=== PATIENT | male | born 1940 | race Caucasian/White ===

== ENCOUNTER 2016-06-25 10:17 | Inpatient (IN) | payer MEDICARE ==
[~2016-06-25] VITALS: Ht 170.2 cm; Wt 79.9 kg
[2016-06-25 10:23] VITALS: BP 110/55; PULSE 73; RESP 18; O2SAT 97
[2016-06-25] MEDS ORDERED: 0.9% Sodium Chloride 1,000 ML IV ONE ×2 (10:59→13:45)
[2016-06-25] MEDS ORDERED: HYDROmorphone 0.5 mg/0.5 mL iSecure Syringe IVPUSH PRN (11:00)
[2016-06-25] MEDS ORDERED: Acetaminophen IV 1,000 MG in IV Premix 1 EACH IV PRN (11:00)
[2016-06-25] MEDS ORDERED: Ondansetron 2 mg/mL 2 mL Inj IVPUSH PRN ×3 (11:00→15:40)
[2016-06-25] MEDS ORDERED: diphenhydrAMINE 25 mg Capsule PO PRN (11:00)
[2016-06-25 11:47] LABS: BASOPHILS % (AUTO) 0.3 % (0-3); EOSINOPHILS % (AUTO) 1.4 % (0-5); MONOCYTES % (AUTO) 8.5 % (4-12); Mean Corpuscular Hemoglobin 30.2 pg (27.0-35.0); Mean Corpuscular Volume 89.2 fL (81-100); NEUTROPHILS % (AUTO) 67.8 % (40-74); Platelet Count 189 bil/L (150-400)
--- NOTE | 2016-06-25 11:50 | ED.REPORT ---
HPI-Abd Pain M 40 and Over Date of Service Jun 25, 2016 ED Provider: Kimberly Brooks MD History of Present Illness: Patient is a 75 y.o. M with past medical history significant for colostomy, multiple bowel obstructions requiring surgery, CKD stage III, Began five day history of diarrhea, bloating, abdominal pain, evolved over 24 hours with increased abdominal pain nausea, vomiting, Patient irrigated ostomy last night with large return light colored stool white in color initally and brown soft to solid. Today patient describes intermittant little sharp cramps, made better by nothing, made worse by nothing, stated pain was worse at home, no chills, no fever, no nausea, vomit x 1 this morning reddish color. Last meal was steak and green beans last night. Previous colonscopy two years ago. Treated previously at [facility] Dr. Anthony Shell, previous tretment involved surgery with multiple unsuccessful attempts to unblock osteomy Nursing Notes Stated Complaint: POSSIBLE BOWEL BLOCKAGE Chief Complaint: Male Abdominal Pain Nursing Notes Reviewed: Yes Allergies: Coded Allergies: codeine (Verified Adverse Reaction, Unknown, rash, 06/25/16) lansoprazole (Verified Adverse Reaction, Unknown, rash, 06/25/16) General Time Seen by MD: 10:40 Chief Complaint Abdominal pain, Nausea Sudden in Onset?: No Similar Sx Previous: Yes Past Medical History Past Medical History Notes: Calcium 500 500 mg calcium (1,250 mg) tablet take 1 tablet by oral route 2 times every day Centrum Silver Ultra Men's 300 mcg-600 mcg-300 mcg tablet take 1 daily by mouth Glucosamine 500 mg tablet take 2 in AM and 2 in PM daily by mouth Imodium A-D 2 mg tablet take 2 tablet by oral route after 1st loose stool and 1 tablet (2 mg) after each next bowel movement; do not exceed 16 mg in 24hrs Lipitor 20 mg tablet take 1 tablet by oral route every day magnesium 250 mg tablet take 1 by Oral route once [place]-3 (with docosapentaenoic acid) 1,050 mg-1,200 mg capsule take 1 twice daily by mouth omeprazole 20 mg capsule,delayed release take 1 capsule by oral route every day before a meal Vitamin D3 1,000 unit capsule take 1 Capsule by Oral route 2 times every day Past Medical History Colostomy Arthritis Asthma Atrial fibrillation Cancer, colon carotid stenosis carotid surgery High cholesterol Hypertension Osteoporosis Stage 3 Kidney Disease thoracolumbar spine traumatic compression fractures Past Surgical History Colostomy X2 Abdominal Surgerys in 2001 and 2006 fo bowel obstruction Reports: Appendectomy Review of Systems Basic Review of Systems Eyes: Vision NL, No discharge ENT: Hearing NL, No nasal congestion Hematologic: No bleeding, No bruising Endocrine: No cold intolerance, No heat intolerance, No weight loss Skin: No bruising, No rash, No itch Neurologic: NL mental status, No weakness, No numbness Psychiatric: Normal thought content Constitutional: Reports: Chills, Denies: Fever Respiratory: Denies: Dyspnea on exertion, Hemoptysis, Non-productive cough Cardiovascular: Denies: Chest pain, Edema, Syncope GI: Reports: Abdominal pain, Diarrhea, Nausea, Vomiting, Denies: Bloody/tarry stool, Constipation, Dysphagia, Hematemesis, Hematochezia, Melena, Mucousy stool Male: Denies Dysuria, Denies Incontinence, Denies Urinary frequency, Denies Urination decreased Musculoskeletal: Denies: Back pain Complete sys rev & neg: except as marked. Physical Exam Initial Vital Signs Vital Signs (First) Date Time Temp Pulse Resp B/P Pulse Ox O2 Delivery O2 Flow Rate FiO2 06/25/16 10:23 36.1 73 18 110/55 97 06/25/16 13:32 Room Air Initial VS: Reviewed Head / Eyes: Atraumatic, Normocephalic, PERRL ENT: Mucous membranes moist, Conjunctiva normal, No scleral icterus Neck: Supple, Non-tender, Full range of motion Lymphatic: No lymphadenopathy Extremities: Vascular intact, Neuro intact, No swelling, No tenderness Skin: Warm, Dry, No cyanosis Neurologic: Alert, Oriented, Nonfocal Psychiatric: Mood/affect normal, Behavior normal, Normal thought content General/Constitutional: Awake, Alert Respiratory / Chest: Breath sounds NL, Breath sounds = bilat, No respiratory distress, No rales, No rhonchi, No wheezing Cardiovascular: Heart rate NL, Regular rhythm, Heart sounds NL, Peripheral circulation NL Abdomen: Atraumatic, Soft, McBurney's non-tender, No rebound, BS normoactive, No distention, No hernia, No palpable mass, No pulsatile mass Tenderness/Guarding/Rebound: Positive: Guarding involuntary, Tender LLQ... ( Mild), Tender LUQ... (Mild), Tender RUQ... (Mild) Organomegaly / Mass / Hernia: Negative: Aortic bruit, Hepatomegaly, Pulsatile mass, Splenomegaly Trauma - Abdomen Specific: Negative: Dunbar's sign, Underwood Stoddard's sign, Seat belt sign Interpretation & Diagnostics Lab Results Interpretation Result Diagram: 06/25/16 1140 06/25/16 1140 Test 06/25/16 11:40 06/25/16 13:43 White Blood Count 7.3th/mm3 (3.8-10.1) Red Blood Count 4.24mil/mm3 (4.40-5.80) Hemoglobin 12.8g/dL (13.8-17.2) Hematocrit 37.8% (41.0-50.0) Mean Corpuscular Volume 89.2fL (81-100) Mean Corpuscular Hemoglobin 30.2pg (27.0-35.0) Mean Corpuscular Hemoglobin Concent 33.9% (32.0-37.0) Red Cell Distribution Width 14.3% (12.3-15.4) Platelet Count 189bil/L (150-400) Neutrophils (%) (Auto) 67.8% (40-74) Lymphocytes (%) (Auto) 21.9% (14-46) Monocytes (%) (Auto) 8.5% (4-12) Eosinophils (%) (Auto) 1.4% (0-5) Basophils (%) (Auto) 0.3% (0-3) Prothrombin Time 10.2sec (8.1-12.5) Prothromb Time International Ratio 0.95ratio Sodium Level 139mEq/L (134-144) Potassium Level 4.4mEq/L (3.5-5.2) Chloride Level 104mEq/L (97-108) Carbon Dioxide Level 22mmol/L (18-29) Blood Urea Nitrogen 25mg/dL (8-27) Creatinine 1.38mg/dL (0.76-1.27) Estimat Glomerular Filtration Rate 54mL/min (>59) Glucose Level 105mg/dL (60-99) Lactic Acid Level 1.3mmol/L (0.4-2.0) Calcium Level 9.4mg/dL (8.5-10.1) Magnesium Level 1.8mg/dL (1.6-2.6) Total Bilirubin 0.6mg/dL (0.0-1.2) Aspartate Amino Transf (AST/SGOT) 29U/L (0-50) Alanine Aminotransferase (ALT/SGPT) 21U/L (0-44) Alkaline Phosphatase 99U/L (25-160) Total Protein 7.6g/dL (6.4-8.4) Albumin 4.2g/dL (3.4-5.0) Lipase 47U/L (13-60) Urine Color Straw (YELLOW) Urine Appearance Hazy (CLEAR,HAZY) Urine pH 5.5 (5.0-8.0) Urine Specific [place] 1.015 (1.003-1.035) Urine Protein Negativemg/dL (NEG,TRACE) Urine Glucose (UA) Negativemg/dL (NEGATIVE) Urine Ketones Negativemg/dL (NEGATIVE) Urine Occult Blood Negative (NEGATIVE) Urine Nitrite Negative (NEGATIVE) Urine Bilirubin Negative (NEGATIVE) Urine Urobilinogen Normalmg/dL (NORMAL) Urine Leukocyte Esterase Negative (NEGATIVE) Urine RBC 0-2/hpf (0-2) Urine WBC 0-5/hpf (0-5) Urine Epithelial Cells Occasional/hpf (NONE-MOD) Urine Crystals None seen (NONE SEEN) Urine Bacteria None/hpf (NONE-FEW) Urine Hyaline Casts Occasional/lpf (NONE) Urine Granular Casts None seen (NONE SEEN) Urine Waxy Casts None seen (NONE SEEN) Urine Red Blood Cell Casts None seen (NONE SEEN) Urine White Blood Cell Casts None seen (NONE SEEN) Urine Mucus Present (None Seen) Urine Trichomonas None seen (NONE SEEN) Urine Yeast None (NONE SEEN) Urinalysis Comment None Urine Culture Reflexed Not indicated X-Ray Abdominal Interpretation IMPRESSION: 1. No acute cardiopulmonary abnormality. 2. Partial small bowel obstruction. 3. 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 Dictated by: Choco Cuevas M.D. on 06/25/2016 at 12:59 Approved by: Choco Cuevas M.D. on 06/25/2016 at 13:04 Interpretation / Wet Read by: Interpret - Radiologist Re-Eval/Medical Decision Med Decision/Clinical Course 75 y.o. M presented with acute abdominal pain worsening over past 5 days, culminating in constellation of symptoms including diarrhea, nausea, vomiting, chills, sharp cramping pain, that were similar to previous episodes of bowel obstruction. Records of previous obstrtuctions obtained from [facility]. Give past history of bowel obstruction patient was worked up for acute bowel obstruction. Patient symptoms, physical exam findings, diagnositc imaging and labs consistent with small bowel obstruction. Discussed diagnosis with patient and reccomend admission medical management of small bowel obstruction, surgical consult if condition worsens, if surgery is indicated patient and spouse may consider transfer to [facility] for surgery. DDX acute small bowel obstruction, colitis, gastroenteritis, colon cancer, cholelithiasis, pancreatitis, mesenteric ischemia, Discharge & Departure Primary Impression: Partial small bowel obstruction Disposition: ADMITTED TO HOSPITAL Vital Signs - All Vital Signs Date Time Temp Pulse Resp B/P Pulse Ox O2 Delivery O2 Flow Rate FiO2 06/25/16 13:32 73 16 157/64 100 Room Air 06/25/16 10:23 36.1 73 18 110/55 97 Referrals: Jose Duong MD (PCP) Attending Statement Patient seen and examined. Symptoms and films consistent with small bowel obstruction. Last visit down to [facility] was in 2012. At this point we will opt for conservative medical management to begin here if his obstruction worsens will get surgery involved and consider transfer if surgical intervention is in fact required. AYE FRIEDMAN DO Jun 25, 2016 11:11 Kimberly Brooks MD Jun 25, 2016 14:17
[2016-06-25 12:03] LABS: INR 0.95 ratio
[2016-06-25 12:12] LABS: Magnesium 1.8 mg/dL (1.6-2.6)
--- NOTE | 2016-06-25 13:06 | DRSVH ---
PROCEDURE: X-RAY ACUTE ABDOMINAL SERIES ([id number]) INDICATIONS: abdominal pain, multiple obstructions previously TECHNIQUE: One view chest and two views of the abdomen were acquired. COMPARISON: None. FINDINGS: Surgical changes and devices: None. Chest: Lungs are clear. Mild biapical pleural thickening. Pleural calcifications right lateral chest wall. Mild eventration right hemidiaphragm. Heart size is normal. No pleural effusions. No pneumo peritoneum. Abdomen: Bowel gas pattern shows multiple stairstep air fluid levels within mildly dilated small bow el consistent with partial obstruction. There is air and stool within the colon. No suspicious calcif ications. Visualized solid organ contours appear normal. Vascular calcifications. Bones: No suspicious bony lesions. Compression fractures are present in T12, L1 and L4. IMPRESSION: 1. No acute cardiopulmonary abnormality. 2. Partial small bowel obstruction. 3. 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 Dictated by: Choco Cuevas M.D. on 06/25/2016 at 12:59 Approved by: Choco Cuevas M.D. on 06/25/2016 at 13:04
[2016-06-25 13:32] VITALS: BP 157/64; PULSE 73; RESP 16; O2SAT 100
[2016-06-25 14:08] LABS: APPEARANCE,URINE HAZY (CLEAR,HAZY); COLOR,URINE STRAW (YELLOW); OCCULT BLOOD,URINE NEGATIVE (NEGATIVE); PH,URINE 5.5 (5.0-8.0); UROBILINOGEN,URINE NORMAL (NORMAL)
[2016-06-25] MEDS ORDERED: HYDROmorphone 1 mg/mL Inj IVPUSH PRN (15:20)
[2016-06-25] MEDS ORDERED: 0.9% Sodium Chloride 1,000 ML IV SCH (15:20)
[2016-06-25] MEDS: 0.9% Sodium Chloride 1,000 ML IV SCH (15:38)
[2016-06-25] MEDS ORDERED: Alum-Mag Hydrox-Simeth 30 mL Suspension PO PRN (15:40)
--- NOTE | 2016-06-25 16:05 | NUR ---
ADMIT Pt arrived to unit from ED on stretcher. Pt walked from stretcher to bathroom and used urinal independently. Gait steady. Pt denies any pain, SOB, chest pain, N/V at this time. Patient on room air. Patient stated no output from colostomy at all, not even flatus, since yesterday. Pt instructed to be NPO and understood, per orders. Oriented patient to call light and told him to call for assistance. Addendum: 06/25/16 at 1751 by ANTHONY THOMAS RN ADMIT Patient was received from the ED via a gurney. Transferred independently in bed. Patient denies pain/nausea/SOB at this time. Colostomy in place without any BM/Flatus noted per patient. Last BM was 06/24/16 per patient. Oriented to room, call light and bathroom. (Pls. refer to admit grid for assessments).
--- NOTE | 2016-06-25 16:06 | PCM.HPMED ---
Subjective Date of Service Jun 25, 2016 Primary Provider: Admitting Physician: Kamar Maurer MD Primary Care Physician: Jose Duong MD Attending Physician: Kamar Maurer MD Admit Status: From the Emergency Department, Full Admit Chief Complaint: Abdominal Pain, Nausea with Vomiting History of Present Illness: Patient is a 75 year old male with a past medical history of Colon Cancer status post partial colectomy, Hyperlipidemia, and GERD. He presents to the ER complaining of a 1 day hx of worsening abdominal pain and nausea with vomiting. Pt states he developed diarrhea approximately 3 days ago. He states he has been having significant output from his colostomy over the last 3 days. Last night, he irrigated his colostomy, and this morning he awoke with diffuse abdominal cramping. He later developed nausea with vomiting. He states he has not had any output from his colostomy today. He has not passed any gas into his colostomy today. Pt states he has no appetite at this time. He states he has a hx of multiple bowel obstructions in the past which have required surgery at [facility] [place]. Pt has no other complaints or concerns at this time. Review of Systems: All systems reviewed and are negative except for what has already been mentioned in the HPI. Allergies Coded Allergies: codeine (Verified Adverse Reaction, Unknown, rash, 06/25/16) lansoprazole (Verified Adverse Reaction, Unknown, rash, 06/25/16) Home Medications Pts home medication list is not known. PMH 1. Colon Cancer, status post partial colectomy 2. Hyperlipidemia 3. GERD Surgical History 1. Partial Colectomy with Colostomy Placement Family History Pt denies any family hx of colon cancer. Social History Hx Alcohol Use: No Hx Substance Use: Yes (marijuana occ ) Hx Tobacco Use: Yes Smoking Status: Former Smoker Exam Vital Signs Vital Sign - Last Date Time Temp Pulse Resp B/P Pulse Ox O2 Delivery O2 Flow Rate FiO2 06/25/16 13:32 73 16 157/64 100 Room Air 06/25/16 10:23 36.1 Exam GENERAL: NAD, Pt laying in bed comfortably HEENT: AT/NC, PERRLA, EOMI, Mucus Membranes are moist CARDIAC: RRR; No M/R/G PULM: CTAB; No wheezes or rhonchi bilaterally ABD: Soft, Mildly TTP, Nondistended, Colostomy in place, No Hepatosplenomegaly appreciated EXT: No C/C/E; No calf tenderness bilaterally SKIN: Warm, Dry, [place], and Intact NEURO: Alert and oriented x3; Following all commands PSYCH: Normal mood and affect Lab and Diagnostics Result Diagram: 06/25/16 1140 06/25/16 1140 X-Rays, CTs and MRIs X-RAY ACUTE ABDOMINAL SERIES INDICATIONS: abdominal pain, multiple obstructions previously TECHNIQUE: One view chest and two views of the abdomen were acquired. COMPARISON: None. FINDINGS: Surgical changes and devices: None. Chest: Lungs are clear. Mild biapical pleural thickening. Pleural calcifications right lateral chest wall. Mild eventration right hemidiaphragm. Heart size is normal. No pleural effusions. No pneumoperitoneum. Abdomen: Bowel gas pattern shows multiple stairstep air fluid levels within mildly dilated small bowel consistent with partial obstruction. There is air and stool within the colon. No suspicious calcifications. Visualized solid organ contours appear normal. Vascular calcifications. Bones: No suspicious bony lesions. Compression fractures are present in T12, L1 and L4. IMPRESSION: 1. No acute cardiopulmonary abnormality. 2. Partial small bowel obstruction. 3. 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 Assessment & Plan Patient is a 75 year old male with a past medical history of Colon Cancer status post partial colectomy with colostomy placement, Hyperlipidemia, and GERD who is admitted to hospital for Partial Small Bowel Obstruction. 1. Partial Small Bowel Obstruction - Confirmed with abdominal series - NPO - Start IV Normal Saline at 125 mL/hour - Repeat Abdominal Series in AM - Repeat BMP in AM - Morphine 1-2 mg IV q 6 hours PRN for pain - General Surgery consulted 2. Hyperlipdemia - Pt is normally on statin therapy, however I will hold this for now given pt is NPO 3. GERD - Will start pt on Pantoprazole 40 mg IV daily and switch to PO when he can take PO again 4. Hx of Colon Cancer - Will check CEA level now CODE STATUS: DNR/DNI, per discussion with patient at bedside. Kamar Maurer MD Jun 25, 2016 16:06
[2016-06-25 16:09] VITALS: BP 131/65; PULSE 66; RESP 16; O2SAT 98
[2016-06-25] MEDS ORDERED: LOPE-147 PO (16:52)
[2016-06-25] MEDS ORDERED: OMEP20CA11 PO (16:52)
[2016-06-25] MEDS ORDERED: MAGN250T29 PO (16:52)
[2016-06-25] MEDS ORDERED: MULT-1104 PO (16:52)
[2016-06-25] MEDS ORDERED: OMEG1050 PO (16:52)
[2016-06-25] MEDS ORDERED: ATOR20TA65 PO (16:52)
[2016-06-25] MEDS ORDERED: CHOL10008 PO (16:52)
[2016-06-25] MEDS ORDERED: GLUC500T12 PO (16:52)
[2016-06-25] MEDS ORDERED: CALC600T12 PO (16:52)
[2016-06-25 19:28] VITALS: BP 174/72; PULSE 75; RESP 20; O2SAT 96
--- NOTE | 2016-06-25 20:17 | NUR ---
Case Management: Attempted to provide IMM but room darkened, pt appears to be sleeping. Will have to try again tomorrow. Shawanda Joshi RN
[2016-06-25 23:58] VITALS: BP 146/70; PULSE 77; RESP 20; O2SAT 95
[2016-06-26] VITALS (9 sets, daily range): BP systolic 113–168; BP diastolic 58–79; PULSE 65–96; RESP 14–20; O2SAT 95–98
--- NOTE | 2016-06-26 00:56 | CONS ---
[address] [address] CONSULTATION REPORT PATIENT: AKASH KIMBALL : 1940 MR#: [id number] ADMIT: 06/25/2016 JOB ID: [id number] DATE OF SERVICE: 06/25/2016 CHIEF COMPLAINT AND IDENTIFICATION: I have been asked by the medicine service and the emergency department to consult on this 75-year-old man with a small bowel obstruction. HISTORY OF PRESENT ILLNESS: The patient presents with symptoms that he feels are consistent with previous bowel obstructions. He has had a colostomy since 2002 and will intermittently irrigate this out. He had a normal bowel movement two days ago, felt obstipated and irrigated out his colostomy, but over the past 12-24 hours he has had no colostomy output, as well as feeling bloated and anorexic. An acute abdominal series was consistent with a partial small bowel obstruction. He was admitted to the medicine service. Pertinent surgical history includes an abdominoperineal resection in 2002 for a rectal cancer. He received preoperative chemoradiation and postoperative chemotherapy, but has been considered cleared of his disease. He did have some problems with bowel obstructions except for several years after his surgery, including several explorations by colorectal surgeon, Dr. Zaid Shell. Most recently, approximately seven years ago, he had a chicken bone perforation of small bowel that required a complex surgery by Dr. Shell. He has not required surgery since then, though it sounds as if he has had some admissions for bowel obstruction, as well as staying home and treating himself with restricted diet, liquids, during that time. PAST MEDICAL HISTORY: As above. Hyperlipidemia, GE reflux disease. MEDICATIONS: Atorvastatin, loperamide p.r.n., omeprazole, vitamins, glucosamine. ALLERGIES: 1. CODEINE. 2. LANSOPRAZOLE. SOCIAL HISTORY: He is . He is seen with his . FAMILY HISTORY: Noncontributory. REVIEW OF SYSTEMS: Negative. He did have a colonoscopy through his stoma roughly 2-3 years ago. PHYSICAL EXAMINATION: BMI is 28.3. He is in no acute distress. Temperature is 36.3, pulse is 66, blood pressure is 131/65, room air saturation is 98. His lungs are clear. Heart sounds are regular. His abdomen has intermittent bowel tones, no high-pitched rushes or tinkles, no borborygmi. His abdomen is mildly distended, mildly tympanic. Colostomy has no output in it. Extremities without edema. LABORATORIES: Electrolytes normal, his creatinine is 1.38. CEA is pending. Hematocrit is 37.8. White count is 7.3. Acute abdominal series demonstrates findings consistent with a partial small bowel obstruction that includes small bowel in stairstep pattern, but without marked dilation of small bowel. I do see a small amount of gas and a fair amount of stool in the ascending colon near the splenic flexure. IMPRESSION AND PLAN: A 75-year-old male with a partial small bowel obstruction. He is not terribly distended, and he is not nauseous and vomiting, so I think keeping him n.p.o. will be sufficient rather than placing a nasogastric tube. I reviewed with him that the general approach would be conservative management for 24-48 hours, possibly a Gastrografin contrast study from above, but after that I would make a recommendation to operate on him if he is not better. He and his would like to stay at [facility], although they have not made a final decision as to whether or not he would want to be transferred to [facility] for surgery if that is felt to be necessary. I have encouraged them to make a final decision by tomorrow as if he is not making significant progress in the first 24 hours there is a higher likelihood that he will need to have surgery and I think waiting several days until he is felt to be ready for surgery is not in his best interest if he is then going to need to wait an additional day or two, or even more, to be transferred down to [facility] and accepted by Dr. Shell. I have explained this all to he and his , and they seem agreeable to re-evaluation in the morning with plain films and examination, and then a decision as to whether they will stay here at [facility] even if it looks like he may need surgery.
[2016-06-26] MEDS: 0.9% Sodium Chloride 1,000 ML IV SCH ×3 (03:40→21:38)
--- NOTE | 2016-06-26 04:51 | NUR ---
No Ostomy Output Ostomy is empty at start of shift- stoma not visible. IV site patent infusing NS at 100ml/h, wrapped with Zoltan and positionally dependent. Pt ambulates to BR ad chano. on Room air, no complaints of chest pain or SOB, GI pain is spasmodic. CS check Q6 due to NPO status. Care continues
[2016-06-26 07:12] LABS: BASOPHILS % (AUTO) 0.3 % (0-3); EOSINOPHILS % (AUTO) 2.1 % (0-5); MONOCYTES % (AUTO) 12.8 % (4-12); Mean Corpuscular Hemoglobin 31.1 pg (27.0-35.0); Mean Corpuscular Volume 90.7 fL (81-100); NEUTROPHILS % (AUTO) 46.5 % (40-74); Platelet Count 157 bil/L (150-400)
--- NOTE | 2016-06-26 08:19 | PCM.PNMED ---
Subjective Date of Service Jun 26, 2016 Subjective Patient resting comfortably this morning. He denies any nausea or vomiting. Currently do not denies any abdominal pain. He notes no stool output into his ostomy currently but the presence of casts. Exam Vital Signs Vital Sign - Last Date Time Temp Pulse Resp B/P Pulse Ox O2 Delivery O2 Flow Rate FiO2 06/26/16 05:42 36.4 65 20 113/62 96 Room Air Intake and Output 06/25/16 06/25/16 06/26/16 Cumulative From/Thru 14:59 22:59 06:59 06/25/16 10:23 - 06/26/16 06:28 Intake Total 1400 ml 0 ml 1128 ml 2528 ml Output Total 0 ml 550 ml 550 ml Balance 1400 ml 0 ml 578 ml 1978 ml Intake Oral 0 ml 0 ml 0 ml IV Total 1400 ml 1128 ml 2528 ml Output Urine Total 0 ml 550 ml 550 ml Stool Total 0 ml 0 ml 0 ml Exam Constitutional: Elderly man in no acute distress Head: Normocephalic atraumatic Chest: Clear to auscultation Cor: Regular rate and rhythm S1-S2 Abdomen: Soft but slightly distended, no tenderness palpation. Bowel sounds are hypoactive Extremities: No pedal edema Neuro: Alert and oriented 3, motor strength is intact bilaterally Lab and Diagnostics Laboratory Tests 72 Hours Test 06/25/16 11:40 06/25/16 13:43 06/26/16 06:10 06/26/16 07:00 White Blood Count 7.3th/mm3 (3.8-10.1) 3.8th/mm3 (3.8-10.1) Red Blood Count 4.24mil/mm3 (4.40-5.80) 3.76mil/mm3 (4.40-5.80) Hemoglobin 12.8g/dL (13.8-17.2) 11.7g/dL (13.8-17.2) Hematocrit 37.8% (41.0-50.0) 34.1% (41.0-50.0) Mean Corpuscular Volume 89.2fL (81-100) 90.7fL (81-100) Mean Corpuscular Hemoglobin 30.2pg (27.0-35.0) 31.1pg (27.0-35.0) Mean Corpuscular Hemoglobin Concent 33.9% (32.0-37.0) 34.3% (32.0-37.0) Red Cell Distribution Width 14.3% (12.3-15.4) 14.2% (12.3-15.4) Platelet Count 189bil/L (150-400) 157bil/L (150-400) Neutrophils (%) (Auto) 67.8% (40-74) 46.5% (40-74) Lymphocytes (%) (Auto) 21.9% (14-46) 37.8% (14-46) Monocytes (%) (Auto) 8.5% (4-12) 12.8% (4-12) Eosinophils (%) (Auto) 1.4% (0-5) 2.1% (0-5) Basophils (%) (Auto) 0.3% (0-3) 0.3% (0-3) Prothrombin Time 10.2sec (8.1-12.5) Prothromb Time International Ratio 0.95ratio Sodium Level 139mEq/L (134-144) 143mEq/L (134-144) Potassium Level 4.4mEq/L (3.5-5.2) 4.3mEq/L (3.5-5.2) Chloride Level 104mEq/L (97-108) 111mEq/L (97-108) Carbon Dioxide Level 22mmol/L (18-29) 20mmol/L (18-29) Blood Urea Nitrogen 25mg/dL (8-27) 21mg/dL (8-27) Creatinine 1.38mg/dL (0.76-1.27) 1.12mg/dL (0.76-1.27) Estimat Glomerular Filtration Rate 54mL/min (>59) 68mL/min (>59) Glucose Level 105mg/dL (60-99) 96mg/dL (60-99) Lactic Acid Level 1.3mmol/L (0.4-2.0) Calcium Level 9.4mg/dL (8.5-10.1) 8.0mg/dL (8.5-10.1) Magnesium Level 1.8mg/dL (1.6-2.6) Total Bilirubin 0.6mg/dL (0.0-1.2) 0.4mg/dL (0.0-1.2) Aspartate Amino Transf (AST/SGOT) 29U/L (0-50) 24U/L (0-50) Alanine Aminotransferase (ALT/SGPT) 21U/L (0-44) 15U/L (0-44) Alkaline Phosphatase 99U/L (25-160) 78U/L (25-160) Total Protein 7.6g/dL (6.4-8.4) 5.7g/dL (6.4-8.4) Albumin 4.2g/dL (3.4-5.0) 3.3g/dL (3.4-5.0) Lipase 47U/L (13-60) Carcinoembryonic Antigen 5.4ng/mL (0.0-4.7) Urine Color Straw (YELLOW) Urine Appearance Hazy (CLEAR,HAZY) Urine pH 5.5 (5.0-8.0) Urine Specific [place] 1.015 (1.003-1.035) Urine Protein Negativemg/dL (NEG,TRACE) Urine Glucose (UA) Negativemg/dL (NEGATIVE) Urine Ketones Negativemg/dL (NEGATIVE) Urine Occult Blood Negative (NEGATIVE) Urine Nitrite Negative (NEGATIVE) Urine Bilirubin Negative (NEGATIVE) Urine Urobilinogen Normalmg/dL (NORMAL) Urine Leukocyte Esterase Negative (NEGATIVE) Urine RBC 0-2/hpf (0-2) Urine WBC 0-5/hpf (0-5) Urine Epithelial Cells Occasional/hpf (NONE-MOD) Urine Crystals None seen (NONE SEEN) Urine Bacteria None/hpf (NONE-FEW) Urine Hyaline Casts Occasional/lpf (NONE) Urine Granular Casts None seen (NONE SEEN) Urine Waxy Casts None seen (NONE SEEN) Urine Red Blood Cell Casts None seen (NONE SEEN) Urine White Blood Cell Casts None seen (NONE SEEN) Urine Mucus Present (None Seen) Urine Trichomonas None seen (NONE SEEN) Urine Yeast None (NONE SEEN) Urinalysis Comment None Urine Culture Reflexed Not indicated Result Diagram: 06/26/16 0700 06/26/16 0610 X-Rays, CTs and MRIs X-RAY ACUTE ABDOMINAL SERIES INDICATIONS: abdominal pain, multiple obstructions previously TECHNIQUE: One view chest and two views of the abdomen were acquired. COMPARISON: None. FINDINGS: Surgical changes and devices: None. Chest: Lungs are clear. Mild biapical pleural thickening. Pleural calcifications right lateral chest wall. Mild eventration right hemidiaphragm. Heart size is normal. No pleural effusions. No pneumoperitoneum. Abdomen: Bowel gas pattern shows multiple stairstep air fluid levels within mildly dilated small bowel consistent with partial obstruction. There is air and stool within the colon. No suspicious calcifications. Visualized solid organ contours appear normal. Vascular calcifications. Bones: No suspicious bony lesions. Compression fractures are present in T12, L1 and L4. IMPRESSION: 1. No acute cardiopulmonary abnormality. 2. Partial small bowel obstruction. 3. 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 Assessment & Plan Patient is a 75 year old male with a past medical history of Colon Cancer status post partial colectomy with colostomy placement, Hyperlipidemia, and GERD who is admitted to hospital for Partial Small Bowel Obstruction. 1. Partial Small Bowel Obstruction,acute,present on admit - Confirmed with abdominal series and repeat abdominal series this morning - NPO - Start IV Normal Saline at 125 mL/hour - Repeat Abdominal Series in AM -- Morphine 1-2 mg IV q 6 hours PRN for pain - General Surgery consultation appreciated. And will follow also 2. Hyperlipdemia - Pt is normally on statin therapy, however I will hold this for now given pt is NPO 3. GERD - Will start pt on Pantoprazole 40 mg IV daily and switch to PO when he can take PO again 4. Hx of Colon Cancer - Will check CEA level now CODE STATUS: DNR/DNI, per discussion with patient at bedside. Pain Evaluation: Adequate Pain Control VTE Mechanical Devices: Intermittant Pneumatic CD Time spent 30 minutes Peggy Lion MD Jun 26, 2016 08:19
[2016-06-26] MEDS ORDERED: Famotidine Inj 20 MG in IV Premix 1 EACH IV SCH (08:30)
[2016-06-26] MEDS: Pantoprazole 4 mg/mL 10 mL Inj IVPUSH SCH (09:10)
[2016-06-26] MEDS ORDERED: Ampicillin-Sulbactam Inj 3,000 MG in 0.9% Sodium Chloride 100 ML IV ONE (09:35)
--- NOTE | 2016-06-26 09:39 | PROG NOTE ---
[address] [address] PROGRESS NOTE PATIENT: AKASH KIMBALL : 1940 MR#: [id number] ADMIT: 06/25/2016 JOB ID: [id number] DATE: 06/26/2016 SUBJECTIVE: Hospital day two. He tells me he subjectively feels better with less pain, but is not passing any stool, minimal gas out his colostomy. His vital signs are stable. Examination of his abdomen is a bit more distended than yesterday, he has moderate intermittent bowel tones, some rushes and tinkles, no significant tenderness. LABORATORIES: Show white count has dropped down to 3.8, his hematocrit is stable at 34 with hydration. His plain films demonstrate worsening air-fluid levels, slightly more dilated small intestine. IMPRESSION AND PLAN: Small bowel obstruction without improvement. He is roughly day seven of his symptoms. We have discussed further diagnostic and therapeutic interventions, and at this point, after weighing all the pros and cons, I have recommended that we go to the operating room for lysis of adhesions. With this, we discussed whether he would want to be transferred to [facility], and he and his say no and would like to proceed with me. We will start off laparoscopically, but I have given them roughly 66% likelihood of conversion to open procedure. We will proceed later on today.
--- NOTE | 2016-06-26 10:42 | DRSVH ---
PROCEDURE: X-RAY ACUTE ABDOMINAL SERIES ([id number]) INDICATIONS: PARTIAL SBO TECHNIQUE: One view chest and two views of the abdomen were acquired. COMPARISON: [facility], CR, XR ABD ACUTE SERIES 3VW, 06/25/2016, 12:26. FINDINGS: Surgical changes and devices: None. Chest: Lungs are clear. Mild biapical pleural thickening. Pleural calcifications right lateral chest wall. Mild eventration right hemidiaphragm. Heart size is normal. No pleural effusions. No pneumo peritoneum. Abdomen: Bowel gas pattern shows multiple stairstep air fluid levels within mildly dilated small bow el consistent with partial obstruction. There is air and stool within the colon. No suspicious calcif ications. Visualized solid organ contours appear normal. Vascular calcifications. Bones: No suspicious bony lesions. Compression fractures are present in T12, L1 and L4. IMPRESSION: 1. Partial small bowel obstructive pattern redemonstrated. Dictated by: Vahe DORSEY Interpreted: Melissa Swann MD on 06/26/2016 at 10:41 Transcribed by: GRISELDA on 06/26/2016 at 10:41 Approved by: Melissa Swann M.D. on 06/26/2016 at 17:22
--- NOTE | 2016-06-26 10:56 | NUR ---
Case Management: IMM given and explained to pt and at 10:10. Nicole JIANGRN
--- NOTE | 2016-06-26 11:33 | NUR ---
OR Pt left to OR at 1130, IV SL, Antibiotics already sent up, report given to Gianna JORGENSEN
[2016-06-26] MEDS ORDERED: Lactated Ringer's 1,000 ML IV ONE ×2 (12:10→16:50)
[2016-06-26] MEDS ORDERED: Rocuronium 10 mg/mL 5 mL Inj ONE (12:20)
[2016-06-26] MEDS ORDERED: EPHEDrine/NS 5 mg/mL 5 mL Syringe ONE (12:20)
[2016-06-26] MEDS ORDERED: HYDROmorphone 2 mg/mL Inj ONE (12:20)
[2016-06-26] MEDS ORDERED: Propofol 10,000 mCg/mL 20 mL Inj ONE (12:20)
[2016-06-26] MEDS ORDERED: Phenylephrine 10,000 mCg/mL Inj ONE (12:20)
[2016-06-26] MEDS ORDERED: Dexamethasone 4 mg/mL Inj ONE (12:20)
[2016-06-26] MEDS ORDERED: Ondansetron 2 mg/mL 2 mL Inj ONE (12:20)
[2016-06-26] MEDS ORDERED: Glycopyrrolate 0.2 mg/mL 5 mL Inj ONE (12:20)
[2016-06-26] MEDS ORDERED: Neostigmine 1 mg/mL 5 mL Inj ONE (12:20)
[2016-06-26] MEDS ORDERED: fentaNYL-PF 50 mCg/mL 2 mL Inj ONE (12:20)
[2016-06-26] MEDS ORDERED: Bupivacaine-MPF 0.5% W/EPI 30 mL Inj INFILTRATE ONE (12:45)
[2016-06-26] MEDS ORDERED: Lactated Ringer's 500 ML IV PRN (12:58)
[2016-06-26] MEDS ORDERED: Lactated Ringer's 1,000 ML IV SCH (12:58)
--- NOTE | 2016-06-26 12:58 | PCM.HPANE ---
Patient Data Date of Service: Jun 26, 2016 ([id number]) Surgeon Admitting Provider:Kamar Maurer MD Attending Provider:Kamar Maurer MD Primary Care Physician:Jose Duong MD Other Provider: Reason for Visit Partial Small Bowel Obstruction Ht/WT & BMI Height (Feet): 5 Height (Inches): 7.00 Weight (Kilograms): 81.820 Body Mass Index 28.31 Allergies Coded Allergies: codeine (Verified Adverse Reaction, Unknown, rash, 06/25/16) lansoprazole (Verified Adverse Reaction, Unknown, rash, 06/25/16) Past Anesthesia History Anesthesia History: Positive for:: Anesthesia Reactions (sundowners/confusion) Diabetes History Hx Diabetes?: No Current Bedside Blood Glucose: 96 MRSA MRSA: No Medications Home Meds Incl Beta Linda: No Reported Medications Cholecalciferol (Vitamin D3) (Vitamin D3)1,000 Unit Tab.chew1,000 Unit PO BID 06/25/16 Omeprazole 20 Mg Capsule.dr20 Mg PO DAILY Ref 0 06/25/16 [place]-3S/Dha/Epa/Fish Oil ([place] Power 1,050 mg Softgel)1,050 Mg Capsule1,050 Mg PO BID 06/25/16 Magnesium Oxide (Magnesium)250 Mg [id number] Mg PO BID 06/25/16 Atorvastatin Calcium 20 Mg Jdqobh71 Mg PO DAILY #90 06/25/16 Loperamide HCl (Imodium A-D)2 Mg Capsule2 Mg PO DAILY PRN For Diarrhea or Loose Stool 06/25/16 Glucosamine 500 Mg [id number] Mg PO BID 06/25/16 Multivit-Min/FA/Lycopen/Lutein (Centrum Silver Men Tablet)300 Mcg-600 Mcg-300 Mcg Tablet1 Each PO DAILY 06/25/16 Calcium Carbonate (Calcium)600 Mg [id number] Mg PO BID 06/25/16 History History of ENT Problems?: No Denture Type: Full- Upper Full- Lower Hx of Heart Problems?: Yes Cardiovascular History: Positive for:: Hypertension Irregular Heartbeat (afib) Denies:: Cardiac Surgery Congestive Heart Failure Edema Heart Murmur Pacemaker Thrombophlebitis Hx of Respiratory Problem?: Yes Respiratory History: Positive for:: Asthma Denies:: COPD Chest Surgery Dyspnea Emphysema Hemoptysis Pneumonia Tuberculosis Hx Neurologic Problems?: No Hx of GI Problems?: Yes Gastrointestinal History: Positive for:: Gastroesphageal Reflux Heartburn Denies:: Diverticulitis Gastrointestinal Bleeding Hepatitis Hiatal Hernia Rectal Bleeding Other GI Pertinent History: small bowel obstruction. Pt has colostomy Hx of Problems?: No Genitourinary History: Denies:: HX of Hemodialysis Kidney Stones Urinary Tract Infection HX of Peritoneal Dialysis: No Male Hx: Denies:: Prostate Problems Scrotal Mass Testicular Surgery Hx Musculoskeletal Problems?: Yes Musculoskeletal History: Positive for:: Back Injury (Thoracolumbar spine traumatic compression fractures) Denies:: Joint Replacement Musculoskeletal Trauma Hx of Psycho/Social Problems?: No Hx Surgeries?: Yes (multiple abd surgeries, colostomy, appendectomy, carotid surgery) Hx Any Other Health Problems?: Yes Other History: Positive for:: Cancer (colon) Hospitalization (small bowel obstruction) Denies:: Thyroid Disease History Blood Transfusions: Positive for:: Accept Blood Products? Blood Transfusions Denies:: Blood Transfuse Reaction Hx Diabetes: NoBedside Blood Glucose: 96 Other Pertinent History: carotid stenosis, osteoporosis, stage 3 CKD Hx Alcohol Use: NoHx Substance Use: Yes (occasional use of weed) Smoking Status: Former Smoker Have You Smoked inLast 12 mo: NoApprox How Many Cigarettes/day: 40 cigargettes per day Stop/Bang Treated for Sleep Apnea?: Yes Do You Have a CPAP Machine?: Yes (pt refuses to use CPAP) S-Snoring: Do You Snore Loudly: Yes T-Tired: feel tired, fatigued: Yes O-Obsered: Observed not breath: Yes P-Blood Pressure: treated: No B- Body Mass Index > 35 kg/m2: No A- Age over 50: Yes N- Neck Large Circumference: No G- Gender Male: Yes MACRINA Total Score: 4 Risk Assessment Category Category 1A: Patient has history of documented sleep apnea, and HAS NOT received any narcotic, sedative or anesthesia administration during this stay. Category 1B: Patient has history of documented sleep apnea, and HAS received any narcotic , sedative or anesthesia administration during this stay Category 2: Patient has SUSPECTED Obstructive Sleep Apnea, and HAS received any narcotic , sedative or anesthesia administration during this stay. Category 3: Patient has SUSPECTED Obstructive Sleep Apnea and HAS NOT received narcotic, sedative or anesthesia administration during this stay. Category 4: Outpatient in Procedural Areas with known sleep apnea or who screen positive for High Risk via the STOP/BANG questionnaire. Exam Exam Vital Signs Vital Signs Date Time Temp Pulse Resp B/P Pulse Ox O2 Delivery O2 Flow Rate FiO2 06/26/16 09:32 36.6 71 14 116/58 95 Room Air 06/26/16 05:42 36.4 65 20 113/62 96 Room Air General Appearance: Alert, Oriented X3, Cooperative, Mild Distress (abdominal bloating) HEENT/AIRWAY: MP 2, Neck Movement (Some difficulty turning head side to side), Mouth Opening (3 FBMO) Lungs: Clear to Auscultation, Normal Air Movement Heart: Exam Unremarkable, Regular Rate/Rhythm, No Murmurs/Rubs/Gallops Meds/Labs/Diagnostics Admission Meds Current Medications Sodium Chloride 1,000 ml @ 0 mls/hr Q0M ONCE IV Last administered on 14:10; Start 06/25/16 at 13:45; Stop 06/25/16 at 13:46; Status DC Sodium Chloride (Normal Saline) 1,000 ml @ 100 mls/hr Q10H IV Last administered on 06/26/16 03:40; Start 06/25/16 at 15:38 Pantoprazole 40 mg 40 mg DAILYAC IVPUSH Last administered on 06/26/16 09:10; Start 06/26/16 at 07:30 Lactated Ringer's (Lr) 1,000 ml @ ud STK-MED ONCE IV Last administered on 06/26 12:10; Start 06/26/16 at 12:10; Stop 06/26/16 at 12:38; Status DC Bedside Blood Glucose: 96 Labs Test 06/25/16 11:40 06/25/16 13:43 06/26/16 06:10 06/26/16 07:00 Prothrombin Time 10.2sec (8.1-12.5) Prothromb Time International Ratio 0.95ratio Lactic Acid Level 1.3mmol/L (0.4-2.0) Magnesium Level 1.8mg/dL (1.6-2.6) Lipase 47U/L (13-60) Carcinoembryonic Antigen 5.4ng/mL (0.0-4.7) Urine Color Straw (YELLOW) Urine Appearance Hazy (CLEAR,HAZY) Urine pH 5.5 (5.0-8.0) Urine Specific [place] 1.015 (1.003-1.035) Urine Protein Negativemg/dL (NEG,TRACE) Urine Glucose (UA) Negativemg/dL (NEGATIVE) Urine Ketones Negativemg/dL (NEGATIVE) Urine Occult Blood Negative (NEGATIVE) Urine Nitrite Negative (NEGATIVE) Urine Bilirubin Negative (NEGATIVE) Urine Urobilinogen Normalmg/dL (NORMAL) Urine Leukocyte Esterase Negative (NEGATIVE) Urine RBC 0-2/hpf (0-2) Urine WBC 0-5/hpf (0-5) Urine Epithelial Cells Occasional/hpf (NONE-MOD) Urine Crystals None seen (NONE SEEN) Urine Bacteria None/hpf (NONE-FEW) Urine Hyaline Casts Occasional/lpf (NONE) Urine Granular Casts None seen (NONE SEEN) Urine Waxy Casts None seen (NONE SEEN) Urine Red Blood Cell Casts None seen (NONE SEEN) Urine White Blood Cell Casts None seen (NONE SEEN) Urine Mucus Present (None Seen) Urine Trichomonas None seen (NONE SEEN) Urine Yeast None (NONE SEEN) Urinalysis Comment None Urine Culture Reflexed Not indicated Sodium Level 143mEq/L (134-144) Potassium Level 4.3mEq/L (3.5-5.2) Chloride Level 111mEq/L (97-108) Carbon Dioxide Level 20mmol/L (18-29) Blood Urea Nitrogen 21mg/dL (8-27) Creatinine 1.12mg/dL (0.76-1.27) Estimat Glomerular Filtration Rate 68mL/min (>59) Glucose Level 96mg/dL (60-99) Calcium Level 8.0mg/dL (8.5-10.1) Total Bilirubin 0.4mg/dL (0.0-1.2) Aspartate Amino Transf (AST/SGOT) 24U/L (0-50) Alanine Aminotransferase (ALT/SGPT) 15U/L (0-44) Alkaline Phosphatase 78U/L (25-160) Total Protein 5.7g/dL (6.4-8.4) Albumin 3.3g/dL (3.4-5.0) White Blood Count 3.8th/mm3 (3.8-10.1) Red Blood Count 3.76mil/mm3 (4.40-5.80) Hemoglobin 11.7g/dL (13.8-17.2) Hematocrit 34.1% (41.0-50.0) Mean Corpuscular Volume 90.7fL (81-100) Mean Corpuscular Hemoglobin 31.1pg (27.0-35.0) Mean Corpuscular Hemoglobin Concent 34.3% (32.0-37.0) Red Cell Distribution Width 14.2% (12.3-15.4) Platelet Count 157bil/L (150-400) Neutrophils (%) (Auto) 46.5% (40-74) Lymphocytes (%) (Auto) 37.8% (14-46) Monocytes (%) (Auto) 12.8% (4-12) Eosinophils (%) (Auto) 2.1% (0-5) Basophils (%) (Auto) 0.3% (0-3) Plan Impression Patient chart reviewed, patient interviewed and anesthestic plan with risks, benefits, and alternatives discussed, and informed consent obtained. NPO Status: > 8hrs ASA Physical Status: ASA3 Severe Disease (s/p colon cancer with colostomy) Anesthetic Support Modalities: Arterial Line (possible arterial line with risks of bleeding, infection, decreased blood flow to the hand discussed), Central Line (Possible central line placement, risks of arterial puncture, pneumothorax, hematoma, air embolism discussed) Anesthetic Plan: GA Bene/Risks/Altern/Consents: Yes HP Complete Prior to Induction: Yes Other DNR/DNI reversed for the perioperative period. Also discussed risks of possibly needing postoperative intubation with mechanical support and the patient was OK with this. Enrike Vance MD Jun 26, 2016 12:58
[2016-06-26] MEDS ORDERED: Atropine 0.4 mg/mL Inj IVPUSH PRN (13:00)
[2016-06-26] MEDS ORDERED: hydrALAZINE 20 mg/mL Inj IVPUSH PRN (13:00)
[2016-06-26] MEDS ORDERED: Labetalol 5 mg/mL 4 mL Inj IV PRN (13:00)
[2016-06-26] MEDS ORDERED: Phenylephrine 10,000 mCg/mL Inj IVPUSH PRN (13:00)
[2016-06-26] MEDS ORDERED: Ondansetron 2 mg/mL 2 mL Inj IVPUSH PRN ×2 (13:00→16:15)
[2016-06-26] MEDS ORDERED: MetoCLOpramide 5 mg/mL 2 mL Inj IVPUSH PRN ×2 (13:00→16:15)
[2016-06-26] MEDS ORDERED: EPHEDrine Sulfate 50 mg/mL Inj IVPUSH PRN (13:00)
[2016-06-26] MEDS ORDERED: HYDROmorphone 1 mg/mL Inj IVPUSH PRN (13:00)
[2016-06-26] MEDS ORDERED: fentaNYL-PF 50 mCg/mL 2 mL Inj IVPUSH PRN (13:00)
--- NOTE | 2016-06-26 14:44 | NUR ---
Social Work-attempted initial assessment: Data:EMR Reviewed. Pt is a 75 y/o male who was admitted on 06/25/16 for partial small bowel obstruction per H&P. Pt's insurance is [facility] and [employer] and PCP is Jose Duong MD. EMR reviewed. Pt's readmission score is 1. SW attempted to met with pt to discuss discharge planning, but pt currently out of his room at the OR. Pt has ostomy at baseline and lives at home with . SW to follow up with pt tomorrow and complete assessment when appropriate. SW will continue to follow. Assessment:pt who is independent at baseline. Plan: SW to follow up with assessment tomorrow, pt currently at the OR. SW will continue to follow. PURVI Motta
[2016-06-26] MEDS ORDERED: Bupivacaine Liposome 1.3% 20 mL Inj ONE (14:50)
[2016-06-26] MEDS ORDERED: Bupivacaine Liposome 1.3% 20 mL Inj INFILTRATE ONE (15:40)
[2016-06-26] MEDS ORDERED: HYDROmorphone PCA 0.2 mg/mL 30 mL Inj IV PRN (16:15)
--- NOTE | 2016-06-26 16:29 | PCM.ANEP2 ---
Post Anesthesia Evaluation ASA/CMS Post Anesthesia VS in Patient's Normal Range?: Yes Resp Stable; Airway Patent?: Yes CV Function & Hydration Stable: Yes Mental Status Recovered?: Yes Pain control Satisfactory?: Yes N/V Control Satisfactory?: Yes Enrike Vance MD Jun 26, 2016 16:29
--- NOTE | 2016-06-26 16:29 | PCM.ANEP1 ---
Post Anesthesia Phase 1 PACU Phase 1 Assessment Date of Service: Jun 26, 2016 ([id number]) Vital Signs Vital Signs Date Time Temp Pulse Resp B/P Pulse Ox O2 Delivery O2 Flow Rate FiO2 06/26/16 16:15 82 17 150/63 97 Simple Mask 10 06/26/16 16:10 81 15 129/58 97 Simple Mask 10 06/26/16 16:05 36.8 82 17 143/59 96 Simple Mask 10 06/26/16 09:32 36.6 71 14 116/58 95 Room Air Anesthetic Administered: GA Level of Alertness: Awake, talking MUNOZ's with Equal Strength: Yes Pain: No Pain Scale Score: 2 Nausea or Vomiting: No Oxygen Delivery: Simple Mask Lungs: Clear to Auscultation, Normal Air Movement Dermatome Level: Full Sensation Enrike Vance MD Jun 26, 2016 16:29
[2016-06-26] MEDS ORDERED: Haloperidol 5 mg/mL Inj IVPUSH PRN (16:55)
--- NOTE | 2016-06-26 19:16 | NUR ---
Post op Pt arrived on floor at 1710, Morphine administered for pain, titus draining clear cordelia urine, YOSELYN draining Sero-sanguinous fluid. dressing C/D/I, Pulse-ox set up, Sating at 96% on 5L via mask. NG tube to low intermittent suction. see post op assessment, care continued.
[2016-06-26] MEDS: Ampicillin-Sulbactam Inj 3,000 MG in 0.9% Sodium Chloride 100 ML IV SCH (21:13)
--- NOTE | 2016-06-26 23:56 | OP ---
[address] [address] OPERATIVE REPORT PATIENT: AKASH KIMBALL : 1940 MR#: [id number] ADMIT: 06/25/2016 JOB ID: [id number] DATE OF SURGERY: 06/26/2016 PREOPERATIVE DIAGNOSIS(ES): Small bowel obstruction. POSTOPERATIVE DIAGNOSIS(ES): Small bowel obstruction. PROCEDURE: Laparoscopic lysis of adhesions, converted to open lysis of adhesions, repair of small bowel enterotomy x2, with extended degree of difficulty. SURGEON: Je Sahni MD. KITCHENWHERE MAKER: 1. Marquita Aquino PA-C. 2. Jessica An MS3. INDICATIONS: A 75-year-old man with a history of an APR and multiple previous abdominal surgeries with a small bowel obstruction. He is brought to the operating room after informed consent. FINDINGS: 1. captain assistant was medically necessary for camera operation, retraction and assistance with this very complex surgery. 2. Extended degree of difficulty due to the extensive nature of the adhesions, as noted by operative time of roughly four hours. 3. The patient had extensive intra-abdominal adhesions that were taken down laparoscopically, but ultimately we got down to the pelvis and had to open him as described below. 4. The patient had two recognized enterotomies, one that occurred early at the time of laparoscopy as described below that was immediately recognized and controlled without spillage, and a second one after opening him and freeing up the final loop of small bowel that was stuck in the pelvis to the sacral region that did not result in any significant spillage. PROCEDURE: The patient was brought to the operating room. General anesthetic was administered. Kulkarni catheter was placed. His abdomen was prepped and draped in sterile fashion. We removed his ostomy bag and covered it with a sponge and Tegaderm. We then also included an Ioban drape and our draping. Surgical time-out was performed. The patient received perioperative Unasyn. We began by placing an optical trocar in the left upper quadrant/mid epigastrium using a 5 mm 0 degree scope, the abdomen was entered safely. We insufflated the abdomen. We then changed our 30 degree scope. I could see that the small bowel was dilated. There were a fair number of adhesions to the anterior abdominal wall. We placed initially one right abdominal port and then a second one and we began taking down adhesions of the small bowel through the midline incision. We did this with care. However, at one point, we did have a recognized small enterotomy without any spillage. I did close this laparoscopically using interrupted 3-0 Vicryl with intracorporeal knot tying. We now continued with careful scissors dissection not using any electrical cautery to prevent possible bowel injury. We now spent roughly two hours laparoscopically taking down adhesions, making good steady progress throughout. First, we cleared off the anterior abdominal wall. We then took down adhesions of the small bowel to small bowel and small bowel to the right-sided abdominal wall. We placed two ports over the right mid abdomen (I believe I may have misspoke and said right mid abdomen for the first port, whereas the first ports were placed in the left abdomen to the left of midline) and we used these to take down adhesions to the left of the midline. We kept encountering multiple adhesions and thinking that we may have solved the problem as we did definitely see some distal decompressed small bowel down at the ileocecal valve. Eventually, we placed another midline port just above the umbilicus to allow us to look down to the pelvis with the camera. We continued with our lysis of adhesions and at roughly the two hour point identified that we had taken down many of the adhesions, but that there appeared to be an adhesive band deep down in the pelvis on the sacrum, consistent with the patient's previous history of APR. It was quite difficult getting good visualization and at one point we were worried that we had sustained a small bowel enterotomy; and therefore, decided that we were going to need to convert to open surgery to make progress. We then removed our laparoscopic ports and let our CO2 out. We now proceeded to open the abdomen down the midline and place the Bookwalter retractor. This was quite expeditious given the fact that we had taken down all the anterior abdominal wall adhesions. We now turned our attention down to the pelvis and indeed these were very tight difficult adhesions that required some finger fracturing, as well as scissors dissection to get up the loop of small bowel. It turned out that we had not made an enterotomy at the time that we converted to open surgery, but in finishing up this dissection I did make one small recognized enterotomy that was immediately closed without any spillage of enteric contents. At this point, we inspected all the small bowel. It became clear that actually the proximal small bowel was not dilated and it appeared that he had a bit of a closed loop obstruction. We ended up taking down multiple interloop adhesions at this point and eventually freed up the entire small bowel, and it became clear that he did have an obstructive lesion in the mid jejunum that precluded any backflow, as well as an obstructive lesion in the distal ileum just below the level of the pelvic brim. Having taken down all the adhesions, we ran the entire small bowel three times, identifying the enterotomy repair that we had done laparoscopically. This was intact, but I did take it down and redo it open in two layers with running and then interrupted 3-0 Vicryl. There were several areas where the serosa or the seromuscular layer of the small bowel had been torn, but without full-thickness injury, and we did repair these and reinforce them with interrupted Vicryl. Having run the small bowel multiple times we were satisfied that we had no other enterotomies other than the two that we had recognized and closed, and that we repaired all significant seromuscular injuries. We now irrigated out the abdomen and suctioned out all of our irrigation. We placed a piece of Seprafilm down in the pelvis and returned our small bowel in an anatomic position into the abdomen. I would note that it appeared that the patient had an appendectomy at the time of his initial APR and that there was a segment of the terminal ileum that was definitely adherent to the staple line. We now placed additional Seprafilm on top of small bowel and brought down greater omentum as best we could, checked our position, placed a single Karan-Lee drain down into the pelvis, and then proceeded to close the midline fascia with running looped PDS followed by subcutaneous irrigation and skin closure with sara. We now protected the incision, removed our drapes, and placed a stoma bag on the patient. The patient was transferred to the recovery room after extubation. Intraoperative findings were discussed with his .
[2016-06-27] VITALS (11 sets, daily range): BP systolic 126–176; BP diastolic 69–79; PULSE 85–96; RESP 15–18; O2SAT 91–98
[2016-06-27] MEDS: Ampicillin-Sulbactam Inj 3,000 MG in 0.9% Sodium Chloride 100 ML IV SCH (02:38)
--- NOTE | 2016-06-27 04:08 | NUR ---
Pain/activity Pt reporting pain up 6/10 to abdomen. Dilaudid SECURITY SYSTEM TECHNICIAN was set up at 0.1mg/10 min/06mg total. Pt reporting this to be effective for pain management. Pt remains NPO, NG tube to continuous suction, only clear drainage in tube (none in canister). Pt has titus draining cordelia urine. IVF are NS at 100ml/hr. Pt is on 3L O2 via Oxymask with CPOx 95%, will continue to wean O2. Colostomy without stool, abdominal lap sites (4) are CDI, midline ABD dressing is CDI and YOSELYN patent, with serosanguineous drainage. in room overnight. Pt has been drowsy, easy to awaken and oriented x3. SCDs are on. Pt is being turned q4 hrs. Encouraging cough/deep breathing.
[2016-06-27 06:50] LABS: BASOPHILS % (AUTO) 0 % (0-3); EOSINOPHILS % (AUTO) 0 % (0-5); MONOCYTES % (AUTO) 16.1 % (4-12); Mean Corpuscular Hemoglobin 30.2 pg (27.0-35.0); Mean Corpuscular Volume 90.7 fL (81-100); NEUTROPHILS % (AUTO) 61.7 % (40-74); Platelet Count 170 bil/L (150-400)
[2016-06-27] MEDS: 0.9% Sodium Chloride 1,000 ML IV SCH ×2 (07:40→18:18)
[2016-06-27] MEDS ORDERED: Sodium Chloride LOK Flush 10 mL Syringe IVFLUSH PRN ×2 (07:50)
--- NOTE | 2016-06-27 08:11 | PCM.PNSURG ---
Subjective Date of Service: Jun 27, 2016 Visit Information: Reason for Visit Partial Small Bowel Obstruction Surgery/Surgery Date Post-Op Day # 1 Date of Admission: Jun 25, 2016 at 13:59 Hospital Day # Subjective: Complains of pain not controlled with current CHEMICAL ANALYTICAL SAMPLER, currently receiving the low- dose pathway. Denies nausea or vomiting. Has not been out of bed. States has not passed gas via ostomy. Postop General: Other (as above) Gastrointestinal: No N/V Pain Management: CHEMICAL ANALYTICAL SAMPLER without Basal Postop Activity: Other (bedrest) Objective Vital Sign- Last 8 Hours Date Time Temp Pulse Resp B/P Pulse Ox O2 Delivery O2 Flow Rate FiO2 06/27/16 06:51 37.4 85 16 158/79 98 OxyMask 3.00 06/27/16 05:43 16 96 06/27/16 01:00 37.6 96 18 154/73 96 OxyMask 3.00 06/27/16 00:58 16 95 Intake and Output- Last 8 Hour 06/27/16 Cumulative From/Thru 06:59 06/25/16 10:23 - 06/27/16 06:52 Intake Total 1302 ml 6616 ml Output Total 1160 ml 2780 ml Balance 142 ml 3836 ml Intake Oral 0 ml 0 ml IV Total 1302 ml 6616 ml Output Urine Total 1100 ml 2600 ml Stool Total 0 ml Gastric Drainage Total 0 ml 0 ml Drainage Total 60 ml 180 ml General: Alert, Cooperative, Moderate Distress Lungs: Clear to Auscultation (poor effort) Heart: Regular Rate/Rhythm, Murmur (grade 2/6 systolic murmur) Abdomen: Soft, Appropriately tender, Non-distended, Ostomy (viable with minimal serous fluid in the bag) SURGICAL WOUND : Wound General Appearence: Lavelle, No Erythema, Other (minimal serous discharge at inferior aspect) Extremities: Thigh&Calf Soft/Nontender Neuro: Normal Speech Catheters: Urethral 2 Way Kulkarni Result Diagram: 06/27/1662406/27/16624 Assessment & Plan Impression Primary diagnosis: Small bowel obstruction. POD #1 following enterolysis and repair of small bowel enterotomy 2. No return of bowel function as expected. Poor pain control. Other diagnoses: 1. Colon Cancer, status post partial colectomy 2. Hyperlipidemia 3. GERD 4. Former cigarette smoker Problems: Plan 1. Initiate TPN at Dr. Sahni's direction 2. Incentive spirometry 3. Change to standard dose CHEMICAL ANALYTICAL SAMPLER 4. Out of bed today 5. Initiate subcutaneous heparin DVT prophylaxis 6. Repeat labs in the morning. 7. Operative findings were discussed. Pain Management: CHEMICAL ANALYTICAL SAMPLER VTE Prophylaxis: Sub-Q Heparin (Unfractionated), SCDs Resuscitation Status: DNR/DNI:Do Not Resuscitate/Intubate Tanvir Wilcox PA-C Jun 27, 2016 08:11
[2016-06-27] MEDS ORDERED: Ondansetron 2 mg/mL 2 mL Inj IVPUSH PRN (08:15)
[2016-06-27] MEDS ORDERED: MetoCLOpramide 5 mg/mL 2 mL Inj IVPUSH PRN (08:15)
[2016-06-27] MEDS ORDERED: HYDROmorphone 0.5 mg/0.5 mL iSecure Syringe IVPUSH PRN (08:15)
[2016-06-27] MEDS: TPN Per Pharmacist XX SCH (08:30)
[2016-06-27] MEDS: Pantoprazole 4 mg/mL 10 mL Inj IVPUSH SCH (08:34)
[2016-06-27] MEDS: Heparin 5,000 Unit/mL Inj SUBQ SCH ×2 (08:37→17:13)
--- NOTE | 2016-06-27 11:45 | PCM.CONPHA ---
Subjective Date of Service: Jun 27, 2016 Abdominal Pain, Nausea with Vomiting Reason for Pharmacy Consult: TPN Management Objective Vital Signs Date Time Temp Pulse Resp B/P Pulse Ox O2 Delivery O2 Flow Rate FiO2 06/27/16 09:43 Supplement Oxygen 06/27/16 08:47 37.1 86 15 138/69 95 OxyMask 1.00 06/27/16 06:51 37.4 85 16 158/79 98 OxyMask 3.00 06/27/16 05:43 16 96 06/27/16 01:00 37.6 96 18 154/73 96 OxyMask 3.00 06/27/16 00:58 16 95 06/26/16 23:00 16 98 06/26/16 21:04 Supplement Oxygen 06/26/16 20:52 16 98 06/26/16 20:17 36.9 96 18 168/79 98 Simple Mask 6.00 06/26/16 17:05 36.0 83 18 167/74 96 Room Air 06/26/16 16:29 Simple Mask 06/26/16 16:15 82 17 150/63 97 Simple Mask 10 06/26/16 16:10 81 15 129/58 97 Simple Mask 10 06/26/16 16:05 36.8 82 17 143/59 96 Simple Mask 10 Intake and Output 06/25/16 06/26/16 06/27/16 00:00 00:00 00:00 Intake Total 1400 ml 3914 ml Output Total 0 ml 1620 ml Balance 1400 ml 2294 ml Weight (Kilograms): 85.800 Height (Feet): 5 Height (Inches): 7.00 Test 06/25/16 11:40 06/25/16 13:43 06/27/16 06:25 Prothrombin Time 10.2sec (8.1-12.5) Prothromb Time International Ratio 0.95ratio Lactic Acid Level 1.3mmol/L (0.4-2.0) Magnesium Level 1.8mg/dL (1.6-2.6) Lipase 47U/L (13-60) Carcinoembryonic Antigen 5.4ng/mL (0.0-4.7) Urine Color Straw (YELLOW) Urine Appearance Hazy (CLEAR,HAZY) Urine pH 5.5 (5.0-8.0) Urine Specific [place] 1.015 (1.003-1.035) Urine Protein Negativemg/dL (NEG,TRACE) Urine Glucose (UA) Negativemg/dL (NEGATIVE) Urine Ketones Negativemg/dL (NEGATIVE) Urine Occult Blood Negative (NEGATIVE) Urine Nitrite Negative (NEGATIVE) Urine Bilirubin Negative (NEGATIVE) Urine Urobilinogen Normalmg/dL (NORMAL) Urine Leukocyte Esterase Negative (NEGATIVE) Urine RBC 0-2/hpf (0-2) Urine WBC 0-5/hpf (0-5) Urine Epithelial Cells Occasional/hpf (NONE-MOD) Urine Crystals None seen (NONE SEEN) Urine Bacteria None/hpf (NONE-FEW) Urine Hyaline Casts Occasional/lpf (NONE) Urine Granular Casts None seen (NONE SEEN) Urine Waxy Casts None seen (NONE SEEN) Urine Red Blood Cell Casts None seen (NONE SEEN) Urine White Blood Cell Casts None seen (NONE SEEN) Urine Mucus Present (None Seen) Urine Trichomonas None seen (NONE SEEN) Urine Yeast None (NONE SEEN) Urinalysis Comment None Urine Culture Reflexed Not indicated White Blood Count 3.2th/mm3 (3.8-10.1) Red Blood Count 3.77mil/mm3 (4.40-5.80) Hemoglobin 11.4g/dL (13.8-17.2) Hematocrit 34.2% (41.0-50.0) Mean Corpuscular Volume 90.7fL (81-100) Mean Corpuscular Hemoglobin 30.2pg (27.0-35.0) Mean Corpuscular Hemoglobin Concent 33.3% (32.0-37.0) Red Cell Distribution Width 14.3% (12.3-15.4) Platelet Count 170bil/L (150-400) Neutrophils (%) (Auto) 61.7% (40-74) Lymphocytes (%) (Auto) 22.2% (14-46) Monocytes (%) (Auto) 16.1% (4-12) Eosinophils (%) (Auto) 0% (0-5) Basophils (%) (Auto) 0% (0-3) Sodium Level 144mEq/L (134-144) Potassium Level 4.6mEq/L (3.5-5.2) Chloride Level 110mEq/L (97-108) Carbon Dioxide Level 22mmol/L (18-29) Blood Urea Nitrogen 23mg/dL (8-27) Creatinine 1.41mg/dL (0.76-1.27) Estimat Glomerular Filtration Rate 52mL/min (>59) Glucose Level 135mg/dL (60-99) Calcium Level 7.7mg/dL (8.5-10.1) Total Bilirubin 0.5mg/dL (0.0-1.2) Aspartate Amino Transf (AST/SGOT) 22U/L (0-50) Alanine Aminotransferase (ALT/SGPT) 13U/L (0-44) Alkaline Phosphatase 67U/L (25-160) Total Protein 5.6g/dL (6.4-8.4) Albumin 3.2g/dL (3.4-5.0) Assessment/Plan Assessment/Plan TPN per Pharmacy Indication: small bowel obstruction Pertinent info: NPO since 06/25/16, PICC line (pending) Labs: Na: 144 K: 4.6 Cl: 110 SCr: 1.41 Macronutrients per business support manager's recommendation: - Amino acids: 70 g - Dextrose: 180 g - Lipids: 30 g TPN has been ordered as follows: 1 27-Jun-16 Substrates AMINO ACIDS 70 g DEXTROSE 180 g LIPIDS 30 g Sterile Water for Injection QS mL Total Volume 1500 mL Additives Sodium Chloride 50 mEq Sodium Acetate 20 mEq Potassium Chloride 40 mEq Potassium Phosphate 20 mEq Calcium Gluconate 9 mEq Magnesium Sulfate 16 mEq Regular Insulin 0 units Famotidine 0 mg Multivitamins 1 std dose Trace Elements 1 std dose Thiamine 100 mg Folic Acid 1 mg Ascorbic Acid 0 mg Start infusion tonight (CENTRAL LINE ONLY) at standard hang time of 2100 @ rate of 63 mL/hr. CMP, magnesium, phos labs have been ordered. Pharmacy to continue to monitor and dose TPN daily. Thank you, David Fu Pharmacist David Fu Jun 27, 2016 11:45
--- NOTE | 2016-06-27 12:09 | PCM.PNMED ---
Subjective Date of Service Jun 27, 2016 Subjective POD#1, on MANAGER NEWS dilaudid c/o surgical pain, denied SOB, cough, sputum noted on Oxymask 3liters, >95% had 37.6F at 1am denied any diarrhea, cold-like sx Exam Vital Signs Vital Sign - Last Date Time Temp Pulse Resp B/P Pulse Ox O2 Delivery O2 Flow Rate FiO2 06/27/16 11:47 16 95 06/27/16 09:43 Supplement Oxygen 06/27/16 08:47 37.1 86 138/69 1.00 Intake and Output 06/26/16 06/26/16 06/27/16 Cumulative From/Thru 15:00 23:00 07:00 06/25/16 10:23 - 06/27/16 06:52 Intake Total 2686 ml 100 ml 1302 ml 6616 ml Output Total 100 ml 970 ml 1160 ml 2780 ml Balance 2586 ml -870 ml 142 ml 3836 ml Intake Oral 0 ml 0 ml 0 ml IV Total 2686 ml 100 ml 1302 ml 6616 ml Output Urine Total 100 ml 850 ml 1100 ml 2600 ml Stool Total 0 ml 0 ml Gastric Drainage Total 0 ml 0 ml Drainage Total 120 ml 60 ml 180 ml Exam NAD, comfortably laying down on the bed no JVD, MMM, no LAD RRR, nl s1, s2 no mrg CTAB, no w,c S,tender, fresh scar with sterilely dressed, serosanguineous fluid in YOSELYN drain warm, no edema, pulses 2/2 IVs and Medications Medications Reviewed: Medications were reviewed in detail Lab and Diagnostics Result Diagram: 06/27/1662406/27/16 0625 X-Rays, CTs and MRIs X-RAY ACUTE ABDOMINAL SERIES INDICATIONS: abdominal pain, multiple obstructions previously TECHNIQUE: One view chest and two views of the abdomen were acquired. COMPARISON: None. FINDINGS: Surgical changes and devices: None. Chest: Lungs are clear. Mild biapical pleural thickening. Pleural calcifications right lateral chest wall. Mild eventration right hemidiaphragm. Heart size is normal. No pleural effusions. No pneumoperitoneum. Abdomen: Bowel gas pattern shows multiple stairstep air fluid levels within mildly dilated small bowel consistent with partial obstruction. There is air and stool within the colon. No suspicious calcifications. Visualized solid organ contours appear normal. Vascular calcifications. Bones: No suspicious bony lesions. Compression fractures are present in T12, L1 and L4. IMPRESSION: 1. No acute cardiopulmonary abnormality. 2. Partial small bowel obstruction. 3. 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 Assessment & Plan Patient is a 75 year old male with a past medical history of Colon Cancer status post partial colectomy with colostomy placement, Hyperlipidemia, and GERD who is admitted to hospital for Partial Small Bowel Obstruction. acute, active 1. Partial Small Bowel Obstruction, POA, s/p surgery 06/26, -POD#1, postop management, pain control, diet per surgery team -CXR for possible postop atelectasis given mild hypoxia, fever, -titus to be d/sarah per surgery team today -O2 supplement as needed, aggressive use of incentive spirometer, encouraged with patient as long as pain is tolerable. chronic, stable 2. Hyperlipdemia, likely to resume statin once cleared for diet. 3. GERD, continue Pantoprazole 40 mg IV daily and switch to PO when he can take PO again 4. Hx of Colon Cancer, CEA mildly elevated. CODE STATUS: reverted to Full Code today diet: per surgery team dispo: per surgery team VTE Prophylaxis: Sub-Q Heparin (Unfractionated), SCDs VTE Mechanical Devices: Intermittant Pneumatic CD Resuscitation Status: DNR/DNI:Do Not Resuscitate/Intubate Time spent 35min Darrion Small MD Jun 27, 2016 12:09
--- NOTE | 2016-06-27 14:02 | NUR ---
Pain control P: Pt stated pain 9/10 with QUALITY ASSURANCE MONITOR BODY use. I: Nursing encouraged continuing QUALITY ASSURANCE MONITOR BODY use and suggested position changes for alternative pain relief. E: Pt stated pain 4/10 following QUALITY ASSURANCE MONITOR BODY use and position change. Care continues.
--- NOTE | 2016-06-27 14:34 | NUR ---
Social Work-initial assessment: Data:See initial assessment. Pt is a 75 y/o male who was admitted on 06/25/16 for partial small bowel obstruction per H&P. Pt's insurance is [employer] and PCP is Jose Duong MD.EMR reviewed. Pt's readmission score is 1. SW met with pt to discuss discharge planning, SW role explained. Pt is alert and oriented x3. Pt resides at home with his where he remains independent with ADLS. Pt does not use any DME and drives. Pt has no HH or SNF history. Pt has no [place] [facility] care or [place] benefits. SW discussed DPOA/advanced directive, pt states he has completed this, SW encouraged a copy to be brought into the hospital. Pt has colostomy which he manages at home. Pt to have PICC line placed today and start on TPN. Pt also has NG tube in place. Pt has been up independent in his room. Pt states his will provide transport home. SW provided phone number and plan on white board in room. No anticipated discharge needs. SW will continue to follow if needs arise. Assessment:Pt who is independent at baseline. Plan:Pt to discharge home when medically stable via POV. No anticipated discharge needs. SW will continue to follow if needs arise. PURIV Motta Addendum: 06/27/16 at 1439 by JAGDISH MATTSON Amended: Links added.
--- NOTE | 2016-06-27 16:33 | DRSVH ---
PROCEDURE: X-RAY PICC LINE PLACEMENT BY NURSE ([id number]) INDICATIONS: TOTAL PARENTERAL NUTRITION COMPARISON: [facility], CR, XR ABD ACUTE SERIES 3VW, 06/26/2016, 5:23. FINDINGS: PICC was placed by the intravenous therapy team from the right side. Fluoroscopic spot fi lm demonstrates tip projected over the lower SVC Airspace opacity present within the mid left lung and left lung base. IMPRESSION: Tip of PICC projected over the lower SVC . Left midlung and basilar airspace opacity consistent with atelectasis, aspiration or pneumonia. Left pleural effusion cannot be excluded. Dictated by: Vahe SAPPA Interpreted: Joaquina Calderón MD on 06/27/2016 at 16:32 Transcribed by: JENNIFER on 06/27/2016 at 16:33 Approved by: Joaquina Calderón MD, PhD on 06/27/2016 at 17:21
--- NOTE | 2016-06-27 17:21 | NUR ---
ACTIVITY/PAIN CONTROL Got patient up to edge of bed and he was able to stand at edge of bed with FWW for about 2 mins. Rates pain 9/10 after getting back into bed. Gave bolus on LEAD HANDLER and reminded patient he can use his button. Earlier in day has gotten pain down to 4/10 which was more tolerable and comfortable for him. Maintaining O2 sats @ 92% on 1 LPM via oxymask. NGT in place with minimal output. No air in ostomy bag. All abdominal incisions are C/D/I. Serous fluid in YOSELYN drain. Continue to monitor on hourly rounding.
[2016-06-27] MEDS: HYDROmorphone PCA 0.2 mg/mL 30 mL Inj IV PRN (20:18)
[2016-06-27] MEDS: Total Parenteral Nutrition 1 BAG IV SCH (21:14)
[2016-06-28] VITALS (10 sets, daily range): BP systolic 149–186; BP diastolic 66–72; PULSE 74–102; RESP 14–20; O2SAT 91–97
[2016-06-28] MEDS: Heparin 5,000 Unit/mL Inj SUBQ SCH ×3 (00:21→16:29)
--- NOTE | 2016-06-28 03:29 | NUR ---
Activity/ Update Pt. got out of bed and stood for a couple of minutes. Pt. states "it's painful for my abdomen, but helps with my backache". Pt. was weak while doing this, and required 1 person assist with a fww. Pt. has TPN going. Pt. has had minimal green fluid coming out of NG tube. Serous fluid coming out of YOSELYN drain. Pt. also reports that the BOOSTER STATION OPERATOR is effective for his pain. Pt. states "I have very little pain now". Will continue to monitor.
[2016-06-28] MEDS: 0.9% Sodium Chloride 1,000 ML IV SCH ×2 (04:42→13:38)
[2016-06-28 05:14] LABS: Mean Corpuscular Hemoglobin 29.7 pg (27.0-35.0); Mean Corpuscular Volume 91.6 fL (81-100); Platelet Count 157 bil/L (150-400)
[2016-06-28 05:33] LABS: BASOPHILS % (AUTO) 0 % (0-3); EOSINOPHILS % (AUTO) 0 % (0-5); MONOCYTES % (AUTO) 12 % (4-12); NEUTROPHILS % (AUTO) 46 % (40-74)
[2016-06-28 05:36] LABS: Magnesium 2.3 mg/dL (1.6-2.6); Phosphorus 1.6 mg/dL (2.5-4.9)
[2016-06-28] MEDS: TPN Per Pharmacist XX SCH (08:30)
[2016-06-28] MEDS: Pantoprazole 4 mg/mL 10 mL Inj IVPUSH SCH (08:32)
--- NOTE | 2016-06-28 09:06 | NUR ---
FLOR: Patient unable to accept FLOR at this time, asked QUANTITATIVE STRATEGY ANALYST to follow up via phone NOK
--- NOTE | 2016-06-28 10:24 | NUR ---
NUTRITION ASSESSMENT: ASSESS: Pt is a 75yo M admitted for partial SBO. He has been NPOx3 days. POD #2 following enterolysis and repair of small bowel enterotomy 2. Pts bowel function has not returned. Continues to have NGT for suction. TPN was started 3. Today pts phos is low so will continue TPN at current rate. Pharmacy is aware. PMHX: Colon, Ca, HLD, GERD LABS: Reviewed. Cl 109, Glu 151, Ca 7.8, phos 1.6, Alb 2.8 MEDS: Reviewed. GI: 0 stool via colostomy SKIN: Bird 16 NUTRITION SUPPORT: TPN- 180g Dex, 70g AA, 30g Lipids providing 1192kcal and 70g pro. CURRENT WTS: 86.7kg, BMI 29.9kg/m2, admit wt: 81.8kg (stated) DIET: NPO EST. NEEDS: Colon Ca, surgery Kcals: 2145-2575kcal/day (25-30kcal/kg) Pro: 100-130g/day (1.2-1.5g/kg) Fluid: 2145-2575ml/day (1ml/kcal/kg) NUTRITION DIAGNOSIS: 1.) Inadequate oral intake related to decreased ability to consume sufficient energy and altered GI function as evidenced by current NPO status and need for nutrition support due to decreased bowel function. NUTRITION INTERVENTION: 1.) Due to low Phos, recommend continue on current TPN rate of 180g Dex, 70g AA and 30g lipids. 2.) Continue to monitor labs closely. Once tolerated, recommend increase macronutrients towards goal of 375g Dex, 125g AA and 55g lipids to provide 2325kcal and 125g pro (100% estimated needs) Dex load 3.0mg/kg/min MONITOR / EVAL: labs, TPN ana maria, NPO, GI, wt, POC, nutrition status. Will continue to monitor per high nutrition risk guidelines
--- NOTE | 2016-06-28 10:31 | PROG NOTE ---
[address] [address] PROGRESS NOTE PATIENT: AKASH KIMBALL : 1940 MR#: [id number] ADMIT: 06/25/2016 JOB ID: [id number] DATE: 06/28/2016 SUBJECTIVE: Postop day two. He is afebrile. Pulse is in the 70s this morning. Blood pressure is within normal limits, maybe a little bit high. The nasogastric tube has not put a great deal of fluid out. He is not passing gas, however. Karan-Lee drain put out 80 cc of serous fluid yesterday. OBJECTIVE: On examination, he is awake and alert. He tells me that he is relatively comfortable. His incision shows no sign of infection. He does not have any gas in his stoma bag. His abdomen is soft. His Karan-Lee drain has serous fluid in it. LABORATORIES: His white count is 3.2, now with a significant bandemia. Hematocrit is consistent with some hemodilution at 31.8. Chemistries are normal. His glucose is a little high at 151, and his phosphorus is a little bit low at 1.6. Procalcitonin is 4.93. IMPRESSION AND PLAN: Doing well. I am concerned about the bandemia. He is receiving total parenteral nutrition. At this point, we will simply keep him as is, likely increase his insulin and his total parenteral nutrition, and I will follow his white count. His NG tube may come out later today.
--- NOTE | 2016-06-28 10:58 | PCM.PHAPRO ---
Progress Date of Service: Jun 28, 2016 Abdominal Pain, Nausea with Vomiting TPN per pharmacy Indication: small bowel obstruction No changes to macronutrients per dietitian recommendation. Macronutrients as follows: - Amino acids: 70 g - Dextrose: 180 g - Lipids: 30 g Changes made to TPN (to hang tonight at 2100): - Chloride levels remain slightly elevated and phosphate levels are low. Decrease potassium chloride to 30 mEq, increase potassium phosphate to 30 mEq. - Corrected calcium for low albumin is 8.76, increase calcium gluconate to 11 mEq. - Magnesium levels increased from 1.8 to 2.3; decrease magnesium sulfate to 12 mEq. TPN has been ordered as follows: PARENTERAL NUTRITION ORDERS 2 28-Jun-16 Standard Hang Time: 2100 Substrates Total kcal: 1192 AMINO ACIDS 70 g DEXTROSE 180 g Total Volume (mL): 1500 LIPIDS 30 g Sterile Water for Injection QS mL To Infuse Over (hrs): 24 Total Volume 1500 mL At at a rate of (mL/hr): 63 Additives Sodium Chloride 50 mEq "typical" daily requirements Sodium Acetate 20 mEq Sodium 50-120mEq Potassium Chloride 30 mEq Potassium 60-120mEq Potassium Phosphate 30 mEq Phosphate 20-40mEq Calcium Gluconate 11 mEq Magnesium 8-32mEq Magnesium Sulfate 12 mEq Calcium 9-22mEq Acetate* 80-120mEq Chloride* 80-120mEq Regular Insulin 0 units *Depending on acid-base status Famotidine 0 mg Multivitamins 1 std dose Insulin Regimen Trace Elements 1 std dose none Thiamine 100 mg Regular Low Intensity Subcut Folic Acid 1 mg Regular Medium Intensity Subcut Ascorbic Acid 0 mg Regular High Intensity Subcut Regular Insulin Infusion Other: David Fu Jun 28, 2016 10:58
[2016-06-28] MEDS: Piperacillin-Tazo 3.375 Gm Inj 3.375 GM in Dextrose 5% Minibag Plus 50 ML IV SCH ×2 (11:33→16:40)
--- NOTE | 2016-06-28 12:05 | PCM.PNMED ---
Subjective Date of Service Jun 28, 2016 Subjective pt looked mildly ill, breathing fast, c/o mild SOB, no cough/sputum noted to have fever 37.6 again overnight, bandemia, elevated procal level today per , improved from surgical stand point pt denied passing gas, BM Exam Vital Signs Vital Sign - Last Date Time Temp Pulse Resp B/P Pulse Ox O2 Delivery O2 Flow Rate FiO2 06/28/16 09:45 36.6 81 14 149/66 93 Room Air 06/28/16 05:35 2.00 Intake and Output 06/27/16 06/27/16 06/28/16 Cumulative From/Thru 15:00 23:00 07:00 06/25/16 10:23 - 06/28/16 06:08 Intake Total 1169 ml 1583 ml 9368 ml Output Total 820 ml 960 ml 4560 ml Balance 349 ml 623 ml 4808 ml Intake Oral 0 ml 0 ml 0 ml IV Total 1169 ml 1583 ml 9368 ml Output Urine Total 700 ml 950 ml 4250 ml Stool Total 0 ml 0 ml 0 ml Gastric Drainage Total 100 ml 0 ml 100 ml Drainage Total 20 ml 10 ml 210 ml Exam NAD, comfortably laying down on the bed no JVD, MMM, no LAD RRR, nl s1, s2 no mrg CTAB, no w,c S,tender, fresh scar with sterilely dressed, serosanguineous fluid in YOSELYN drain warm, no edema, pulses 2/2 IVs and Medications Medications Reviewed: Medications were reviewed in detail Lab and Diagnostics Result Diagram: 06/28/1643406/28/16 0435 X-Rays, CTs and MRIs X-RAY ACUTE ABDOMINAL SERIES INDICATIONS: abdominal pain, multiple obstructions previously TECHNIQUE: One view chest and two views of the abdomen were acquired. COMPARISON: None. FINDINGS: Surgical changes and devices: None. Chest: Lungs are clear. Mild biapical pleural thickening. Pleural calcifications right lateral chest wall. Mild eventration right hemidiaphragm. Heart size is normal. No pleural effusions. No pneumoperitoneum. Abdomen: Bowel gas pattern shows multiple stairstep air fluid levels within mildly dilated small bowel consistent with partial obstruction. There is air and stool within the colon. No suspicious calcifications. Visualized solid organ contours appear normal. Vascular calcifications. Bones: No suspicious bony lesions. Compression fractures are present in T12, L1 and L4. IMPRESSION: 1. No acute cardiopulmonary abnormality. 2. Partial small bowel obstruction. 3. 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 Assessment & Plan Patient is a 75 year old male with a past medical history of Colon Cancer status post partial colectomy with colostomy placement, Hyperlipidemia, and GERD who is admitted to hospital for Partial Small Bowel Obstruction. acute, active #Partial Small Bowel Obstruction, POA, s/p surgery 06/26, -POD#2 postop management, pain control, diet per surgery team -titus management, if not indicated then will consider d/c to avoid infection risks. -O2 supplement as needed, aggressive use of incentive spirometer, encouraged with patient as long as pain is tolerable. #probable sepsis with HR/fever/RR, labs showed bandemia, elevated procalcitonin , concerning for postop acute infection, unclear source, unlikely surgical wound infection per surgical eval. -will get CXR, UA -BCX 2sets sent, empirically started zosyn for now, will monitor clinically -O2 supplement as needed -trends fever curve, wbc, procalcitonin daily #CKD2, POA, Cr wax and wane, seemed at baseline, will monitor for now, avoid renal toxin, adjust meds renally chronic, stable 2. Hyperlipdemia, likely to resume statin once cleared for diet. 3. GERD, continue Pantoprazole 40 mg IV daily and switch to PO when he can take PO again 4. Hx of Colon Cancer, CEA mildly elevated. CODE STATUS: reverted to Full Code diet: per surgery team dispo: per surgery team VTE Prophylaxis: Sub-Q Heparin (Unfractionated), SCDs VTE Mechanical Devices: Intermittant Pneumatic CD Resuscitation Status: DNR/DNI:Do Not Resuscitate/Intubate Time spent 35min Darrion Small MD Jun 28, 2016 12:05
[2016-06-28 12:20] LABS: APPEARANCE,URINE HAZY (CLEAR,HAZY); COLOR,URINE STRAW (YELLOW)
[2016-06-28 12:21] LABS: OCCULT BLOOD,URINE MODERATE (NEGATIVE); PH,URINE 6.5 (5.0-8.0); UROBILINOGEN,URINE NORMAL (NORMAL)
--- NOTE | 2016-06-28 15:09 | NUR ---
FLOR: SW attempted to call patient's NOK, but there was no answer. SW will continue to try and contact NOK. Ashley Montgomery LMSW, ACM
--- NOTE | 2016-06-28 17:16 | DRSVH ---
PROCEDURE: X-RAY CHEST ONE VIEW, PORTABLE ([id number]) INDICATIONS: tachypneic postop TECHNIQUE: One view of the chest was acquired. COMPARISON: [facility], CR, XR ABD ACUTE SERIES 3VW, 06/26/2016, 5:23. FINDINGS: Surgical changes and devices: Nasogastric tube tip traverses the GE junction. Right PICC present tip projected over the mid superior vena cava. Lungs and pleura: No pleural effusions or pneumothorax. Probable atelectasis within the mid left nicole ng Mediastinum: Mediastinal contours appear normal. Heart size is normal. Bones and chest wall: No suspicious bony lesions. Overlying soft tissues appear unremarkable. IMPRESSION: NG tube as above and probable atelectasis within the mid left lung but developing infiltr ate cannot entirely be excluded. Dictated by: Vahe Dior A Interpreted: Joaquina Calderón MD on 06/28/2016 at 17:04 Transcribed by: JENNIFER on 06/28/2016 at 17:05 Approved by: Joaquina Calderón MD, PhD on 06/28/2016 at 17:07
--- NOTE | 2016-06-28 18:14 | NUR ---
ACTIVITY/GI Patient got up to chair at bedside x2 today, 1 person assist with FWW. Able to take some steps. Tolerated out of bed activity much better than yesterday and felt better about it. Pain well controlled with MANAGER REVIEW dilaudid. NGT in place with minimal output. No air or stool in ostomy bag. Encourage frequent use of incentive spirometer. Can go for periods throughout the day without oxygen, but occasionally drops into high 80's and requires 1-2 LPM. Continue hourly rounding.
[2016-06-28] MEDS: Total Parenteral Nutrition 1 BAG IV SCH (21:57)
[2016-06-29] VITALS (8 sets, daily range): BP systolic 159–177; BP diastolic 70–75; PULSE 68–86; RESP 14–20; O2SAT 90–98
[2016-06-29] MEDS: 0.9% Sodium Chloride 1,000 ML IV SCH ×3 (00:39→19:38)
[2016-06-29] MEDS: Heparin 5,000 Unit/mL Inj SUBQ SCH ×3 (00:41→16:16)
[2016-06-29] MEDS: Piperacillin-Tazo 3.375 Gm Inj 3.375 GM in Dextrose 5% Minibag Plus 50 ML IV SCH ×3 (00:43→16:15)
[2016-06-29 05:36] LABS: BASOPHILS % (AUTO) 0.3 % (0-3); EOSINOPHILS % (AUTO) 1.1 % (0-5); MONOCYTES % (AUTO) 14.9 % (4-12); Mean Corpuscular Hemoglobin 29.7 pg (27.0-35.0); Mean Corpuscular Volume 90.2 fL (81-100); NEUTROPHILS % (AUTO) 55.5 % (40-74); Platelet Count 166 bil/L (150-400)
[2016-06-29 06:01] LABS: Magnesium 2.2 mg/dL (1.6-2.6); Phosphorus 2.4 mg/dL (2.5-4.9)
--- NOTE | 2016-06-29 06:36 | NUR ---
Mentation Pt. was confused at times last night. Asking inappropriate questions such as "are my engine parts over there?". Pt. does not reorient well. [place] bed alarm for safety. Pt. is declining oxygen at this time. Will continue to monitor.
[2016-06-29] MEDS: Pantoprazole 4 mg/mL 10 mL Inj IVPUSH SCH (08:19)
[2016-06-29] MEDS: TPN Per Pharmacist XX SCH (08:30)
--- NOTE | 2016-06-29 09:00 | NUR ---
NUTRITION FOLLOW-UP: ASSESS: Pt is a 75yo M admitted for partial SBO. He has been NPOx4 days. POD #3 following enterolysis and repair of small bowel enterotomy 2. Pt continues to not have bowel function and he continues to have NGT for suction. Per surgery note, it is possible his NGT may be removed soon. He continues on TPN and is tolerating well. Phos has improved today. Pharmacy is aware of TPN macronutrient recommendations. PMHX: Colon, Ca, HLD, GERD LABS: Reviewed. Glu 146, Ca 8.0, phos 2.4, alb 2.6 MEDS: Reviewed. GI: 0 stool via colostomy, NGT in place SKIN: Bird 16 NUTRITION SUPPORT: TPN- 180g Dex, 70g AA, 30g Lipids providing 1192kcal and 70g pro. CURRENT WTS: 85.9kg, BMI 29.7kg/m2, admit wt: 81.8kg (stated) DIET: NPO EST. NEEDS: Colon Ca, surgery Kcals: 2145-2575kcal/day (25-30kcal/kg) Pro: 100-130g/day (1.2-1.5g/kg) Fluid: 2145-2575ml/day (1ml/kcal/kg) NUTRITION DIAGNOSIS: 1.) Inadequate oral intake related to decreased ability to consume sufficient energy and altered GI function as evidenced by current NPO status and need for nutrition support due to decreased bowel function. --PERSISTS NUTRITION INTERVENTION: 1.) Will increase TPN to ~75% of estimated needs. Recommend 260g Dex, 100g AA and 45g lipids to provide 1735kcal and 100g pro (75% kcal needs, 100% pro needs). 2.) Continue to monitor labs closely. Once tolerated, recommend increase macronutrients to goal of 375g Dex, 125g AA and 55g lipids to provide 2325kcal and 125g pro (100% estimated needs) Dex load 3.0mg/kg/min MONITOR / EVAL: labs, TPN ana maria/advc, NPO, GI, wt, POC, nutrition status. Will continue to monitor per high nutrition risk guidelines Addendum: 06/30/16 at [address] TPN advanced to macronutrient goal today by pharmacy; will follow closely related to tolerance.
--- NOTE | 2016-06-29 10:10 | DRSVH ---
PROCEDURE: X-RAY ACUTE ABDOMINAL SERIES ([id number]) INDICATIONS: PSBO TECHNIQUE: One view chest and two views of the abdomen were acquired. COMPARISON: [facility], CR, XR ABD ACUTE SERIES 3VW, 06/26/2016, 5:23. FINDINGS: Surgical changes and devices: There is a right PICC, the tip of which is in the lower SVC. A pelvic d rain is present within the inferior pelvis. A colostomy is projected over the left iliac. Chest: Lungs are clear. Heart size is normal. No pleural effusions. No pneumoperitoneum. Abdomen: The previously visualized dilated loops of small bowel are no longer visualized. Scattered g as is present throughout the colon. No suspicious calcifications. Visualized solid organ contours ap pear normal. Bones: No suspicious bony lesions. IMPRESSION: Interval decrease in the size of the dilated small bowel loops suggesting resolving smal l bowel obstruction. Dictated by: Blanca Norwood M.D. on 06/29/2016 at 10:08 Approved by: Blanca Norwood M.D. on 06/29/2016 at 10:09
--- NOTE | 2016-06-29 11:17 | PCM.PHAPRO ---
Progress Date of Service: Jun 29, 2016 Abdominal Pain, Nausea with Vomiting TPN per pharmacy Indication: small bowel obstruction The macronutrients were increased per dietitian's recommendations as follows (75 % of est kcal needs): - Amino acids: 100 g - Dextrose: 260 g - Lipids: 45 g Labs: - Na: 140 - K: 3.9 - Cl: 105 - Ca (corrected): 9.12 - Phos: 2.4 - Ma.2 The following changes made to TPN (to hang tonight at 2100): - Phos levels have improved but remain low and potassium levels have dropped slightly -- increase KPhos to 40 mEq. TPN has been ordered as follows: 29-Jun-16 Standard Hang Time: 2100 Substrates Total kcal: 1734 AMINO ACIDS 100 g DEXTROSE 260 g Total Volume (mL): 1500 LIPIDS 45 g Sterile Water for Injection QS mL To Infuse Over (hrs): 24 Total Volume 1500 mL At at a rate of (mL/hr): 63 Additives Sodium Chloride 50 mEq "typical" daily requirements Sodium Acetate 20 mEq Sodium 50-120mEq Potassium Chloride 30 mEq Potassium 60-120mEq Potassium Phosphate 40 mEq Phosphate 20-40mEq Calcium Gluconate 11 mEq Magnesium 8-32mEq Magnesium Sulfate 12 mEq Calcium 9-22mEq Acetate* 80-120mEq Chloride* 80-120mEq Regular Insulin 0 units *Depending on acid-base status Famotidine 0 mg Multivitamins 1 std dose Insulin Regimen Trace Elements 1 std dose none Thiamine 100 mg Regular Low Intensity Subcut Folic Acid 1 mg Regular Medium Intensity Subcut Ascorbic Acid 0 mg Regular High Intensity Subcut Thank you, David Fu Pharmacist David Fu Jun 29, 2016 11:17
--- NOTE | 2016-06-29 11:38 | PCM.PNMED ---
Subjective Date of Service Jun 29, 2016 Subjective Patient that his breathing better today still has some mild cough with white sputum No fever overnight Exam Vital Signs Vital Sign - Last Date Time Temp Pulse Resp B/P Pulse Ox O2 Delivery O2 Flow Rate FiO2 06/29/16 05:52 16 90 06/29/16 05:13 36.8 86 177/72 Room Air 06/28/16 17:58 1.00 Intake and Output 06/28/16 06/28/16 06/29/16 Cumulative From/Thru 15:00 23:00 07:00 06/25/16 10:23 - 06/29/16 06:07 Intake Total 914 ml 529 ml 1653 ml 50408 ml Output Total 1285 ml 1350 ml 7195 ml Balance 914 ml -756 ml 303 ml 5269 ml Intake Oral 0 ml 0 ml 0 ml IV Total 568 ml 150 ml 1653 ml 08309 ml TPN/PPN 346 ml 379 ml 725 ml Output Urine Total 925 ml 1275 ml 6450 ml Stool Total 0 ml 0 ml Gastric Drainage Total 350 ml 50 ml 500 ml Drainage Total 10 ml 25 ml 245 ml Exam NAD, comfortably laying down on the bed no JVD, MMM, no LAD RRR, nl s1, s2 no mrg CTAB, no w,c S,tender, fresh scar with sterilely dressed, serosanguineous fluid in YOSELYN drain warm, no edema, pulses 2/2 IVs and Medications Medications Reviewed: Medications were reviewed in detail Lab and Diagnostics Result Diagram: 06/29/16 0500 06/29/16 0500 X-Rays, CTs and MRIs X-RAY ACUTE ABDOMINAL SERIES INDICATIONS: abdominal pain, multiple obstructions previously TECHNIQUE: One view chest and two views of the abdomen were acquired. COMPARISON: None. FINDINGS: Surgical changes and devices: None. Chest: Lungs are clear. Mild biapical pleural thickening. Pleural calcifications right lateral chest wall. Mild eventration right hemidiaphragm. Heart size is normal. No pleural effusions. No pneumoperitoneum. Abdomen: Bowel gas pattern shows multiple stairstep air fluid levels within mildly dilated small bowel consistent with partial obstruction. There is air and stool within the colon. No suspicious calcifications. Visualized solid organ contours appear normal. Vascular calcifications. Bones: No suspicious bony lesions. Compression fractures are present in T12, L1 and L4. IMPRESSION: 1. No acute cardiopulmonary abnormality. 2. Partial small bowel obstruction. 3. 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 Assessment & Plan Patient is a 75 year old male with a past medical history of Colon Cancer status post partial colectomy with colostomy placement, Hyperlipidemia, and GERD who is admitted to hospital for Partial Small Bowel Obstruction. acute, active #Partial Small Bowel Obstruction, POA, s/p surgery 06/26, -POD#3 postop management, pain control, diet per surgery team -titus management, if not indicated then will consider d/c to avoid infection risks. -O2 supplement as needed, aggressive use of incentive spirometer, encouraged with patient as long as pain is tolerable. #Sepsis with HR/fever/RR, labs showed bandemia, elevated procalcitonin, likely due to HCAP >48hrs from adm, developed post to operatively, -infectious w/u so far ngtd BCX 2sets, empirically started zosyn 06/28, continue for now, patient is clinically improving, procalcitonin trending down. -O2 supplement as needed -trends fever curve, wbc, procalcitonin daily #CKD2, POA, Cr wax and wane, seemed at baseline, will monitor for now, avoid renal toxin, adjust meds renally chronic, stable 2. Hyperlipdemia, likely to resume statin once cleared for diet. 3. GERD, gerson nue Pantoprazole 40 mg IV daily and switch to PO when he can take PO again 4. Hx of Colon Cancer, CEA mildly elevated. CODE STATUS: reverted to Full Code diet: per surgery team dispo: likely prolonged given new sepsis VTE Prophylaxis: Sub-Q Heparin (Unfractionated), SCDs VTE Mechanical Devices: Intermittant Pneumatic CD Resuscitation Status: DNR/DNI:Do Not Resuscitate/Intubate Time spent 35min Darrion Small MD Jun 29, 2016 11:38
--- NOTE | 2016-06-29 13:17 | PCM.PNSURG ---
Subjective Visit Information: Reason for Visit Partial Small Bowel Obstruction Surgery/Surgery Date Post-Op Day #3 Date of Admission: Jun 25, 2016 at 13:59 Hospital Day # Subjective: The patient removed his nasogastric tube last night. The patient and his are very concerned about his known history of hospital induced sundowning relating a bad experience that they had while he was hospitalized at [facility] where he became violent and required physical and chemical restraint. They are fearful that the nursing staff here is not well-informed and does not understand how to manage him. No flatus or stool via ostomy. Denies nausea or vomiting. Pain well controlled with SIGN LANGUAGE INTERPRETER. Out of bed to chair. Requesting ability to ambulate more. Postop General: Other (as above) Gastrointestinal: No N/V Pain Management: SIGN LANGUAGE INTERPRETER without Basal Postop Activity: Ambulating in Room Only Objective Vital Sign- Last 8 Hours Date Time Temp Pulse Resp B/P Pulse Ox O2 Delivery O2 Flow Rate FiO2 06/29/16 05:52 16 90 06/29/16 05:13 36.8 86 18 177/72 95 Room Air Intake and Output- Last 8 Hour 06/29/16 Cumulative From/Thru 06:59 06/25/16 10:23 - 06/29/16 06:07 Intake Total 1653 ml 05567 ml Output Total 1350 ml 7195 ml Balance 303 ml 5269 ml Intake Oral 0 ml 0 ml IV Total 1653 ml 88850 ml TPN/PPN 725 ml Output Urine Total 1275 ml 6450 ml Stool Total 0 ml 0 ml Gastric Drainage Total 50 ml 500 ml Drainage Total 25 ml 245 ml General: Alert, Cooperative, No Acute Distress Lungs: Clear to Auscultation Heart: Regular Rate/Rhythm, Murmur (grade 2/6 systolic murmur) Abdomen: Soft, Appropriately tender, Non-distended SURGICAL WOUND : Wound General Appearence: Milena, Intact, No Erythema, No Discharge Wound Drainage Type: YOSELYN Drain #1 (25 mL of serosanguineous output over the last 8 hours) Extremities: Thigh&Calf Soft/Nontender Neuro: Normal Speech Result Diagram: 06/29/16 0500 06/29/16 0500 Assessment & Plan Impression Primary diagnosis: Small bowel obstruction. POD # 3 following enterolysis and repair of small bowel enterotomy 2. No return of bowel function. Other diagnoses: 1. Colon Cancer, status post partial colectomy 2. Hyperlipidemia 3. GERD 4. Former cigarette smoker 5. History of hospital induced sundowning. Problems: Plan 1. Leave nasogastric tube out. 2. Cautiously advanced to clear liquids as tolerated. 3. Ambulate with assistance. 4. A discussion is held with the charge nurse and Dr. Small. Dr. Small will order medications to assist with sundowning this evening. The charge nurse has ordered a sitter to be with the patient overnight. She will also have a discussion with the nursing staff about this patient's sundowning. 5. Repeat labs in the morning. Pain Management: SIGN LANGUAGE INTERPRETER VTE Prophylaxis: Sub-Q Heparin (Unfractionated), SCDs Resuscitation Status: CPR: Attempt Resuscitation Tanvir Wilcox PA-C Jun 29, 2016 13:17
--- NOTE | 2016-06-29 16:46 | NUR ---
Evaluation completed. Please go to "Notes" then click on "Assessments and Notes" (bottom left corner of screen). Then select appropriate discipline tab on top of screen.
--- NOTE | 2016-06-29 19:03 | NUR ---
Behavior Pt. very pleasant and cooperative during day shift. He becomes forgetful at times, forgetting to use call light appropriately when he wants to get up. [place] bed alarm on, window open, close to nurses station. Ambulated in [place] with standby assist and front wheeled walker.
[2016-06-29] MEDS: Total Parenteral Nutrition 1 BAG IV SCH (21:00)
[2016-06-29] MEDS: HYDROmorphone PCA 0.2 mg/mL 30 mL Inj IV PRN (21:26)
[2016-06-30] VITALS (13 sets, daily range): BP systolic 157–193; BP diastolic 68–78; PULSE 76–96; RESP 12–20; O2SAT 93–97
[2016-06-30] MEDS: Piperacillin-Tazo 3.375 Gm Inj 3.375 GM in Dextrose 5% Minibag Plus 50 ML IV SCH ×3 (00:32→18:20)
[2016-06-30] MEDS: Heparin 5,000 Unit/mL Inj SUBQ SCH ×3 (00:32→18:20)
[2016-06-30 07:03] LABS: Magnesium 2.1 mg/dL (1.6-2.6); Phosphorus 3.5 mg/dL (2.5-4.9)
[2016-06-30 07:10] LABS: BASOPHILS % (AUTO) 0.2 % (0-3); EOSINOPHILS % (AUTO) 4.6 % (0-5); MONOCYTES % (AUTO) 14.3 % (4-12); Mean Corpuscular Hemoglobin 29.9 pg (27.0-35.0); Mean Corpuscular Volume 90.4 fL (81-100); NEUTROPHILS % (AUTO) 52.9 % (40-74); Platelet Count 186 bil/L (150-400)
--- NOTE | 2016-06-30 07:28 | NUR ---
Sundowner's/Elevated BP Patient experienced Sundowner's Syndrome during the shift. Patient was awake most of the night and frigidity with his PICC lines. Lights were turned on, turned down, and turned off. Patient did go to sleep around 0500. in room with patient. Sitter outside of room. Dr. Wiggins paiged as blood pressure spike to 191/72. Patient appears to be in no distress. No complaints of chest pain or anxiety. Patient not pressing PHARMACY TECHNICIAN PER DIEM pump. Encourage patient to use PHARMACY TECHNICIAN PER DIEM if warranted.
--- NOTE | 2016-06-30 07:49 | PCM.PHAPRO ---
Progress TPN Management: -Day 4 of TPN this evening -macronutrients will be advanced to goal tonight -minor adjustments made for electrolytes -will touch base with surgeon or hospitalist to inquire about additional fluids pt is receiving (NS at 100ml/hr) -formula for this evening: PARENTERAL NUTRITION ORDERS 4 30-Jun-16 Standard Hang Time: 2100 Substrates Total kcal: 2325 AMINO ACIDS 125 g DEXTROSE 375 g Total Volume (mL): 2200 LIPIDS 55 g Sterile Water for Injection QS mL To Infuse Over (hrs): 24 Total Volume 2200 mL At at a rate of (mL/hr): 92 Additives Sodium Chloride 50 mEq "typical" daily requirements Sodium Acetate 30 mEq Sodium 50-120mEq Potassium Chloride 50 mEq Potassium 60-120mEq Potassium Phosphate 20 mEq Phosphate 20-40mEq Calcium Gluconate 11 mEq Magnesium 8-32mEq Magnesium Sulfate 12 mEq Calcium 9-22mEq Acetate* 80-120mEq Chloride* 80-120mEq Regular Insulin 0 units *Depending on acid-base status Famotidine 0 mg Multivitamins 1 std dose Insulin Regimen Trace Elements 1 std dose none Thiamine 100 mg Regular Low Intensity Subcut Folic Acid 1 mg Regular Medium Intensity Subcut Ascorbic Acid 0 mg Regular High Intensity Subcut Regular Insulin Infusion Other: Gilma Whiting [facility] Jun 30, 2016 07:49
[2016-06-30] MEDS: TPN Per Pharmacist XX SCH (08:30)
[2016-06-30] MEDS: Pantoprazole 4 mg/mL 10 mL Inj IVPUSH SCH (09:29)
[2016-06-30] MEDS: Total Parenteral Nutrition 1 BAG IV SCH (10:15)
--- NOTE | 2016-06-30 10:40 | PCM.PNMED ---
Subjective Date of Service Jun 30, 2016 Subjective Patient was confused and delirious overnight, took seroqul 25mg denied SOB, cough, sputum, required less O2, 2liters NC Afebrile, white count is stable, Procalcitonin trending down Exam Vital Signs Vital Sign - Last Date Time Temp Pulse Resp B/P Pulse Ox O2 Delivery O2 Flow Rate FiO2 06/30/16 10:04 36.9 83 15 160/78 94 Nasal Cannula 2.00 Intake and Output 06/29/16 06/29/16 06/30/16 Cumulative From/Thru 15:00 23:00 07:00 06/25/16 10:23 - 06/30/16 06:34 Intake Total 1555 ml 974 ml 04135 ml Output Total 1210 ml 1860 ml 49099 ml Balance 345 ml -886 ml 4728 ml Intake Oral 300 ml 0 ml 300 ml IV Total 661 ml 576 ml 83114 ml TPN/PPN 594 ml 398 ml 1717 ml Output Urine Total 1200 ml 1850 ml 9500 ml Stool Total 0 ml Gastric Drainage Total 500 ml Drainage Total 10 ml 10 ml 265 ml Lab and Diagnostics Result Diagram: 06/30/16 0550 06/30/16 0550 X-Rays, CTs and MRIs X-RAY ACUTE ABDOMINAL SERIES INDICATIONS: abdominal pain, multiple obstructions previously TECHNIQUE: One view chest and two views of the abdomen were acquired. COMPARISON: None. FINDINGS: Surgical changes and devices: None. Chest: Lungs are clear. Mild biapical pleural thickening. Pleural calcifications right lateral chest wall. Mild eventration right hemidiaphragm. Heart size is normal. No pleural effusions. No pneumoperitoneum. Abdomen: Bowel gas pattern shows multiple stairstep air fluid levels within mildly dilated small bowel consistent with partial obstruction. There is air and stool within the colon. No suspicious calcifications. Visualized solid organ contours appear normal. Vascular calcifications. Bones: No suspicious bony lesions. Compression fractures are present in T12, L1 and L4. IMPRESSION: 1. No acute cardiopulmonary abnormality. 2. Partial small bowel obstruction. 3. 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 Assessment & Plan Patient is a 75 year old male with a past medical history of Colon Cancer status post partial colectomy with colostomy placement, Hyperlipidemia, and GERD who is admitted to hospital for Partial Small Bowel Obstruction. acute, active #Partial Small Bowel Obstruction, POA, s/p surgery 06/26, -POD#4 postop management, pain control, diet per surgery team -titus management, if not indicated then will consider d/c to avoid infection risks. -O2 supplement as needed, aggressive use of incentive spirometer, encouraged with patient as long as pain is tolerable. #Sepsis with HR/fever/RR, labs showed bandemia, elevated procalcitonin, likely due to HCAP >48hrs from adm, developed post to operatively, -infectious w/u so far ngtd BCX 2sets, empirically started zosyn 06/28, patient is clinically improving, procalcitonin further trending down. continue zosyn for now until pt more stable. -O2 supplement as needed -trends fever curve, wbc, procalcitonin daily #CKD2, POA, Cr wax and wane, seemed at baseline, will monitor for now, avoid renal toxin, adjust meds renally #acute hospital delirium, developed since adm, in the setting sepsis, postop, age, underlying cognitive dysfunction, opioid. -Seroquel 25mg qhs prn, 1:1 observation as needed, aggressive reorientation, family at the beside, enough sun exposure during the day chronic, stable 2. Hyperlipdemia, likely to resume statin once cleared for diet. 3. GERD, gerson nue Pantoprazole 40 mg IV daily and switch to PO when he can take PO again 4. Hx of Colon Cancer, CEA mildly elevated. CODE STATUS: reverted to Full Code diet: per surgery team dispo: likely prolonged given new isepsis, >3more days VTE Prophylaxis: Sub-Q Heparin (Unfractionated), SCDs VTE Mechanical Devices: Intermittant Pneumatic CD Resuscitation Status: CPR: Attempt Resuscitation Darrion Small MD Jun 30, 2016 10:40
--- NOTE | 2016-06-30 11:37 | NUR ---
FLOR signed. Sonia Vance MEDICAL OFFICE REPRESENTATIVE
--- NOTE | 2016-06-30 13:01 | PROG NOTE ---
[address] [address] PROGRESS NOTE PATIENT: AKASH KIMBALL : 1940 MR#: [id number] ADMIT: 06/25/2016 JOB ID: [id number] DATE: 06/30/2016 Postop day four from extensive lysis of adhesions with repair of enterotomy x2. Not unexpectedly, patient is still not passing any gas through his colostomy bag. He has done well with his NG tube out. His abdomen is minimally distended. His incision is without signs of infection. His lab shows that his white count is 4.5. The left shift has resolved. Hematocrit is 30. Chemistries are normal. Albumin is 3. Procalcitonin is down to 2.39. IMPRESSION AND PLAN: He is doing well. Given the extensive lysis of adhesions, the preoperative length of obstruction and enterotomy repairs, I am going to back off on his diet and keep him n.p.o. except for sips and meds until we start seeing some sign of flatus in his colostomy bag.
--- NOTE | 2016-06-30 14:00 | NUR ---
Social Work- Continued D/C Planning Data: EMR reviewed. Pt is on day 5 of hospitalization for partial small bowel obstruction per H&P. Pt is POD 3. Pt has PICC line and NG tube in place. Pt has colostomy which he manages at home. Per RN notes, pt has been up independent in his room. Pt states his will provide transport home. No anticipated discharge needs. SW will continue to follow if needs arise. Assessment:Pt who is independent at baseline. Plan: Pt to discharge home when medically stable via POV. No anticipated discharge needs. SW will continue to follow if needs arise. Sonia Vance MSW
--- NOTE | 2016-06-30 19:47 | NUR ---
Activity Pt up to chair most of shift, walked a half loop in lech[place] with RN. Cayla d/c'd, pt voiding without difficulty. Pain tolerable with SENIOR STAFF ACCOUNTANT Dilaudid.
[2016-07-01] VITALS (13 sets, daily range): BP systolic 93–172; BP diastolic 63–74; PULSE 74–88; RESP 16–18; O2SAT 95–99
[2016-07-01] MEDS: Piperacillin-Tazo 3.375 Gm Inj 3.375 GM in Dextrose 5% Minibag Plus 50 ML IV SCH ×3 (00:44→17:14)
[2016-07-01] MEDS: Heparin 5,000 Unit/mL Inj SUBQ SCH ×3 (00:45→17:13)
[2016-07-01 07:16] LABS: BASOPHILS % (AUTO) 0.5 % (0-3); MONOCYTES % (AUTO) 15.7 % (4-12); Mean Corpuscular Hemoglobin 29.8 pg (27.0-35.0); Mean Corpuscular Volume 90.7 fL (81-100); NEUTROPHILS % (AUTO) 56.6 % (40-74); Platelet Count 206 bil/L (150-400)
--- NOTE | 2016-07-01 07:23 | NUR ---
Mentation/Activity Pt rested well this shift and did not have any behavioral issues. He was very cooperative with care while sitter in place. The pt was able to transfer from bed to chair without c/o shortness of breath. care ongoing.
[2016-07-01 07:49] LABS: Magnesium 2.1 mg/dL (1.6-2.6); Phosphorus 4.3 mg/dL (2.5-4.9)
[2016-07-01] MEDS: Pantoprazole 4 mg/mL 10 mL Inj IVPUSH SCH (08:02)
[2016-07-01] MEDS: TPN Per Pharmacist XX SCH (08:30)
--- NOTE | 2016-07-01 12:59 | PCM.PNMED ---
Subjective Date of Service Jul 01, 2016 Subjective pt didn't have delirium episode, breathing good, no cough/sputum/SOB still on MANUFACTURING CHIEF ENGINEER, TPN, no gas/stools c/o burning on urination after titus d/sarah, voiding okay. Exam Vital Signs Vital Sign - Last Date Time Temp Pulse Resp B/P Pulse Ox O2 Delivery O2 Flow Rate FiO2 07/01/16 10:34 36.6 118/69 07/01/16 09:44 18 96 Nasal Cannula 2.00 07/01/16 04:50 75 Intake and Output 06/30/16 06/30/16 07/01/16 Cumulative From/Thru 15:00 23:00 07:00 06/25/16 10:23 - 07/01/16 06:25 Intake Total 1265 ml 1225 ml 72889 ml Output Total 2300 ml 950 ml 02304 ml Balance -1035 ml 275 ml 3968 ml Intake Oral 240 ml 150 ml 690 ml IV Total 310 ml 225 ml 85883 ml TPN/PPN 715 ml 850 ml 3282 ml Output Urine Total 2300 ml 950 ml 02438 ml Stool Total 0 ml 0 ml Gastric Drainage Total 500 ml Drainage Total 0 ml 265 ml # Voids 4 4 Exam NAD, comfortably laying down on the bed no JVD, MMM, no LAD RRR, nl s1, s2 no mrg CTAB, no w,c, S,tender,sterilely dressed, no CVAT/suprapubic td warm, no edema, pulses 2/2 IVs and Medications Medications Reviewed: Medications were reviewed in detail Lab and Diagnostics Result Diagram: 07/01/16 0635 07/01/16 0635 X-Rays, CTs and MRIs X-RAY ACUTE ABDOMINAL SERIES INDICATIONS: abdominal pain, multiple obstructions previously TECHNIQUE: One view chest and two views of the abdomen were acquired. COMPARISON: None. FINDINGS: Surgical changes and devices: None. Chest: Lungs are clear. Mild biapical pleural thickening. Pleural calcifications right lateral chest wall. Mild eventration right hemidiaphragm. Heart size is normal. No pleural effusions. No pneumoperitoneum. Abdomen: Bowel gas pattern shows multiple stairstep air fluid levels within mildly dilated small bowel consistent with partial obstruction. There is air and stool within the colon. No suspicious calcifications. Visualized solid organ contours appear normal. Vascular calcifications. Bones: No suspicious bony lesions. Compression fractures are present in T12, L1 and L4. IMPRESSION: 1. No acute cardiopulmonary abnormality. 2. Partial small bowel obstruction. 3. 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 Assessment & Plan Patient is a 75 year old male with a past medical history of Colon Cancer status post partial colectomy with colostomy placement, Hyperlipidemia, and GERD who is admitted to hospital for Partial Small Bowel Obstruction. acute, active #Partial Small Bowel Obstruction, POA, s/p surgery 06/26, -POD#4 postop management, pain control, diet per surgery team -O2 supplement as needed, aggressive use of incentive spirometer, encouraged with patient as long as pain is tolerable. #Sepsis with HR/fever/RR, labs showed bandemia, elevated procalcitonin, likely due to HCAP >48hrs from adm, developed post to operatively, -infectious w/u so far ngtd BCX 2sets, empirically started zosyn 06/28, patient is clinically improving, procalcitonin further trending down. continue zosyn for now until pt more stable. -O2 supplement as needed -trends fever curve, wbc, procalcitonin daily --titus d/sarah 06/30, will send UA given dysuria. #CKD2, POA, Cr wax and wane, seemed at baseline, will monitor for now, avoid renal toxin, adjust meds renally #acute hospital delirium, developed since adm, in the setting sepsis, postop, age, underlying cognitive dysfunction, opioid. -Seroquel 25mg qhs prn, 1:1 observation as needed, aggressive reorientation, family at the beside, enough sun exposure during the day chronic, stable 2. Hyperlipdemia, likely to resume statin once cleared for diet. 3. GERD, gerson nue Pantoprazole 40 mg IV daily and switch to PO when he can take PO again 4. Hx of Colon Cancer, CEA mildly elevated. CODE STATUS: reverted to Full Code diet: per surgery team dispo: likely prolonged given new isepsis, 2-3more days VTE Prophylaxis: Sub-Q Heparin (Unfractionated), SCDs VTE Mechanical Devices: Intermittant Pneumatic CD Resuscitation Status: CPR: Attempt Resuscitation Time spent 35min Darrion Small MD Jul 01, 2016 12:59
[2016-07-01 13:52] LABS: APPEARANCE,URINE CLEAR (CLEAR,HAZY); COLOR,URINE YELLOW (YELLOW); OCCULT BLOOD,URINE TRACE (NEGATIVE); UROBILINOGEN,URINE NORMAL (NORMAL)
--- NOTE | 2016-07-01 16:34 | PROG NOTE ---
[address] [address] PROGRESS NOTE PATIENT: AKASH KIMBALL : 1940 MR#: [id number] ADMIT: 06/25/2016 JOB ID: [id number] DATE: He is postop day five. He is afebrile, stable vital signs yet ostomy is still not putting out any gas. He did tolerate sips, has had no vomiting. He is now on day four of his IV antibiotics for presumptive pneumonia. His abdomen is soft, quiet but present bowel tones. LABORATORY DATA: Show white count of 6.2, without left shift. Hematocrit stable at 30.1. Procalcitonin continues to decrease to 1.43. IMPRESSION AND PLAN: I think he is doing well and, at this point, I would keep him n.p.o. except for sips until he has evidence of return of bowel function through flatus. Until then, TPN continues.
--- NOTE | 2016-07-01 17:18 | NUR ---
Pain/Activity Pt rates pain 9/10 but states that the CARPENTER CRADLE AND DOLLY Dilaudid is controlling his pain. Educated pt on use of the button and he states that he knows to use the button. Will continue to monitor his pain. Pt continues to get up and oob to use the urinal. 1 PA FWW. Tolerates activity well. Will encourage pt to get oob for dinner. Family continues to be at bedside and aide alarm is on for safety. Care continues.
[2016-07-01] MEDS: Total Parenteral Nutrition 1 BAG IV SCH (21:25)
[2016-07-02] VITALS (13 sets, daily range): BP systolic 132–157; BP diastolic 68–87; PULSE 75–81; RESP 16–20; O2SAT 94–99
[2016-07-02] MEDS: Piperacillin-Tazo 3.375 Gm Inj 3.375 GM in Dextrose 5% Minibag Plus 50 ML IV SCH ×3 (00:44→16:54)
[2016-07-02] MEDS: Heparin 5,000 Unit/mL Inj SUBQ SCH ×3 (00:44→16:54)
--- NOTE | 2016-07-02 04:41 | NUR ---
Activity/mentation Pt alert and oriented x3 with the ability to make his needs known to staff regarding care. No behavioral issues observed while sitter at bedside. Pt pleasant and friendly. Pt up sitting in the chair at this time and often ambulates to the bathroom to urinate in the urinal per choice. Pt seems to tolerate the activity well. care ongoing.
[2016-07-02 05:21] LABS: BASOPHILS % (AUTO) 0.6 % (0-3); EOSINOPHILS % (AUTO) 2.2 % (0-5); MONOCYTES % (AUTO) 15.3 % (4-12); Mean Corpuscular Hemoglobin 31.4 pg (27.0-35.0); Mean Corpuscular Volume 101.3 fL (81-100); NEUTROPHILS % (AUTO) 59.1 % (40-74); Platelet Count 203 bil/L (150-400)
[2016-07-02] MEDS: Pantoprazole 4 mg/mL 10 mL Inj IVPUSH SCH (07:45)
[2016-07-02] MEDS: TPN Per Pharmacist XX SCH (07:46)
[2016-07-02 08:51] LABS: Phosphorus 2.7 mg/dL (2.5-4.9)
--- NOTE | 2016-07-02 10:19 | PCM.PNMED ---
Subjective Date of Service Jul 02, 2016 Subjective no delirium overnight no passing gas, stools yet BP trends better 150s Exam Vital Signs Vital Sign - Last Date Time Temp Pulse Resp B/P Pulse Ox O2 Delivery O2 Flow Rate FiO2 07/02/16 07:59 Supplement Oxygen 07/02/16 07:59 18 99 07/02/16 05:08 37.2 80 155/70 2.00 Intake and Output 07/01/16 07/01/16 07/02/16 Cumulative From/Thru 15:00 23:00 07:00 06/25/16 10:23 - 07/02/16 06:38 Intake Total 1076 ml 2344 ml 13092 ml Output Total 850 ml 1100 ml 08209 ml Balance 226 ml 1244 ml 5438 ml Intake Oral 0 ml 50 ml 740 ml IV Total 1076 ml 300 ml 95009 ml TPN/PPN 1994 ml 5276 ml Output Urine Total 850 ml 1100 ml 09645 ml Stool Total 0 ml 0 ml Gastric Drainage Total 500 ml Drainage Total 0 ml 265 ml # Voids 11 15 Exam NAD, comfortably laying down on the bed no JVD, MMM, no LAD RRR, nl s1, s2 no mrg CTAB, no w,c, S,tender,sterilely dressed, no CVAT/suprapubic td warm, no edema, pulses 2/2 IVs and Medications Medications Reviewed: Medications were reviewed in detail Lab and Diagnostics Result Diagram: 07/02/16 0500 07/02/16 0750 X-Rays, CTs and MRIs X-RAY ACUTE ABDOMINAL SERIES INDICATIONS: abdominal pain, multiple obstructions previously TECHNIQUE: One view chest and two views of the abdomen were acquired. COMPARISON: None. FINDINGS: Surgical changes and devices: None. Chest: Lungs are clear. Mild biapical pleural thickening. Pleural calcifications right lateral chest wall. Mild eventration right hemidiaphragm. Heart size is normal. No pleural effusions. No pneumoperitoneum. Abdomen: Bowel gas pattern shows multiple stairstep air fluid levels within mildly dilated small bowel consistent with partial obstruction. There is air and stool within the colon. No suspicious calcifications. Visualized solid organ contours appear normal. Vascular calcifications. Bones: No suspicious bony lesions. Compression fractures are present in T12, L1 and L4. IMPRESSION: 1. No acute cardiopulmonary abnormality. 2. Partial small bowel obstruction. 3. 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 Assessment & Plan Patient is a 75 year old male with a past medical history of Colon Cancer status post partial colectomy with colostomy placement, Hyperlipidemia, and GERD who is admitted to hospital for Partial Small Bowel Obstruction. acute, active #Partial Small Bowel Obstruction, POA, s/p surgery 06/26, -POD#5 postop management, pain control, diet per surgery team, no sig improvement today AM. -O2 supplement as needed, aggressive use of incentive spirometer, encouraged with patient as long as pain is tolerable. #Sepsis with HR/fever/RR, labs showed bandemia, elevated procalcitonin, likely due to HCAP >48hrs from adm, developed post to operatively, -infectious w/u so far ngtd BCX 2sets, empirically started zosyn 06/28, patient is clinically improving, procalcitonin further trending down. continue zosyn for now until pt more stable. -O2 supplement as needed -trends fever curve, wbc, procalcitonin daily --titus d/sarah 06/30, UA unremarkable #CKD2, POA, Cr wax and wane, seemed at baseline, will monitor for now, avoid renal toxin, adjust meds renally #acute hospital delirium, developed since adm, in the setting sepsis, postop, age, underlying cognitive dysfunction, opioid. -Seroquel 25mg qhs prn, 1:1 observation as needed, aggressive reorientation, family at the beside, enough sun exposure during the day chronic, stable 2. Hyperlipdemia, likely to resume statin once cleared for diet. 3. GERD, continue Pantoprazole 40 mg IV daily and switch to PO when he can take PO again 4. Hx of Colon Cancer, CEA mildly elevated. CODE STATUS: reverted to Full Code diet: per surgery team dispo: likely prolonged given new sepsis, slow surgical progress, 2-3more days VTE Prophylaxis: Sub-Q Heparin (Unfractionated), SCDs VTE Mechanical Devices: Intermittant Pneumatic CD Resuscitation Status: CPR: Attempt Resuscitation Time spent 35min Darrion Small MD Jul 02, 2016 10:11
[2016-07-02] MEDS: HYDROmorphone PCA 0.2 mg/mL 30 mL Inj IV PRN (10:52)
--- NOTE | 2016-07-02 11:03 | PCM.PHAPRO ---
Progress TPN per pharmacy A: -Phos has dropped from 4.3 to 2.7, so will add back into the TPN tonight - Na has also decreased, so will increase for tonight PARENTERAL NUTRITION ORDERS 6 02-Jul-16 Standard Hang Time: 2100 Substrates Total kcal: 2325 AMINO ACIDS 125 g DEXTROSE 375 g Total Volume (mL): 2200 LIPIDS 55 g Sterile Water for Injection QS mL To Infuse Over (hrs): 24 Total Volume 2200 mL At at a rate of (mL/hr): 92 Additives Sodium Chloride 90 mEq "typical" daily requirements Sodium Acetate 30 mEq Sodium 50-120mEq Potassium Chloride 60 mEq Potassium 60-120mEq Potassium Phosphate 20 mEq Phosphate 20-40mEq Calcium Gluconate 8 mEq Magnesium 8-32mEq Magnesium Sulfate 12 mEq Calcium 9-22mEq Acetate* 80-120mEq Chloride* 80-120mEq Regular Insulin 0 units *Depending on acid-base status Famotidine 0 mg Multivitamins 1 std dose Insulin Regimen Trace Elements 1 std dose none Thiamine 100 mg Regular Low Intensity Subcut Folic Acid 1 mg Regular Medium Intensity Subcut Ascorbic Acid 0 mg Regular High Intensity Subcut Regular Insulin Infusion Other: Special Instructions: To be infused via central line only. For delay or inturruption of TPN contact the pharmacist for alternative replacement solution. Signature Date: Pérez [address]ipp[address] [facility] Pharmacy will continue to monitor, thanks! Lavonne Lopze PharmD Jul 02, 2016 11:03
--- NOTE | 2016-07-02 14:32 | PCM.PNSURG ---
Subjective Date of Service: Jul 02, 2016 Visit Information: Reason for Visit Partial Small Bowel Obstruction Surgery/Surgery Date Post-Op Day #6 Date of Admission: Jun 25, 2016 at 13:59 Hospital Day # Subjective: Formed stool and flatus in the ostomy appliance. No nausea or vomiting. Pain well controlled with GUN NUMBERER. Ambulatory in the room. Voiding with some dysuria since Kulkarni removed, UA unremarkable. states sundowning symptoms greatly improved. Postop General: No Complaints Gastrointestinal: Good Appetite, No N/V, Passing Stool (via ostomy) Pain Management: GUN NUMBERER without Basal Postop Activity: Ambulating in Room Only Objective Vital Sign- Last 8 Hours Date Time Temp Pulse Resp B/P Pulse Ox O2 Delivery O2 Flow Rate FiO2 07/02/16 12:34 16 96 07/02/16 10:54 18 98 07/02/16 10:20 18 96 07/02/16 07:59 Supplement Oxygen 07/02/16 07:59 18 99 Intake and Output- Last 8 Hour 07/02/16 Cumulative From/Thru 07:00 06/25/16 10:23 - 07/02/16 06:38 Intake Total 2344 ml 95293 ml Output Total 1100 ml 44010 ml Balance 1244 ml 5438 ml Intake Oral 50 ml 740 ml IV Total 300 ml 39608 ml TPN/PPN 1994 ml 5276 ml Output Urine Total 1100 ml 85411 ml Stool Total 0 ml 0 ml Gastric Drainage Total 500 ml Drainage Total 0 ml 265 ml # Voids 11 15 General: Alert, Cooperative, No Acute Distress Lungs: Clear to Auscultation Heart: Regular Rate/Rhythm, Murmur (grade 2/6 systolic murmur) Abdomen: Soft, Appropriately tender, Non-distended, Ostomy pink & viable (with formed stool and flatus in the bag) SURGICAL WOUND : Wound General Appearence: [place], Intact, No Erythema, No Discharge Wound Drainage Type: YOSELYN Drain #1 (negligible serosanguineous drainage) Extremities: Thigh&Calf Soft/Nontender Neuro: Normal Speech Catheters: None Result Diagram: 07/02/16 0500 07/02/16 0750 Assessment & Plan Impression Primary diagnosis: 1. Small bowel obstruction. POD # 6 following enterolysis and repair of small bowel enterotomy 2 with return of bowel function. 2. Severe sepsis, resolved 3. Acute hospital delirium, well-managed on Seroquel. Other diagnoses: 1. Colon Cancer, status post partial colectomy 2. Hyperlipidemia 3. GERD 4. Former cigarette smoker 5. History of hospital induced sundowning. 6. Chronic kidney disease Problems: Plan Cautiously advance to clear liquid diet. Pain Management: GUN NUMBERER VTE Prophylaxis: Sub-Q Heparin (Unfractionated), SCDs Resuscitation Status: CPR: Attempt Resuscitation Tanvir Wilcox PA-C Jul 02, 2016 14:32
--- NOTE | 2016-07-02 16:14 | NUR ---
NUTRITION FOLLOW-UP: ASSESS: 75 yo M admitted for partial SBO, POD #6 following enterolysis and repair of small bowel enterotomy 2. Pt is starting to have some return of bowel function as pt with some stool and flatus in the ostomy bag. He continues on TPN and appears to be tolerating TPN well. Diet has been cautiously advanced to clear liquids per surgery today. PMHX: Colon, Ca, HLD, GERD LABS: Reviewed. BUN 31, Cr 1.29, Glu 143, Alb 3.2. MEDS: Reviewed. GI: + stool and flatus via colostomy (07/02) NUTRITION SUPPORT: TPN- 375 g Dex, 125 g AA, 55 g Lipids providing 2325 kcal and 125 g pro. CURRENT WTS: 81.06 kg, BMI 29.7 kg/m2, admit wt: 81.8 kg (stated) DIET: Clear Liquids EST. NEEDS: Colon Ca Kcals: 2012-4502 kcal/day (25-30 kcal/kg) Pro: 100-130 g/day (1.2-1.5 g/kg) Fluid: 3320-7478 ml/day (1 ml/kcal/kg) NUTRITION DIAGNOSIS: 1.) Inadequate oral intake related to decreased ability to consume sufficient energy and altered GI function as evidenced by current NPO status and need for nutrition support due to decreased bowel function. --PERSISTS NUTRITION INTERVENTION: 1.) Continue current TPN at this time. 2.) Continue to advance diet as able per surgery recommendations. 3.) Once pt is able to tolerate 50-75% of at least a full liquid diet consistently, recommend tapering TPN. MONITOR / EVAL: TPN tolerance, diet advancement / tolerance, labs, GI status, wt, nutrition status. Will continue to monitor per high nutrition risk guidelines.
--- NOTE | 2016-07-02 17:43 | NUR ---
Pain Management/BM/Activity Patient manages pain with WIND TURBINE PERFORMANCE ENGINEER ..2. Patient wants to switch to PO pain medications, just started on Clears for Supper. Patient denies nausea this shift. Bowel function returned this shift in colostomy. Diet advanced to Clears with cautions per Tanvir Wilcox. Patient ambulated in [place] x3 with no complaints. Call light and tray table within reach. Will continue to monitor patient hourly.
[2016-07-02] MEDS: Total Parenteral Nutrition 1 BAG IV SCH (21:43)
[2016-07-03] VITALS (7 sets, daily range): BP systolic 135–154; BP diastolic 60–65; PULSE 75–80; RESP 14–20; O2SAT 94–99
[2016-07-03] MEDS: Heparin 5,000 Unit/mL Inj SUBQ SCH ×3 (01:00→16:02)
[2016-07-03] MEDS: Piperacillin-Tazo 3.375 Gm Inj 3.375 GM in Dextrose 5% Minibag Plus 50 ML IV SCH ×3 (01:00→16:00)
--- NOTE | 2016-07-03 06:35 | NUR ---
Activity Patient had no episodes of confusing behavior or Sundowner's syndrome during shift. Patient rested comfortably and used FORM GRADER for pain control. Patient was cooperative in his care. VSS. Call light within reach. Care continues.
[2016-07-03] MEDS: Pantoprazole 4 mg/mL 10 mL Inj IVPUSH SCH (08:00)
[2016-07-03 08:23] LABS: BASOPHILS % (AUTO) 0.5 % (0-3); EOSINOPHILS % (AUTO) 4.7 % (0-5); MONOCYTES % (AUTO) 13.6 % (4-12); Mean Corpuscular Hemoglobin 30.1 pg (27.0-35.0); Mean Corpuscular Volume 92.4 fL (81-100); NEUTROPHILS % (AUTO) 56.3 % (40-74); Platelet Count 210 bil/L (150-400)
[2016-07-03] MEDS ORDERED: HYDROcodone-APAP 5-325 mg Tablet PO PRN (08:25)
[2016-07-03] MEDS: TPN Per Pharmacist XX SCH (08:30)
[2016-07-03 09:07] LABS: Magnesium 2.3 mg/dL (1.6-2.6)
[2016-07-03] MEDS: 0.9% Sodium Chloride 1,000 ML IV SCH (09:30)
--- NOTE | 2016-07-03 09:39 | PCM.PNSURG ---
Subjective Date of Service: Jul 03, 2016 Visit Information: Reason for Visit: Small Bowel Obstruction Surgery/Surgery Date: Laparoscopic lysis of adhesions, converted to open lysis of adhesions, repair of small bowel enterotomy x2/ Jun 26, 2016. Post-Op Day #7 Date of Admission: Jun 25, 2016 at 13:59 Hospital Day #8 Subjective: Pt is doing well, sitting up in the chair preparing for breakfast and appears in good spirits. Pain is well controlled. He reports having a poor appetite but is tolerating clear liquids with good output per ostomy. He endorses abdominal tenderness but denies abdominal pain, cramping, nausea or vomiting. He has been ambulating in the hallway but becomes fatigued rather quickly. No fever, chills , chest pain or shortness of breath. Pt reportedly with sundowning symptoms,tx w / Seroquel. He appears alert and oriented and is communicating appropriately this morning. . Postop General: No Complaints Gastrointestinal: Tolerating Oral Feedings, Passing Stool (via ostomy ) Pain Management: PO Postop Activity: Ambulating in [place] Objective Vital Sign- Last 8 Hours Date Time Temp Pulse Resp B/P Pulse Ox O2 Delivery O2 Flow Rate FiO2 07/03/16 08:11 Supplement Oxygen 07/03/16 08:11 18 97 07/03/16 06:30 14 98 07/03/16 05:16 36.2 75 16 135/60 99 Nasal Cannula 2.00 07/03/16 04:43 14 94 Intake and Output- Last 8 Hour 07/03/16 Cumulative From/Thru 07:00 06/25/16 10:23 - 07/03/16 06:30 Intake Total 1447 ml 83012 ml Output Total 950 ml 10191 ml Balance 497 ml 6442 ml Intake Oral 50 ml 960 ml IV Total 237 ml 81412 ml TPN/PPN 1160 ml 7520 ml Output Urine Total 925 ml 99143 ml Stool Total 0 ml 100 ml Gastric Drainage Total 500 ml Drainage Total 25 ml 320 ml # Voids 15 General: Alert, Oriented X3 Abdomen: Soft, Non-distended, Ostomy (recently emptied, stool reportedly appears nml), Ostomy pink & viable Extremities: Warm Neuro: Grossly Neurologically Intact Result Diagram: 07/03/16 0740 07/03/16 0740 Assessment & Plan Impression 75y/o male w/ PMHx of colon cancer s/p partial colectomy and multiple bowel obstructions which have required surgery who presented to the ED c/o abd pain, N /V and subsequently admitted for partial small bowel obstruction. Now post- operative day #7 following open lysis of adhesions and repair of small bowel enterotomy x2 with return of normal bowel function. Pt tolerating clear liquid diet w/nml stool per ostomy and passing flatus, no abd pain/cramping/nausea or vomiting. Pt remains on TPN as diet was advanced to clear liquid just yesterday. He remains on SUPERCHARGER MECHANIC but reports good pain control with minimal usage of SUPERCHARGER MECHANIC. Problems: Plan -Advance to full liquid diet today. If pt tolerates and is taking adequate nutrition PO, will stop TPN and advance diet as tolerated. -Continue routine ostomy maintenance and monitor ostomy output. -Stop SUPERCHARGER MECHANIC, transition to oral pain medication w/IV morphine for breakthrough -Anticipate discharge in next 2-3days, pending advancement of diet and nutritional status. -Encouraged spirometry and ambulation. . VTE Prophylaxis: Sub-Q Heparin (Unfractionated), SCDs Resuscitation Status: CPR: Attempt Resuscitation Attending Statement: I agree with Dr. Fisher's assessment and plan. Francisca Fisher DO Jul 03, 2016 09:21 Zaid Conn MD Jul 05, 2016 14:14
--- NOTE | 2016-07-03 10:59 | PCM.PHAPRO ---
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 PARENTERAL NUTRITION ORDERS 7 03-Jul-16 Standard Hang Time: 2100 Substrates Total kcal: 2325 AMINO ACIDS 125 g DEXTROSE 375 g Total Volume (mL): 2200 LIPIDS 55 g Sterile Water for Injection QS mL To Infuse Over (hrs): 24 Total Volume 2200 mL At at a rate of (mL/hr): 92 Additives Sodium Chloride 90 mEq "typical" daily requirements Sodium Acetate 30 mEq Sodium 50-120mEq Potassium Chloride 60 mEq Potassium 60-120mEq Potassium Phosphate 20 mEq Phosphate 20-40mEq Calcium Gluconate 8 mEq Magnesium 8-32mEq Magnesium Sulfate 12 mEq Calcium 9-22mEq ~ ~ ~ Acetate* 80-120mEq ~ ~ ~ Chloride* 80-120mEq Regular Insulin 0 units *Depending on acid-base status Famotidine 0 mg Multivitamins 1 std dose Insulin Regimen Trace Elements 1 std dose none ~ Thiamine 100 mg Regular Low Intensity Subcut ~ Folic Acid 1 mg Regular Medium Intensity Subcut ~ Ascorbic Acid 0 mg Regular High Intensity Subcut ~ ~ ~ ~ Regular Insulin Infusion ~ ~ ~ ~ Other: ~ ~ ~ ~ ~ ~ Pharmacy appreciates consult and will continue to monitor. THANKS! Annalisa Gilliam PharmD Jul 03, 2016 10:59
--- NOTE | 2016-07-03 14:33 | PCM.PNMED ---
Subjective Date of Service Jul 03, 2016 Subjective pt is clinically stable, no delirium overnight denied pain, n,v kidney function mildly worsened, IVF resumed liquid diet started per surgery Exam Vital Signs Vital Sign - Last Date Time Temp Pulse Resp B/P Pulse Ox O2 Delivery O2 Flow Rate FiO2 07/03/16 13:55 36.9 80 16 150/64 96 Room Air 07/03/16 05:16 2.00 Intake and Output 07/02/16 07/02/16 07/03/16 Cumulative From/Thru 15:00 23:00 07:00 06/25/16 10:23 - 07/03/16 06:30 Intake Total 1437 ml 1447 ml 66740 ml Output Total 930 ml 950 ml 83619 ml Balance 507 ml 497 ml 6442 ml Intake Oral 170 ml 50 ml 960 ml IV Total 183 ml 237 ml 86634 ml TPN/PPN 1084 ml 1160 ml 7520 ml Output Urine Total 800 ml 925 ml 72665 ml Stool Total 100 ml 0 ml 100 ml Gastric Drainage Total 500 ml Drainage Total 30 ml 25 ml 320 ml # Voids 15 Exam NAD, comfortably laying down on the bed no JVD, MMM, no LAD RRR, nl s1, s2 no mrg CTAB, no w,c, S,tender,sterilely dressed, no CVAT/suprapubic td warm, no edema, pulses 2/2 IVs and Medications Medications Reviewed: Medications were reviewed in detail Lab and Diagnostics Result Diagram: 07/03/16 0740 07/03/16 0740 X-Rays, CTs and MRIs X-RAY ACUTE ABDOMINAL SERIES INDICATIONS: abdominal pain, multiple obstructions previously TECHNIQUE: One view chest and two views of the abdomen were acquired. COMPARISON: None. FINDINGS: Surgical changes and devices: None. Chest: Lungs are clear. Mild biapical pleural thickening. Pleural calcifications right lateral chest wall. Mild eventration right hemidiaphragm. Heart size is normal. No pleural effusions. No pneumoperitoneum. Abdomen: Bowel gas pattern shows multiple stairstep air fluid levels within mildly dilated small bowel consistent with partial obstruction. There is air and stool within the colon. No suspicious calcifications. Visualized solid organ contours appear normal. Vascular calcifications. Bones: No suspicious bony lesions. Compression fractures are present in T12, L1 and L4. IMPRESSION: 1. No acute cardiopulmonary abnormality. 2. Partial small bowel obstruction. 3. 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 Assessment & Plan Patient is a 75 year old male with a past medical history of Colon Cancer status post partial colectomy with colostomy placement, Hyperlipidemia, and GERD who is admitted to hospital for Partial Small Bowel Obstruction. acute, active #Partial Small Bowel Obstruction, POA, s/p surgery 06/26, -POD#6 postop management, pain control, diet per surgery team, made some improvement with passing stools, diet advanced -O2 supplement as needed, aggressive use of incentive spirometer, encouraged with patient as long as pain is tolerable. #Sepsis with HR/fever/RR, labs showed bandemia, elevated procalcitonin, likely due to HCAP >48hrs from adm, developed post to operatively, -infectious w/u so far ngtd BCX 2sets, empirically started zosyn 06/28, patient is clinically improving, procalcitonin further trending down. continue zosyn for now, likely to finish full 14days course, will chg to oral once pt is tolerable. -O2 supplement as needed -trends fever curve, wbc, procalcitonin daily --titus d/sarah 06/30, UA unremarkable #CKD2, POA, Cr wax and wane, worse in 3days now, avoid renal toxin, adjust meds renally, will give some IVF until tomorrow, ns 100cc/hr #acute hospital delirium, developed since adm, in the setting sepsis, postop, age, underlying cognitive dysfunction, opioid. -Seroquel 25mg qhs prn, 1:1 observation as needed, aggressive reorientation, family at the beside, enough sun exposure during the day chronic, stable 2. Hyperlipdemia, likely to resume statin once cleared for diet. 3. GERD, continue Pantoprazole 40 mg IV daily and switch to PO when he can take PO again 4. Hx of Colon Cancer, CEA mildly elevated. CODE STATUS: reverted to Full Code diet: per surgery team dispo: likely prolonged given new sepsis, slow surgical progress, 2-3more days VTE Prophylaxis: Sub-Q Heparin (Unfractionated), SCDs VTE Mechanical Devices: Intermittant Pneumatic CD Resuscitation Status: CPR: Attempt Resuscitation Time spent 35min Darrion Small MD Jul 03, 2016 14:33
--- NOTE | 2016-07-03 15:01 | NUR ---
Activity Patient pleasant this shift. Call light appropriate. Reports little pain and denies nausea. OOB to chair for meals. Patient ambulates to BR with SBA. Call light and tray table within reach. Will continue to monitor patient hourly.
--- NOTE | 2016-07-03 15:11 | NUR ---
NUTRITION FOLLOW-UP: ASSESS: 75 yo M admitted for partial SBO, POD #7 following enterolysis and repair of small bowel enterotomy 2. Pt is starting to have some return of bowel function as pt with some stool and flatus in the ostomy bag. He continues on TPN and appears to be tolerating TPN well. Diet has been cautiously advanced to clear liquids per surgery yesterday. Kidney mildly worse per MD notes, IV fluids resumed. RN notes indicate confusion/owning improved. PMHX: Colon, Ca, HLD, GERD LABS: Reviewed. BUN 35, Cr 1.38, Glu 144, Alb 3.0 MEDS: Reviewed. GI: + stool and flatus via colostomy (07/03) NUTRITION SUPPORT: TPN- 375 g Dex, 125 g AA, 55 g Lipids providing 2325 kcal and 125 g pro. CURRENT WTS: 81.9 kg, BMI 28.3 kg/m2, admit wt: 81.8 kg (stated) DIET: Clear Liquids (PO 25-50%) EST. NEEDS: Colon Ca Kcals: 1147-8176 kcal/day (25-30 kcal/kg) Pro: 100-130 g/day (1.2-1.5 g/kg) Fluid: 5139-9148 ml/day (1 ml/kcal/kg) NUTRITION DIAGNOSIS: 1.) Inadequate oral intake related to decreased ability to consume sufficient energy and altered GI function as evidenced by current NPO status and need for nutrition support due to decreased bowel function. --MILDLY IMPROVING NUTRITION INTERVENTION: 1.) Continue current TPN at this time. 2.) Continue to advance diet as able per surgery recommendations. 3.) Once pt is able to tolerate 50-75% of at least a full liquid diet consistently, recommend tapering TPN. MONITOR / EVAL: TPN tolerance, diet advancement / tolerance, labs, GI status, wt, nutrition status. Will continue to monitor per high nutrition risk guidelines. Addendum: 07/04/16 at [address] Pt diet has been advanced to General today. pt was able to eat 75-100% of full liquids yesterday. Per MD note, TPN will be tapered off today. Will continue to monitor diet tolerance.
--- NOTE | 2016-07-03 15:58 | NUR ---
Social Work- Readiness for Discharge Data: EMR reviewed. Pt is on day 8 of hospitalization for partial small bowel obstruction per H&P. Pt is POD 7. Pt is not medically stable, anticipate 1-2 more days. Pt has PICC line and NG tube in place. Pt has colostomy which he manages at home. Per RN notes, pt has been up independent in his room. Pt states his will provide transport home. No anticipated discharge needs. SW will continue to follow if needs arise. Assessment:Pt who is independent at baseline. Plan: Pt to discharge home when medically stable via POV. No anticipated discharge needs. SW will continue to follow if needs arise. Sonia Vance, CLIENT RETENTION SPECIALIST
--- NOTE | 2016-07-03 18:28 | NUR ---
Pain C/o pain 4/10 to abdominal incisional site. Incision is open to air. No sign ans symptoms of infection noted. Stable mood. OOB for dinner. YOSELYN drain patent. colostomy out put amount a cup per patient. alert and oriented X3. able o make needs known. Stable vital signs. call light with in reach for safety. SCD's on. continue to monitor vital signs, infection, colostomy, YOSELYN drain, PICC line to right upper arm.
[2016-07-03] MEDS: Total Parenteral Nutrition 1 BAG IV SCH (21:00)
[2016-07-04] MEDS: 0.9% Sodium Chloride 1,000 ML IV SCH ×3 (00:20→17:08)
[2016-07-04] MEDS: Piperacillin-Tazo 3.375 Gm Inj 3.375 GM in Dextrose 5% Minibag Plus 50 ML IV SCH ×2 (00:22→08:49)
[2016-07-04] MEDS: Heparin 5,000 Unit/mL Inj SUBQ SCH ×3 (00:22→17:09)
--- NOTE | 2016-07-04 02:30 | NUR ---
Colostomy Colostomy noted to be leaking at beginning of shift. Patient unsecured bottom of colostomy bag, with liquid brown stool oozing out, but stool also noted to be leaking from bottom of wafer. Old wafer/bag removed, site cleaned well, and new colostomy appliance applied. Stoma moist and red in color. No further leaking noted, continuing to have liquid brown stool as output. No c/o pain or discomfort so far this shift.
[2016-07-04 05:15] VITALS: BP 149/72; PULSE 83; RESP 20; O2SAT 98
[2016-07-04 05:54] LABS: BASOPHILS % (AUTO) 0.5 % (0-3); EOSINOPHILS % (AUTO) 4.4 % (0-5); MONOCYTES % (AUTO) 9.7 % (4-12); Mean Corpuscular Volume 92.2 fL (81-100); NEUTROPHILS % (AUTO) 62.6 % (40-74); Platelet Count 265 bil/L (150-400)
[2016-07-04 06:15] LABS: Magnesium 2.2 mg/dL (1.6-2.6); Phosphorus 2.1 mg/dL (2.5-4.9)
--- NOTE | 2016-07-04 08:07 | PCM.PNSURG ---
Subjective Date of Service: Jul 04, 2016 Visit Information: Reason for Visit Partial Small Bowel Obstruction Surgery/Surgery Date Post-Op Day # 8 Date of Admission: Jun 25, 2016 at 13:59 Hospital Day # Subjective: Eating a soft diet with no nausea or vomiting. Another large bowel movement via ostomy yesterday and continues to pass semi-formed/liquid stool. Pain well controlled with oral analgesic. Ambulatory in the room with a walker. Postop General: No Complaints Gastrointestinal: Tolerating Oral Feedings, No N/V, Passing Stool (via ostomy) Pain Management: PO Postop Activity: Ambulates with Assist Device Objective Vital Sign- Last 8 Hours Date Time Temp Pulse Resp B/P Pulse Ox O2 Delivery O2 Flow Rate FiO2 07/04/16 05:15 37.2 83 20 149/72 98 Room Air Intake and Output- Last 8 Hour 07/04/16 Cumulative From/Thru 07:00 06/25/16 10:23 - 07/04/16 05:50 Intake Total 1619 ml 56220 ml Output Total 04266 ml Balance 1619 ml 9701 ml Intake Oral 2120 ml IV Total 933 ml 99910 ml TPN/PPN 686 ml 9350 ml Output Urine Total 39443 ml Stool Total 100 ml Gastric Drainage Total 500 ml Drainage Total 320 ml # Voids 15 General: Alert, Cooperative, No Acute Distress Lungs: Clear to Auscultation Heart: Regular Rate/Rhythm, Murmur (grade 2/6 systolic murmur) Abdomen: Soft, Appropriately tender, Non-distended, Ostomy pink & viable (with stool in the bag) SURGICAL WOUND : Wound General Appearence: Steri Strips, Intact, No Discharge, Erythema ( minimal blanching erythema at the inferior aspect.) Wound Drainage Type: YOSELYN Drain #1 (20 mL of serosanguineous output over the last 8 hours.) Extremities: Thigh&Calf Soft/Nontender Neuro: Normal Speech Catheters: None Result Diagram: 07/04/1653907/04/16539 Assessment & Plan Impression Primary diagnosis: 1. Small bowel obstruction. POD # 8 following enterolysis and repair of small bowel enterotomy 2 with return of bowel function and tolerating an oral diet. 2. Severe sepsis, resolved 3. Acute hospital delirium, well-managed on Seroquel. Other diagnoses: 1. Colon Cancer, status post partial colectomy 2. Hyperlipidemia 3. GERD 4. Former cigarette smoker 5. History of hospital induced sundowning. 6. Chronic kidney disease Problems: Plan 1. Regular diet. TPN can be tapered and discontinued. 2. May shower. 3. Remove YOSELYN 4. Surgically stable for discharge after TPN has been tapered and discontinued. 5. Follow-up in the office in 5 days for staple removal. 6. Stop IV pain medications Pain Management: Oral Tylenol VTE Prophylaxis: Sub-Q Heparin (Unfractionated), SCDs Resuscitation Status: CPR: Attempt Resuscitation Tanvir Wilcox PA-C Jul 04, 2016 08:07
[2016-07-04] MEDS: TPN Per Pharmacist XX SCH (08:30)
[2016-07-04] MEDS: Pantoprazole 4 mg/mL 10 mL Inj IVPUSH SCH (08:49)
--- NOTE | 2016-07-04 10:15 | NUR ---
YOSELYN Drain YOSELYN drain was removed, intact, per orders.
[2016-07-04] MEDS ORDERED: levoFLOXacin 750 mg Tablet PO ONE (11:40)
--- NOTE | 2016-07-04 11:42 | PCM.PNMED ---
Subjective Date of Service Jul 04, 2016 Subjective Patient held leakage from colostomy bag was changed overnight Otherwise patient is eating well, TPN to be titrate off today Exam Vital Signs Vital Sign - Last Date Time Temp Pulse Resp B/P Pulse Ox O2 Delivery O2 Flow Rate FiO2 07/04/16 05:15 37.2 83 20 149/72 98 Room Air 07/03/16 05:16 2.00 Intake and Output 07/03/16 07/03/16 07/04/16 Cumulative From/Thru 15:00 23:00 07:00 06/25/16 10:23 - 07/04/16 05:50 Intake Total 2790 ml 1619 ml 22907 ml Output Total 1150 ml 18057 ml Balance 1640 ml 1619 ml 9701 ml Intake Oral 1160 ml 2120 ml IV Total 486 ml 933 ml 71004 ml TPN/PPN 1144 ml 686 ml 9350 ml Output Urine Total 1150 ml 08072 ml Stool Total 100 ml Gastric Drainage Total 500 ml Drainage Total 320 ml # Voids 15 Exam NAD, comfortably laying down on the bed no JVD, MMM, no LAD RRR, nl s1, s2 no mrg CTAB, no w,c, S,tender,sterilely dressed, no CVAT/suprapubic td warm, no edema, pulses 2/2 IVs and Medications Medications Reviewed: Medications were reviewed in detail Lab and Diagnostics Result Diagram: 07/04/16 0540 07/04/16 0540 X-Rays, CTs and MRIs X-RAY ACUTE ABDOMINAL SERIES INDICATIONS: abdominal pain, multiple obstructions previously TECHNIQUE: One view chest and two views of the abdomen were acquired. COMPARISON: None. FINDINGS: Surgical changes and devices: None. Chest: Lungs are clear. Mild biapical pleural thickening. Pleural calcifications right lateral chest wall. Mild eventration right hemidiaphragm. Heart size is normal. No pleural effusions. No pneumoperitoneum. Abdomen: Bowel gas pattern shows multiple stairstep air fluid levels within mildly dilated small bowel consistent with partial obstruction. There is air and stool within the colon. No suspicious calcifications. Visualized solid organ contours appear normal. Vascular calcifications. Bones: No suspicious bony lesions. Compression fractures are present in T12, L1 and L4. IMPRESSION: 1. No acute cardiopulmonary abnormality. 2. Partial small bowel obstruction. 3. 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 Assessment & Plan Patient is a 75 year old male with a past medical history of Colon Cancer status post partial colectomy with colostomy placement, Hyperlipidemia, and GERD who is admitted to hospital for Partial Small Bowel Obstruction. acute, active #Partial Small Bowel Obstruction, POA, s/p surgery 06/26, -POD#7 postop management, pain control, diet per surgery team, made some improvement with passing stools, diet advanced -O2 supplement as needed, aggressive use of incentive spirometer, encouraged with patient as long as pain is tolerable. #Sepsis with HR/fever/RR, labs showed bandemia, elevated procalcitonin, likely due to HCAP >48hrs from adm, developed post to operatively, -infectious w/u so far ngtd BCX 2sets, empirically started zosyn 06/28-07/04, clinically improved, will switch to Levaquin po today 14days course. -O2 supplement as needed -trends fever curve, wbc, procalcitonin daily --titus d/sarah 06/30, UA unremarkable #CKD2, POA, Cr wax and wane, worse in 3days improved IVF, avoid renal toxin, adjust meds renally, will stop IVF again given improvement, good oral intake #acute hospital delirium, developed since adm, in the setting sepsis, postop, age, underlying cognitive dysfunction, opioid. -Seroquel 25mg qhs prn, 1:1 observation as needed, aggressive reorientation, family at the beside, enough sun exposure during the day chronic, stable 2. Hyperlipdemia, likely to resume statin once cleared for diet. 3. GERD, continue Pantoprazole 40 mg IV daily and switch to PO when he can take PO again 4. Hx of Colon Cancer, CEA mildly elevated. CODE STATUS: reverted to Full Code diet: taper TPN, advance dietas tolerate dispo:likely tomorrow home. VTE Prophylaxis: Sub-Q Heparin (Unfractionated), SCDs VTE Mechanical Devices: Intermittant Pneumatic CD Resuscitation Status: CPR: Attempt Resuscitation Time spent 35min Darrion Small MD Jul 04, 2016 11:39
[2016-07-04 13:20] VITALS: BP 179/79; PULSE 86; RESP 19; O2SAT 98
--- NOTE | 2016-07-04 15:06 | NUR ---
Mentation Pt has had increased confusion about where he is. Pt states that he has been in 3-4 different rooms. Pt re-orients well. Pt knows what year it is, where he is, and that he has had surgery. was concerned with increased confusion. MD notified and talked with . Will continue to re-orient pt and Wilfredo alarm is on for pt safety. continues to be at bedside.
[2016-07-04 20:46] VITALS: BP 187/74; PULSE 82; RESP 18; O2SAT 98
[2016-07-04 23:31] VITALS: BP 188/72
[2016-07-05] MEDS: Heparin 5,000 Unit/mL Inj SUBQ SCH ×3 (00:10→17:14)
--- NOTE | 2016-07-05 00:29 | NUR ---
Blood Pressure BP @ beginning of shift: 187/74. No scheduled or PRN anti-hypertensive medications ordered. Dr. Rizo on the floor and in to assess patient. No new orders but to notify him of next BP reading. BP rechecked and was noted to be: 188/72. Order for Norvasc 5mg PO received and medication given. Addendum: 07/05/16 at 0318 by JANINE GOLDSMITH RN Patient up walking around hallway for the first time this shift. Upon returning to room, patient vomited all over table, floor, and bed. Currently no further complaints of N/V. Encouraging to take activity easy for remainder of shift. Addendum: 07/05/16 at 0554 by JANINE GOLDSMITH RN IVF total this shift= 2275 ml. Pump not cleared on previous shift. Addendum: 07/05/16 at 0621 by JANINE GOLDSMITH RN BP this AM: 187/74. ROD kemp sent to Dr. Rizo @ [phone].
[2016-07-05] MEDS: 0.9% Sodium Chloride 1,000 ML IV SCH (03:50)
[2016-07-05 05:39] VITALS: BP 187/74; PULSE 87; RESP 16; O2SAT 97
[2016-07-05 06:03] LABS: BASOPHILS % (AUTO) 0.3 % (0-3); EOSINOPHILS % (AUTO) 2.3 % (0-5); MONOCYTES % (AUTO) 8.4 % (4-12); Mean Corpuscular Hemoglobin 29.8 pg (27.0-35.0); Mean Corpuscular Volume 92.3 fL (81-100); NEUTROPHILS % (AUTO) 70.5 % (40-74); Platelet Count 311 bil/L (150-400)
--- NOTE | 2016-07-05 06:25 | NUR ---
Pt. had copious amounts of emesis early this AM. Pt. vomitted all over floor and bed. Unable to measure emesis. Roughly 700ml with some undigested food mixed in. Yellowish Green in color with very foul almost fecal like odor.
[2016-07-05 06:26] LABS: Magnesium 1.8 mg/dL (1.6-2.6); Phosphorus 3.6 mg/dL (2.5-4.9)
[2016-07-05] MEDS ORDERED: levoFLOXacin 750 mg Tablet PO SCH (07:30)
[2016-07-05] MEDS ORDERED: Pantoprazole 40 mg ER24 Tablet PO SCH (07:30)
--- NOTE | 2016-07-05 07:54 | PCM.PNSURG ---
Subjective Date of Service: Jul 05, 2016 Visit Information: Reason for Visit Partial Small Bowel Obstruction Surgery/Surgery Date Post-Op Day #9 Date of Admission: Jun 25, 2016 at 13:59 Hospital Day # Subjective: Large emesis overnight, he is eating a regular diet. The patient believes this was related to overdoing it with ambulation. Since that time he continues to have an appetite and is not nauseated. The patient is requesting discharge from the hospital. Pain is well-controlled on oral analgesic. Postop General: No Complaints Gastrointestinal: Tolerating Oral Feedings, Passing Stool (via ostomy) Pain Management: PO Postop Activity: Ambulate with Assist Objective Vital Sign- Last 8 Hours Date Time Temp Pulse Resp B/P Pulse Ox O2 Delivery O2 Flow Rate FiO2 07/05/16 05:39 37.0 87 16 187/74 97 Room Air Intake and Output- Last 8 Hour 07/05/16 Cumulative From/Thru 07:00 06/25/16 10:23 - 07/05/16 06:24 Intake Total 2388 ml 11569 ml Output Total 1575 ml 06194 ml Balance 813 ml 7619 ml Intake Oral 113 ml 2693 ml IV Total 2275 ml 70959 ml TPN/PPN 9479 ml Output Urine Total 1575 ml 89534 ml Stool Total 375 ml Gastric Drainage Total 500 ml Drainage Total 340 ml # Voids 28 General: Alert, Cooperative, No Acute Distress Lungs: Clear to Auscultation Heart: Regular Rate/Rhythm Abdomen: Soft, Non-tender, Non-distended, Ostomy pink & viable (with stool and gas in the bag) SURGICAL WOUND : Wound General Appearence: [place], Intact, No Discharge, Erythema (minimal erythema at the inferior aspect of the incision.) Neuro: Normal Speech Catheters: None Result Diagram: 07/05/16 0540 07/05/16 0540 Assessment & Plan Impression Primary diagnosis: 1. Small bowel obstruction. POD # 9 following enterolysis and repair of small bowel enterotomy 2 with return of bowel function and tolerating an oral diet with 1 episode of vomiting last night, no longer nauseated. Surgically stable for discharge. 2. Severe sepsis, resolved 3. Acute hospital delirium, well-managed on Seroquel. Other diagnoses: 1. Colon Cancer, status post partial colectomy 2. Hyperlipidemia 3. GERD 4. Former cigarette smoker 5. History of hospital induced sundowning. 6. Chronic kidney disease Problems: Plan 1. Surgically stable for discharge. 2. Remove every other staple and apply a full-length quarter inch Steri-Strip. 3. Follow-up in surgery clinic on July 09 for staple removal. Pain Management: Oral Tylenol VTE Prophylaxis: Sub-Q Heparin (Unfractionated), SCDs Resuscitation Status: CPR: Attempt Resuscitation copies to: Jose Duong MD, Fred H PA-C Jul 05, 2016 07:54
--- NOTE | 2016-07-05 08:00 | PCM.DISURG ---
Surgical Discharge Instruction Date of Service Jul 05, 2016 Dates of Hospitalization Date of Hospital Admission Jun 25, 2016 at 13:59 Providers Admitting Physician: Kamar Maurer MD Primary Care Physician: Jose Duong MD Attending Physician: Kamar Maurer MD Discharge Diagnosis Discharge Diagnosis Primary diagnosis: 1. Small bowel obstruction. 2. Severe sepsis, resolved 3. Acute hospital delirium, well-managed on Seroquel. Other diagnoses: 1. Colon Cancer, status post partial colectomy 2. Hyperlipidemia 3. GERD 4. Former cigarette smoker 5. History of hospital induced . 6. Chronic kidney disease Post Operative diagnosis Same Diet Discharge Diet: No restrictions Activity Discharge Activity-General: Try not to overdue, Be up and about, Balance rest and activity Dressing and Incisional Care Dressing Care: Allow Steri Stripes to fall off Hygiene: May shower Follow Up Plan Follow Up Plan Follow-up in the surgery clinic on July 09 for staple removal. Call your provider for: Fever, Chills, Increasing abdominal pain, Nausea, Vomiting, Wound redness, Increasing wound pain, Warmth to touch, Discharge @ incision, pus discharge Tanvir Wilcox PA-C Jul 05, 2016 08:00
[2016-07-05] MEDS: D5 0.45% NaCl + KCl 20 mEq/L 1,000 ML IV SCH ×2 (10:56→20:19)
--- NOTE | 2016-07-05 11:40 | NUR ---
NUTRITION FOLLOW-UP: ASSESS: 75 yo M admitted for partial SBO, POD #9 following enterolysis and repair of small bowel enterotomy 2, now with bowel function return and tolerance of po diet, however RN notes pt with 2 episodes of vomiting. No c/o nausea, pt attributing vomiting to excessive activity. PMHX: Colon, Ca, HLD, GERD LABS: Reviewed. Alb 3.4, Glu 113, Na 146, Cr 1.39 MEDS: Reviewed. GI: + stool and flatus via colostomy (07/04) NUTRITION SUPPORT: TPN- DISCONTINUED CURRENT WTS: 82.4 kg, BMI 28.5 kg/m2, admit wt: 81.8 kg (stated) DIET: General. PO 0-50% x 24hrs EST. NEEDS: Colon Ca Kcals: 8858-5079 kcal/day (25-30 kcal/kg) Pro: 100-130 g/day (1.2-1.5 g/kg) Fluid: 3155-6407 ml/day (1 ml/kcal/kg) NUTRITION DIAGNOSIS: 1.) Inadequate oral intake related to decreased ability to consume sufficient energy and altered GI function as evidenced by current NPO status and need for nutrition support due to decreased bowel function. --IMPROVING. Pt now on general diet with moderate po intake. NUTRITION INTERVENTION: 1.) Supplements added with meals to promote adequate po intake. MONITOR / EVAL: Diet tolerance, labs, GI status, wt, nutrition status. Will continue to monitor per high nutrition risk guidelines. -
[2016-07-05 13:29] VITALS: BP 182/74; PULSE 89; RESP 20; O2SAT 96
[2016-07-05] MEDS ORDERED: Acetaminophen IV 1,000 MG in IV Premix 1 EACH IV PRN (15:15)
[2016-07-05] MEDS ORDERED: hydrALAZINE 20 mg/mL Inj IV PRN (15:45)
--- NOTE | 2016-07-05 15:46 | PCM.PNMED ---
Subjective Date of Service Jul 05, 2016 Subjective There is reported the patient had projectile vomiting last night The patient also had another vomiting after breakfast Discharge was helped by surgery, kept him nothing by mouth Exam Vital Signs Vital Sign - Last Date Time Temp Pulse Resp B/P Pulse Ox O2 Delivery O2 Flow Rate FiO2 07/05/16 13:29 36.8 89 20 182/74 96 Room Air 07/03/16 05:16 2.00 Intake and Output 07/04/16 07/04/16 07/05/16 Cumulative From/Thru 15:00 23:00 07:00 06/25/16 10:23 - 07/05/16 06:24 Intake Total 300 ml 1425 ml 2388 ml 44314 ml Output Total 2195 ml 2425 ml 1575 ml 36635 ml Balance -1895 ml -1000 ml 813 ml 7619 ml Intake Oral 300 ml 160 ml 113 ml 2693 ml IV Total 1136 ml 2275 ml 53231 ml TPN/PPN 129 ml 9479 ml Output Urine Total 2050 ml 2275 ml 1575 ml 14363 ml Stool Total 125 ml 150 ml 375 ml Gastric Drainage Total 500 ml Drainage Total 20 ml 340 ml # Voids 13 28 Exam NAD, comfortably laying down on the bed no JVD, MMM, no LAD RRR, nl s1, s2 no mrg CTAB, no w,c, S,tender,sterilely dressed, no CVAT/suprapubic td warm, no edema, pulses 2/2 IVs and Medications Medications Reviewed: Medications were reviewed in detail Lab and Diagnostics Result Diagram: 07/05/16 0540 07/05/16 0540 X-Rays, CTs and MRIs X-RAY ACUTE ABDOMINAL SERIES INDICATIONS: abdominal pain, multiple obstructions previously TECHNIQUE: One view chest and two views of the abdomen were acquired. COMPARISON: None. FINDINGS: Surgical changes and devices: None. Chest: Lungs are clear. Mild biapical pleural thickening. Pleural calcifications right lateral chest wall. Mild eventration right hemidiaphragm. Heart size is normal. No pleural effusions. No pneumoperitoneum. Abdomen: Bowel gas pattern shows multiple stairstep air fluid levels within mildly dilated small bowel consistent with partial obstruction. There is air and stool within the colon. No suspicious calcifications. Visualized solid organ contours appear normal. Vascular calcifications. Bones: No suspicious bony lesions. Compression fractures are present in T12, L1 and L4. IMPRESSION: 1. No acute cardiopulmonary abnormality. 2. Partial small bowel obstruction. 3. 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 Assessment & Plan Patient is a 75 year old male with a past medical history of Colon Cancer status post partial colectomy with colostomy placement, Hyperlipidemia, and GERD who is admitted to hospital for Partial Small Bowel Obstruction. acute, active #Partial Small Bowel Obstruction, POA, s/p surgery 06/26, - postop management, pain control, diet per surgery team, made some improvement with passing stools, diet advanced but had GI episode today -O2 supplement as needed, aggressive use of incentive spirometer, encouraged with patient as long as pain is tolerable. #Sepsis with HR/fever/RR, labs showed bandemia, elevated procalcitonin, likely due to HCAP >48hrs from adm, developed post to operatively, -infectious w/u so far ngtd BCX 2sets, empirically started zosyn 06/28-07/04, clinically improved, will switch to Levaquin po today 14days course. -O2 supplement as needed -trends fever curve, wbc, procalcitonin daily --titus d/sarah 06/30, UA unremarkable #CKD2, POA, Cr wax and wane, worse in 3days improved IVF, avoid renal toxin, adjust meds renally, will stop IVF again given improvement, good oral intake #acute hospital delirium, developed since adm, in the setting sepsis, postop, age, underlying cognitive dysfunction, opioid. -Seroquel 25mg qhs prn, 1:1 observation as needed, aggressive reorientation, family at the beside, enough sun exposure during the day #hypertensive episode, no hx of HTN, wax and wane, likely related to acute stress, post op pain, delirium, will gently control with hydralazine prn if > 180s chronic, stable 2. Hyperlipdemia, likely to resume statin once cleared for diet. 3. GERD, continue Pantoprazole 40 mg IV daily and switch to PO when he can take PO again 4. Hx of Colon Cancer, CEA mildly elevated. CODE STATUS: reverted to Full Code diet:NPO now, defer to surgery. dispo:pending, likely om 1-2days VTE Prophylaxis: Sub-Q Heparin (Unfractionated), SCDs VTE Mechanical Devices: Intermittant Pneumatic CD Resuscitation Status: CPR: Attempt Resuscitation Time spent 35min Darrion Small MD Jul 05, 2016 15:46
--- NOTE | 2016-07-05 15:49 | NUR ---
Social Work- Readiness for Discharge Data: EMR reviewed. Pt is on day 10 of hospitalization for partial small bowel obstruction per H&P. Pt is not medically stable, anticipate 1-2 more days. Pt has colostomy which he manages at home. SW was notified that pt's has concerns about support at home and pts increased confusion. SW met with pt regarding these concerns, offered emotional support. SW provided pt's with Senior Resource Guide and [facility] contact information. Pt's denied SW offers to follow up with pt's doctors regarding pt's 's questions. No anticipated discharge needs. SW will continue to follow if needs arise. Assessment:Pt who is independent at baseline. Plan: Pt to discharge home when medically stable via POV. No anticipated discharge needs. SW will continue to follow if needs arise. PURVI Clarke
[2016-07-05 16:24] VITALS: BP 166/74; PULSE 85
--- NOTE | 2016-07-05 16:34 | DRSVH ---
PROCEDURE: X-RAY ABDOMEN WITH ERECT AND/OR DECUBITUS VIEWS ([id number]) INDICATIONS: postop ileus, vomiting TECHNIQUE: 2 views of the abdomen were acquired. COMPARISON: None. FINDINGS: Surgical changes and devices: Laparotomy sara.. Bowel: No pneumoperitoneum. The bowel gas pattern is normal. Soft tissues: Abnormal bowel gas pattern is present. Asymmetric dilatation of small bowel throughou t the abdomen and pelvis with paucity of gas within the colon. No pneumatosis or bowel wall thickeni ng. No pneumoperitoneum. Vascular calcifications indicate atherosclerosis. Bones: No suspicious bony abnormalities. IMPRESSION: Early complete or partial small bowel obstruction. Dictated by: Vahe Dior [facility] Interpreted: Joaquina Calderón MD on 07/05/2016 at 16:33 Transcribed by: JENNIFER on 07/05/2016 at 16:33 Approved by: Joaquina Calderón MD, PhD on 07/05/2016 at 17:09
--- NOTE | 2016-07-05 17:39 | NUR ---
pt threw up 2 times during the day unable to get amount as it was all over
--- NOTE | 2016-07-05 18:23 | NUR ---
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 MD aware. Pt has had second episode of emesis after breakfast. MD notified and discharge was cancelled. MD ordered Zofran prn but since this morning pt has had no more incidents nausea or emesis. Pt stated this morning that he has had no pain, but with further inquiry he stated his pain is a mild 4/10. MD notified and pt received order of IV Tylenol. After pt received IV Tylenol he has been able to sleep. Pt's blood pressure remained high this morning and MD ordered prn medication. Since the order was written pt did not meet requirements to give medication. remains at bedside as the pt is still impulsive and has increased confusion when she is gone. Pt also states that he is seeing things (water dripping from the ceiling and a cat running in the room.) MD dior of hallucinations. Phillips alarm on for safety. Lights on bright in the room to decrease confusion. Care continues.
[2016-07-05 19:07] VITALS: BP 169/74; PULSE 80; RESP 18; O2SAT 97
[2016-07-06] MEDS: Heparin 5,000 Unit/mL Inj SUBQ SCH ×3 (01:45→17:50)
--- NOTE | 2016-07-06 03:01 | NUR ---
Staple removal Per order every other staple removed replaced with steri strips. Wound red at staple puncture sites, dry, and flaky. Possibly needs wound consult. Patient had c/o left side sharp pains but tolerable denied need for pain medication.
[2016-07-06 04:32] VITALS: BP 148/70; PULSE 77; RESP 17; O2SAT 98
[2016-07-06 04:46] LABS: BASOPHILS % (AUTO) 0.5 % (0-3); EOSINOPHILS % (AUTO) 2.5 % (0-5); MONOCYTES % (AUTO) 8.8 % (4-12); Mean Corpuscular Hemoglobin 29.6 pg (27.0-35.0); Mean Corpuscular Volume 92.7 fL (81-100); NEUTROPHILS % (AUTO) 71.3 % (40-74); Platelet Count 351 bil/L (150-400)
[2016-07-06 05:35] LABS: Magnesium 1.7 mg/dL (1.6-2.6); Phosphorus 3.6 mg/dL (2.5-4.9)
--- NOTE | 2016-07-06 06:17 | NUR ---
Ambulated in hallway with SBA. Denies pain or nausea. Bowel tones to right side of abdomen, colostomy putting out small amount of liquid stool. Sitter at bedside for safety.
[2016-07-06] MEDS: D5 0.45% NaCl + KCl 20 mEq/L 1,000 ML IV SCH ×3 (06:46→19:13)
[2016-07-06] MEDS: Pantoprazole 4 mg/mL 10 mL Inj IVPUSH SCH (10:16)
[2016-07-06] MEDS: levoFLOXacin Inj 750 MG in IV Premix 1 EACH IV SCH (10:20)
--- NOTE | 2016-07-06 10:26 | PROG NOTE ---
[address] [address] PROGRESS NOTE PATIENT: AKASH KIMBALL : 1940 MR#: [id number] ADMIT: 06/25/2016 JOB ID: [id number] DATE: 07/06/2016 SUBJECTIVE: The patient is seen in follow up. He has had no more nausea and vomiting this morning. He is seen together with his . He put out some liquid stool during the night. There is air in the appliance this morning. PHYSICAL EXAMINATION: Incision is doing well. There is erythema around the sara. I think the remaining sara can be removed tomorrow and again air in his colostomy appliance. DATE: IMPRESSION: Ileus versus postoperative partial bowel obstruction. PLAN: Continue current care. Encourage activity.
--- NOTE | 2016-07-06 10:30 | PCM.PNSURG ---
Subjective Date of Service: Jul 06, 2016 Date of Service: Jul 06, 2016 Visit Information: Reason for Visit: Partial Small Bowel Obstruction Surgery: Laparoscopic lysis of adhesions, converted to open lysis of adhesions , repair of small bowel enterotomy x2, with extended degree of difficulty. Surgery Date: 06/26/16 Post-Op Day # 10 Date of Admission: Jun 25, 2016 at 13:59 Subjective: The patient was resting in bed in no apparent distress. He is a little discouraged from previous 24 hour events with 2 episodes of emesis. He is alert and oriented this AM, no owning per who is at his bedside. Gastrointestinal: No N/V, No Belching, Passing Flatus (In ostomy appliance) Pain Management: PO Postop Activity: Ambulate with Assist Objective Vital Sign- Last 8 Hours Date Time Temp Pulse Resp B/P Pulse Ox O2 Delivery O2 Flow Rate FiO2 07/06/16 04:32 36.6 77 17 148/70 98 Room Air Intake and Output- Last 8 Hour 07/06/16 Cumulative From/Thru 07:00 06/25/16 10:23 - 07/06/16 06:19 Intake Total 1137 ml 77549 ml Output Total 1550 ml 37741 ml Balance -413 ml 8483 ml Intake Oral 0 ml 3093 ml IV Total 1137 ml 91938 ml TPN/PPN 9479 ml Output Urine Total 1550 ml 39713 ml Stool Total 525 ml Gastric Drainage Total 500 ml Drainage Total 340 ml # Voids 32 General: Alert, Oriented X3, No Acute Distress Lungs: Coarse (anterior) Heart: Regular Rate/Rhythm, No Murmurs/Rubs/Gallops Abdomen: Soft, Appropriately tender, Non-distended, Normoactive bowel tones ( mainly on the right), Ostomy (small amount of brown liquid) SURGICAL WOUND : Wound General Appearence: [place], Steri Strips, Intact, Well Approximated, No Discharge, Erythema (around sara) Extremities: Warm, Thigh&Calf Soft/Nontender Neuro: Grossly Neurologically Intact Catheters: None Result Diagram: 07/06/1640907/06/16409 Diagnostics: Abdominal X-ray 07/05/16 IMPRESSION: Early complete or partial small bowel obstruction. Assessment & Plan Impression Primary diagnosis: 1. Small bowel obstruction. POD # 10 following enterolysis and repair of small bowel enterotomy 2 with return of bowel function and tolerating an oral diet then had 2 episodes of vomiting in the PM & followin AM, treated with Zofran. Discharge held yesterday and patient placed NPO 2. Severe sepsis, resolved 3. Acute hospital delirium, well-managed on Seroquel. Other diagnoses: 1. Colon Cancer, status post partial colectomy 2. Hyperlipidemia 3. GERD 4. Former cigarette smoker 5. History of hospital induced ing. 6. Chronic kidney disease Problems: Plan 1. Patient currently NPO on TPN 2. NG will be placed if vomits again and abdomen gets distended 3. Abdominal films suggest partial SBO VTE Prophylaxis: Sub-Q Heparin (Unfractionated), SCDs Resuscitation Status: CPR: Attempt Resuscitation Robyn Perez PA-C Jul 06, 2016 10:30 Robyn Perez PA-C Jul 06, 2016 10:30
--- NOTE | 2016-07-06 10:36 | PCM.PNMED ---
Subjective Date of Service Jul 06, 2016 Subjective No nausea vomiting overnight The confusion Discharge was held due to symptoms yesterday, repeat x-ray showed early SBO patient kept him nothing by mouth Patient denied difficulty breathing, cough Exam Vital Signs Vital Sign - Last Date Time Temp Pulse Resp B/P Pulse Ox O2 Delivery O2 Flow Rate FiO2 07/06/16 04:32 36.6 77 17 148/70 98 Room Air 07/03/16 05:16 2.00 Intake and Output 07/05/16 07/05/16 07/06/16 Cumulative From/Thru 15:00 23:00 07:00 06/25/16 10:23 - 07/06/16 06:19 Intake Total 1827 ml 1137 ml 30717 ml Output Total 550 ml 1550 ml 81630 ml Balance 1277 ml -413 ml 8483 ml Intake Oral 400 ml 0 ml 3093 ml IV Total 1427 ml 1137 ml 72823 ml TPN/PPN 9479 ml Output Urine Total 400 ml 1550 ml 11836 ml Stool Total 150 ml 525 ml Gastric Drainage Total 500 ml Drainage Total 340 ml # Voids 4 32 Exam NAD, comfortably laying down on the bed no JVD, MMM, no LAD RRR, nl s1, s2 no mrg CTAB, no w,c, S, nontender, healing scare, stools in colostomy bag, no CVAT/suprapubic td warm, no edema, pulses 2/2 IVs and Medications Medications Reviewed: Medications were reviewed in detail Lab and Diagnostics Result Diagram: 07/06/16 0410 07/06/16 0410 X-Rays, CTs and MRIs X-RAY ACUTE ABDOMINAL SERIES INDICATIONS: abdominal pain, multiple obstructions previously TECHNIQUE: One view chest and two views of the abdomen were acquired. COMPARISON: None. FINDINGS: Surgical changes and devices: None. Chest: Lungs are clear. Mild biapical pleural thickening. Pleural calcifications right lateral chest wall. Mild eventration right hemidiaphragm. Heart size is normal. No pleural effusions. No pneumoperitoneum. Abdomen: Bowel gas pattern shows multiple stairstep air fluid levels within mildly dilated small bowel consistent with partial obstruction. There is air and stool within the colon. No suspicious calcifications. Visualized solid organ contours appear normal. Vascular calcifications. Bones: No suspicious bony lesions. Compression fractures are present in T12, L1 and L4. IMPRESSION: 1. No acute cardiopulmonary abnormality. 2. Partial small bowel obstruction. 3. 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 Assessment & Plan Patient is a 75 year old male with a past medical history of Colon Cancer status post partial colectomy with colostomy placement, Hyperlipidemia, and GERD who is admitted to hospital for Partial Small Bowel Obstruction. acute, active #Partial Small Bowel Obstruction, POA, s/p surgery 06/26, repeat AXR 07/05 showed SBO - postop management, pain control, diet per surgery team,clinically worse yesterday, then seemed to improve -O2 supplement as needed, aggressive use of incentive spirometer, encouraged with patient as long as pain is tolerable. #Sepsis with HR/fever/RR, labs showed bandemia, elevated procalcitonin, likely due to HCAP >48hrs from adm, developed post to operatively, -infectious w/u so far ngtd BCX 2sets, empirically started zosyn 06/28-07/04, clinically improved, switched to Levaquin po 07/05 to finish 14days course. -O2 supplement as needed -trends fever curve, wbc, --titus d/sarah 06/30, UA unremarkable #CKD2, POA, Cr wax and wane, worse, avoid renal toxin, adjust meds renally, stopped IVF again given improvement, good oral intake #acute hospital delirium, developed since adm, in the setting sepsis, postop, age, underlying cognitive dysfunction, opioid. -Seroquel 25mg qhs prn, 1:1 observation as needed, aggressive reorientation, family at the beside, enough sun exposure during the day #hypertensive episode, no hx of HTN, wax and wane, likely related to acute stress, post op pain, delirium, will gently control with hydralazine prn if > 180s chronic, stable 2. Hyperlipdemia, likely to resume statin once cleared for diet. 3. GERD, continue Pantoprazole 40 mg IV daily and switch to PO when he can take PO again 4. Hx of Colon Cancer, CEA mildly elevated. CODE STATUS: reverted to Full Code diet:NPO now, defer to surgery. dispo:pending, likely om 1-2days VTE Prophylaxis: Sub-Q Heparin (Unfractionated), SCDs VTE Mechanical Devices: Intermittant Pneumatic CD Resuscitation Status: CPR: Attempt Resuscitation Time spent 35min Darrion Small MD Jul 06, 2016 10:36
[2016-07-06 11:29] VITALS: BP 160/75; PULSE 75; RESP 16; O2SAT 99
--- NOTE | 2016-07-06 11:50 | NUR ---
NUTRITION FOLLOW-UP: ASSESS: 75 yo M admitted for partial SBO, POD #10 following enterolysis and repair of small bowel enterotomy 2. Pt was on a general diet and TPN was off but pt began to experience some n/v and was made NPO. TPN was re-ordered. PMHX: Colon, Ca, HLD, GERD LABS: Reviewed. Rn Plasma Center 1.34, Glu 106, ALT 49, Alb 3.2 MEDS: Reviewed. GI: 150ml stool output via colostomy 07/05 NUTRITION SUPPORT: TPN to re-start tonight. Dex 375g, 125g AA and 55g lipids. CURRENT WTS: 82.4 kg, BMI 28.5 kg/m2, admit wt: 81.8 kg (stated) DIET: NPO EST. NEEDS: Colon Ca Kcals: 1635-7497 kcal/day (25-30 kcal/kg) Pro: 100-130 g/day (1.2-1.5 g/kg) Fluid: 0352-2625 ml/day (1 ml/kcal/kg) NUTRITION DIAGNOSIS: 1.) Inadequate oral intake related to decreased ability to consume sufficient energy and altered GI function as evidenced by current NPO status and need for nutrition support due to decreased bowel function. --PERSISTS NUTRITION INTERVENTION: 1.) Due to current NPO status and re-order of TPN, will start TPN at previous macronutrients of 375g Dex, 125g AA and 55glipids to provide 2325 kcal and 125 g pro. Pharmacy is aware. 2.) Advance diet when medically appropriate. Will monitor for PO tolerance and possible need to decrease TPN rate if diet is advanced and PO is tolerated. MONITOR / EVAL: TPN, NPO, Diet tolerance, labs, GI status, wt, nutrition status. Will continue to monitor per high nutrition risk guidelines.
--- NOTE | 2016-07-06 16:11 | PCM.PHAPRO ---
Progress Date of Service: Jul 06, 2016 Requesting Provider: Francisca Fisher DO SMALL BOWEL OBSTRUCTION A/ - Patient is on day 10 post-op for repair of small bowel obstruction, placed on TPN from 06/29 to 07/03 when he could tolerate po. Discharge was planned on 07/05 and held due to patient put out some liquid stool and a couple emesis last night and following morning. Patient is back to NPO, and TPN re-ordered. - D5 1/2 NS + K+ 20 mEq running @ 100 ml/hr - All labs WNL P/ - Nutrition recommended resume macronutrient as last TPN order PARENTERAL NUTRITION ORDERS 8 - Substrates AMINO ACIDS 125 g DEXTROSE 375 g LIPIDS 55 g Sterile Water for Injection QS mL Total Volume 2200 mL Additives Sodium Chloride 90 mEq Sodium Acetate 30 mEq Potassium Chloride 60 mEq Potassium Phosphate 20 mEq Calcium Gluconate 8 mEq Magnesium Sulfate 12 mEq Regular Insulin 0 units Famotidine 0 mg Multivitamins 1 std dose Trace Elements 1 std dose Thiamine 100 mg Folic Acid 1 mg Ascorbic Acid 0 mg Pharmacy will continue to follow and monitor daily Thank you Avelino Person, PharmD, [facility] Gregorio Person Jul 06, 2016 16:10
[2016-07-06 16:44] VITALS: BP 152/69; PULSE 74; RESP 16; O2SAT 97
--- NOTE | 2016-07-06 18:47 | NUR ---
Progress Patient up with sba to bathroom very little stool from colostomy today. Patient denies pain or nausea. patient has midline incision with sara noted. Patients at bedside on and off t/o day.
[2016-07-06 20:05] VITALS: BP 162/53; PULSE 71; RESP 15; O2SAT 95
[2016-07-06] MEDS: Total Parenteral Nutrition 1 BAG IV SCH (21:00)
[2016-07-06] MEDS: TPN Per Pharmacist XX SCH (21:00)
[2016-07-07] MEDS: Heparin 5,000 Unit/mL Inj SUBQ SCH ×3 (00:38→16:43)
--- NOTE | 2016-07-07 03:43 | NUR ---
Activity Patient ambulating with sitter, several laps around unit. A&O this shift. Uses call light appropriately at this time. Pt started on TPN, no noted ASE. Denial of CP, and SOB. Abdominal discomfort is tolerable.
[2016-07-07 04:45] VITALS: BP 162/70; PULSE 73; RESP 18; O2SAT 98
[2016-07-07 04:51] LABS: BASOPHILS % (AUTO) 0.3 % (0-3); EOSINOPHILS % (AUTO) 2.9 % (0-5); MONOCYTES % (AUTO) 10.8 % (4-12); Mean Corpuscular Hemoglobin 30.3 pg (27.0-35.0); NEUTROPHILS % (AUTO) 65.9 % (40-74); Platelet Count 339 bil/L (150-400)
[2016-07-07 05:21] LABS: Magnesium 1.9 mg/dL (1.6-2.6); Phosphorus 3.4 mg/dL (2.5-4.9)
--- NOTE | 2016-07-07 08:25 | PCM.PHAPRO ---
Progress Date of Service: Jul 07, 2016 SMALL BOWEL OBSTRUCTION TPN per pharmacy Indication: small bowel obstruction Labs: Na: 143 K: 4.1 Cl: 108 CO2: 22 BUN: 20 SCr: 1.41 Glucose: 129 Ca: 8.6 Phos: 3.4 Ma.9 Albumin: 3.1 The following changes have been made to this TPN: - Chloride is trending up and has been high in the past so will decrease sodium chloride to 80 mEq. TPN has been ordered as follows: TPN #9 07-Jul-16 Substrates AMINO ACIDS 125 g DEXTROSE 375 g LIPIDS 55 g Sterile Water for Injection QS mL Total Volume 2200 mL Additives Sodium Chloride 80 mEq Sodium Acetate 30 mEq Potassium Chloride 60 mEq Potassium Phosphate 20 mEq Calcium Gluconate 8 mEq Magnesium Sulfate 12 mEq Regular Insulin 0 units Famotidine 0 mg Multivitamins 1 std dose Trace Elements 1 std dose Thiamine 100 mg Folic Acid 1 mg Ascorbic Acid 0 mg Pharmacy to monitor and order TPN daily. Thank you, David Fu Pharmacist David Fu Jul 07, 2016 08:25
--- NOTE | 2016-07-07 09:27 | DRSVH ---
PROCEDURE: X-RAY ABDOMEN WITH ERECT AND/OR DECUBITUS VIEWS ([id number]) INDICATIONS: F/U SBO TECHNIQUE: 2 views of the abdomen were acquired. COMPARISON: [facility], CR, XR ABD W ERECT + OR DECUB 2 VW, 07/05/2016, 14:13. FINDINGS: Surgical changes and devices: None. Bowel: No pneumoperitoneum. The bowel gas pattern is grossly unchanged to minimally improved with s cattered air-fluid levels and mildly prominent diffuse bowel loops. No definite transition point. No interval change since 07/05/16. Soft tissues: No masses; visualized solid organ contours appear normal in size. No suspicious abdom inal calcifications. Skin sara as before Bones: No suspicious bony abnormalities. Discogenic changes and bilateral hip degeneration IMPRESSION: Overall, unchanged to minimally improved examination since 07/05/16 with redemonstration of scattered a ir-fluid levels and mildly decreased diffuse bowel dilatation. Dictated by: Erick Henry M.D. on 07/07/2016 at 9:23 Approved by: Erick Henry M.D. on 07/07/2016 at 9:25
--- NOTE | 2016-07-07 09:45 | NUR ---
Morning Rounds Staffed patient's case with Dr. Small and case management. Dr. Small stated patient will likely remain for 1-[address] Small if patient is able to take a shower today, he stated he would consult with surgeon before making decision.
[2016-07-07 09:50] VITALS: BP 165/70; PULSE 77; RESP 16; O2SAT 98
[2016-07-07] MEDS: Pantoprazole 4 mg/mL 10 mL Inj IVPUSH SCH (10:22)
[2016-07-07] MEDS: levoFLOXacin Inj 750 MG in IV Premix 1 EACH IV SCH (10:23)
--- NOTE | 2016-07-07 11:10 | PCM.PNSURG ---
Subjective Date of Service: Jul 07, 2016 Visit Information: Lysis of adhesions, Repair of Enterotomies 06/26/2016 Post-Op Day # 11 Date of Admission: Jun 25, 2016 at 13:59 Hospital Day # 13 Subjective: No nausea or vomiting. Some flatus and stool in stoma bag Objective Vital Sign- Last 8 Hours Date Time Temp Pulse Resp B/P Pulse Ox O2 Delivery O2 Flow Rate FiO2 07/07/16 09:50 36.8 77 16 165/70 98 Room Air 07/07/16 04:45 36.4 73 18 162/70 98 Room Air Intake and Output- Last 8 Hour 07/07/16 Cumulative From/Thru 07:00 06/25/16 10:23 - 07/07/16 05:53 Intake Total 2438 ml 27491 ml Output Total 29535 ml Balance 2438 ml 9596 ml Intake Oral 3093 ml IV Total 1847 ml 81708 ml TPN/PPN 591 ml 36811 ml Output Urine Total 40481 ml Stool Total 540 ml Gastric Drainage Total 500 ml Drainage Total 340 ml # Voids 32 Abdomen: Soft, Other (Incision C/D/I) Result Diagram: 07/07/16 0444 07/07/16 0444 Assessment & Plan Impression Doing okay Problems: Plan Try full liquid diet Continue TPN Ambulate Minimize night time interruptions Mya Ayala MD Jul 07, 2016 11:10
--- NOTE | 2016-07-07 12:10 | PCM.PNMED ---
Subjective Date of Service Jul 07, 2016 Subjective no overnight event AXR this AM showed unchanged SBo started on TPN denied cough, sputum, SOB Exam Vital Signs Vital Sign - Last Date Time Temp Pulse Resp B/P Pulse Ox O2 Delivery O2 Flow Rate FiO2 07/07/16 10:15 Supplement Oxygen 07/07/16 09:50 36.8 77 16 165/70 98 07/03/16 05:16 2.00 Intake and Output 07/06/16 07/06/16 07/07/16 Cumulative From/Thru 15:00 23:00 07:00 06/25/16 10:23 - 07/07/16 05:53 Intake Total 0 ml 2438 ml 81161 ml Output Total 1325 ml 04042 ml Balance -1325 ml 2438 ml 9596 ml Intake Oral 0 ml 3093 ml IV Total 1847 ml 23174 ml TPN/PPN 591 ml 99868 ml Output Urine Total 1310 ml 11321 ml Stool Total 15 ml 540 ml Gastric Drainage Total 500 ml Drainage Total 340 ml # Voids 32 Exam NAD, comfortably laying down on the bed no JVD, MMM, no LAD RRR, nl s1, s2 no mrg CTAB, no w,c, S, nontender, healing scare, stools in colostomy bag, no CVAT/suprapubic td warm, no edema, pulses 2/2 IVs and Medications Medications Reviewed: Medications were reviewed in detail Lab and Diagnostics Result Diagram: 07/07/1644307/07/16443 X-Rays, CTs and MRIs X-RAY ACUTE ABDOMINAL SERIES INDICATIONS: abdominal pain, multiple obstructions previously TECHNIQUE: One view chest and two views of the abdomen were acquired. COMPARISON: None. FINDINGS: Surgical changes and devices: None. Chest: Lungs are clear. Mild biapical pleural thickening. Pleural calcifications right lateral chest wall. Mild eventration right hemidiaphragm. Heart size is normal. No pleural effusions. No pneumoperitoneum. Abdomen: Bowel gas pattern shows multiple stairstep air fluid levels within mildly dilated small bowel consistent with partial obstruction. There is air and stool within the colon. No suspicious calcifications. Visualized solid organ contours appear normal. Vascular calcifications. Bones: No suspicious bony lesions. Compression fractures are present in T12, L1 and L4. IMPRESSION: 1. No acute cardiopulmonary abnormality. 2. Partial small bowel obstruction. 3. 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 Assessment & Plan Patient is a 75 year old male with a past medical history of Colon Cancer status post partial colectomy with colostomy placement, Hyperlipidemia, and GERD who is admitted to hospital for Partial Small Bowel Obstruction. acute, active #Partial Small Bowel Obstruction, POA, s/p surgery 06/26, repeat AXR 07/05 showed SBO. 07/07 still persistent - postop management, pain control, diet per surgery team,clinically not ready for d/c, started TPN per surgery 07/06 -O2 supplement as needed, aggressive use of incentive spirometer, encouraged with patient as long as pain is tolerable. #Sepsis with HR/fever/RR, labs showed bandemia, elevated procalcitonin, likely due to HCAP >48hrs from adm, developed post to operatively, -infectious w/u so far ngtd BCX 2sets, empirically started zosyn 06/28-07/04, clinically improved, switched to Levaquin po 07/05 to finish 14days course. -O2 supplement as needed -trends fever curve, wbc, --titus d/sarah 06/30, UA unremarkable #CKD2, POA, Cr wax and wane, worse, avoid renal toxin, adjust meds renally, stopped IVF again given improvement, good oral intake #acute hospital delirium, developed since adm, in the setting sepsis, postop, age, underlying cognitive dysfunction, opioid. -Seroquel 25mg qhs prn, 1:1 observation as needed, aggressive reorientation, family at the beside, enough sun exposure during the day #hypertensive episode, no hx of HTN, wax and wane, likely related to acute stress, post op pain, delirium, will gently control with hydralazine prn if > 180s chronic, stable 2. Hyperlipdemia, likely to resume statin once cleared for diet. 3. GERD, continue Pantoprazole 40 mg IV daily and switch to PO when he can take PO again 4. Hx of Colon Cancer, CEA mildly elevated. CODE STATUS: reverted to Full Code diet:NPO now, defer to surgery. dispo:pending, likely 1-2days VTE Mechanical Devices: Intermittant Pneumatic CD Time spent 35min Darrion Small MD Jul 07, 2016 12:10
[2016-07-07 15:03] VITALS: BP 113/64; PULSE 83; RESP 19; O2SAT 98
--- NOTE | 2016-07-07 17:15 | NUR ---
Staple Removal Paged Dr. Ayala at [phone], made him aware that all of patient's sara have been removed except for 4, but the remaining sara are present in such a way that the sara are actually meeting and unable to remove without causing severe pain. stated he would check on this patient later when he is out of surgery.
[2016-07-07 19:35] VITALS: BP 138/65; PULSE 81; RESP 18; O2SAT 99
[2016-07-07] MEDS: Total Parenteral Nutrition 1 BAG IV SCH (22:07)
[2016-07-07] MEDS: TPN Per Pharmacist XX SCH (22:09)
[2016-07-08] MEDS: Heparin 5,000 Unit/mL Inj SUBQ SCH ×3 (00:13→16:30)
--- NOTE | 2016-07-08 04:18 | NUR ---
ACTIVITY; ambulated in hallway with sitter at beginning of shift. Day shift rn stated came and removed the 4 sara that were left. TPN infusing at 91.7cc/hr.
[2016-07-08 05:01] LABS: BASOPHILS % (AUTO) 0.3 % (0-3); EOSINOPHILS % (AUTO) 2.7 % (0-5); MONOCYTES % (AUTO) 9.9 % (4-12); NEUTROPHILS % (AUTO) 65.6 % (40-74); Platelet Count 356 bil/L (150-400)
[2016-07-08 05:27] LABS: Phosphorus 3.6 mg/dL (2.5-4.9)
--- NOTE | 2016-07-08 05:41 | NUR ---
BLOOD; drawn from picc without problems.
--- NOTE | 2016-07-08 07:46 | PCM.PHAPRO ---
Progress Date of Service: Jul 08, 2016 SMALL BOWEL OBSTRUCTION TPN per pharmacy Indication: small bowel obstruction Labs: Na: 144 K: 4.2 Cl: 108 CO2: 20 BUN: 30 SCr: 1.45 Glucose: 125 Ca: 8.3 Corrected Calcium: 9.1 Phos: 3.6 Ma.0 Albumin: 3.0 The following changes have been made to this TPN: - Will decrease sodium chloride to 70 mEq. - Labs are stable so no further changes. TPN has been ordered as follows: Substrates AMINO ACIDS 125 g DEXTROSE 375 g LIPIDS 55 g Sterile Water for Injection QS mL Total Volume 2200 mL Additives Sodium Chloride 70 mEq Sodium Acetate 30 mEq Potassium Chloride 60 mEq Potassium Phosphate 20 mEq Calcium Gluconate 8 mEq Magnesium Sulfate 12 mEq Regular Insulin 0 units Famotidine 0 mg Multivitamins 1 std dose Trace Elements 1 std dose Thiamine 0 mg Folic Acid 0 mg Ascorbic Acid 0 mg David Fu Jul 08, 2016 07:46
[2016-07-08 08:07] VITALS: BP 124/69; PULSE 74; RESP 14; O2SAT 98
[2016-07-08] MEDS: Pantoprazole 4 mg/mL 10 mL Inj IVPUSH SCH (08:31)
[2016-07-08] MEDS: levoFLOXacin Inj 750 MG in IV Premix 1 EACH IV SCH (08:32)
--- NOTE | 2016-07-08 10:53 | PCM.PNSURG ---
Subjective Date of Service: Jul 08, 2016 Visit Information: Lysis of adhesions, Repair of Enterotomies 06/26/2016 Post-Op Day # 12 Date of Admission: Jun 25, 2016 at 13:59 Hospital Day # 14 Subjective: Tolerated full liquid diet Objective Vital Sign- Last 8 Hours Date Time Temp Pulse Resp B/P Pulse Ox O2 Delivery O2 Flow Rate FiO2 07/08/16 08:07 36.6 74 14 124/69 98 Room Air Intake and Output- Last 8 Hour 07/08/16 Cumulative From/Thru 07:00 06/25/16 10:23 - 07/08/16 05:39 Intake Total 891 ml 57061 ml Output Total 1010 ml 34793 ml Balance -119 ml 8651 ml Intake Oral 0 ml 3764 ml IV Total 891 ml 83353 ml TPN/PPN 95010 ml Output Urine Total 660 ml 67762 ml Stool Total 350 ml 900 ml Gastric Drainage Total 500 ml Drainage Total 340 ml # Voids 37 Abdomen: Soft, Other (Incision C/D/I. Stoma with flatus and stool) Result Diagram: 07/08/16 0450 07/08/16 0450 Assessment & Plan Impression Doing well Problems: Plan Soft diet Ambulate Wean off TPN Plan discharge tomorrow Mya Ayala MD Jul 08, 2016 10:53
[2016-07-08 12:30] VITALS: BP 103/60; PULSE 80; RESP 16; O2SAT 100
--- NOTE | 2016-07-08 13:03 | PCM.PNMED ---
Subjective Date of Service Jul 08, 2016 Subjective Patient was examined at bedside today. Patient denies any chest pain, shortness of breath, nausea, vomiting, diarrhea. Patient states that he is improving today and feels that he is able to advance his diet. states that the patient did not have any sundowning last night. Exam Vital Signs Vital Sign - Last Date Time Temp Pulse Resp B/P Pulse Ox O2 Delivery O2 Flow Rate FiO2 07/08/16 08:07 36.6 74 14 124/69 98 Room Air 07/03/16 05:16 2.00 Intake and Output 07/07/16 07/07/16 07/08/16 Cumulative From/Thru 15:00 23:00 07:00 06/25/16 10:23 - 07/08/16 05:39 Intake Total 0 ml 1984 ml 891 ml 43863 ml Output Total 1960 ml 850 ml 1010 ml 23862 ml Balance -1960 ml 1134 ml -119 ml 8651 ml Intake Oral 0 ml 671 ml 0 ml 3764 ml IV Total 160 ml 891 ml 15700 ml TPN/PPN 1153 ml 35182 ml Output Urine Total 1950 ml 850 ml 660 ml 24668 ml Stool Total 10 ml 350 ml 900 ml Gastric Drainage Total 500 ml Drainage Total 340 ml # Voids 5 37 Exam Physical Exam: GEN: Patient was awake, alert, responding appropriately to questions HEENT: PERRLA, EOMI, Neck soft supple, trachea midline, nomocephalic/atraumatic CV: +S1/S2, RRR, positive systolic murmur auscultated Respiratory: CTAB, no wheezes, rales, rhonchi GI: +bowel sounds x4, soft, compressible, non TTP, colostomy in place positive gas output, sara in place non-erythematous or edematous, surgical site is clean dry and intact EXT: no c/c/e Neuro: CN II-XII grossly intact Psych: mood and affect were appropriate IVs and Medications Medications Reviewed: Medications were reviewed in detail Lab and Diagnostics Result Diagram: 07/08/16 04507/08/16 0450 X-Rays, CTs and MRIs X-RAY ACUTE ABDOMINAL SERIES INDICATIONS: abdominal pain, multiple obstructions previously TECHNIQUE: One view chest and two views of the abdomen were acquired. COMPARISON: None. FINDINGS: Surgical changes and devices: None. Chest: Lungs are clear. Mild biapical pleural thickening. Pleural calcifications right lateral chest wall. Mild eventration right hemidiaphragm. Heart size is normal. No pleural effusions. No pneumoperitoneum. Abdomen: Bowel gas pattern shows multiple stairstep air fluid levels within mildly dilated small bowel consistent with partial obstruction. There is air and stool within the colon. No suspicious calcifications. Visualized solid organ contours appear normal. Vascular calcifications. Bones: No suspicious bony lesions. Compression fractures are present in T12, L1 and L4. IMPRESSION: 1. No acute cardiopulmonary abnormality. 2. Partial small bowel obstruction. 3. 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 Assessment & Plan Patient is a 75 year old male with a past medical history of Colon Cancer status post partial colectomy with colostomy placement, Hyperlipidemia, and GERD who is admitted to hospital for Partial Small Bowel Obstruction. Partial small bowel obstruction present on admission status post surgery 06/26/16 -Repeat abdominal x-ray on 07/15/2016 showed SBO and on 07/07 SBO was still present -Postop management, pain control -Decreased TPN today which was started on 07/06/2016 -Advance diet to soft mechanical as per recommendations of general surgery -O2 supplement when necessary -Continue use of incentive spirometer 10 times an hour Sepsis with fever labs showed bandemia, elevated procalcitonin, likely due to HCAP >48hrs from adm, developed post to operatively (improved) -Blood cultures negative 2 -Treated empirically with Zosyn from 06/28-07/04 -Continue Levaquin for a full 14 day course of Levaquin was started on 2016 -O2 supplement when necessary -UA was unremarkable Cayla oliva DC'd on 06/30 -Continue to monitor for fever and elevated white count CKD2, POA -Cr wax and wane creatinine is currently 1.45 yesterday was 1.41 -Continue to avoid renal toxic drugs -IVF was stopped yesterday we will continue to hold at this time and see how the patient does. The patient currently has good oral intake in his diet is being increased as per surgery will continue to monitor and make adjustments as needed acute hospital delirium (improved ) -Developed since adm, in the setting sepsis, postop, age, underlying cognitive dysfunction, opioid. -Seroquel 25mg qhs prn, 1:1 observation as needed, aggressive reorientation, family at the beside, enough sun exposure during the day -Continue good sleep hygiene as this seems to have improved the patient's sundowning hypertensive episode (no hx of HTN) -Patient's blood pressure is currently 124/69 elevated pressures may be secondary to acute stress/postop pain/delirium -When necessary hydralazine if blood pressure is greater than 180 Hyperlipidemia (chronic stable) -Continue statin once patient is back on full diet GERD (chronic stable) -Continue pantoprazole 40 mg IV daily we will most likely switch to by mouth tomorrow History of colon cancer -CEA mildly elevated Diet -Currently on liquid diet will be increased to soft mechanical we will continue to follow recommendations from surgery CODE STATUS: reverted to Full Code Dispo: Patient seems to be progressing. Patient still currently on TPN however the TPN has been decreased. We will do a trial of soft foods today and possibly discontinue the use of TPN tomorrow. Patient may be discharged in the next 1-2 days pending surgery recommendations and patient's ability to tolerate a diet. VTE Mechanical Devices: Intermittant Pneumatic CD Time spent Greater than 35 minutes Beatrice Tom DO Jul 08, 2016 13:03
--- NOTE | 2016-07-08 13:36 | NUR ---
AMBULATION/DIET Patient ambulated one 300ft this am on RA with no shortness of breath. Diet advanced to soft and patient had 50% of lunch (cottage cheese, noodle soup, fruit cup) tolerated well, denies nausea. Patient denies pain, incision sit c/d/i, VSS, last BP at 1230 was 109/68. TPN rate decreased 1/2 to 45mls/hr, this will be last TPN bag per Dr Ashley mohan. Cr 1.45. Anticipate d/c home one to two days.
--- NOTE | 2016-07-08 14:55 | NUR ---
FLOR Signed PURVI Mckeon
--- NOTE | 2016-07-08 15:32 | NUR ---
Social Work Note: Readiness for Discharge Data& Assessment: Per MD pt is getting closer to being medically ready for discharge. SW met with pt and pt at bedside to confirm discharge plan and assess for any unmet needs. Pt transporting pt home. Pt is waiting to fully advance his diet from TPN before he can discharge home. Pt is ambulating at baseline in his room with his FWW. Pt and pt deny any other needs. No other discharge needs identified at this time. SW to continue to follow if any needs arise. Plan: Anticipated discharge home via POV when medically ready. Pt and pt deny any other needs. No other discharge needs identified at this time. SW to continue to follow if any needs arise. PURVI Mckeon
[2016-07-08 16:30] VITALS: PULSE 78; RESP 16; O2SAT 97
[2016-07-08 20:31] VITALS: BP 150/72; PULSE 78; RESP 16; O2SAT 100
[2016-07-08] MEDS: TPN Per Pharmacist XX SCH (20:35)
[2016-07-08] MEDS: Total Parenteral Nutrition 1 BAG IV SCH ×2 (20:35→20:56)
--- NOTE | 2016-07-08 21:31 | NUR ---
GI; tpn d/sarah at 2100 and picc line flushed. "I ate pretty well so I hope I get to go home and be in my own bed tomorrow." pt stated.
[2016-07-09] MEDS: Heparin 5,000 Unit/mL Inj SUBQ SCH ×3 (01:11→17:00)
[2016-07-09 05:57] VITALS: BP 122/65; PULSE 80; RESP 18; O2SAT 98
--- NOTE | 2016-07-09 06:08 | NUR ---
LABS; drawn without problems.
[2016-07-09 06:16] LABS: Mean Corpuscular Hemoglobin 29.1 pg (27.0-35.0); Mean Corpuscular Volume 92.8 fL (81-100)
[2016-07-09 06:35] LABS: Phosphorus 3.9 mg/dL (2.5-4.9)
[2016-07-09] MEDS: Pantoprazole 4 mg/mL 10 mL Inj IVPUSH SCH (07:34)
[2016-07-09] MEDS: levoFLOXacin Inj 750 MG in IV Premix 1 EACH IV SCH (07:41)
--- NOTE | 2016-07-09 14:43 | NUR ---
NUTRITION FOLLOW-UP: ASSESS: 75 yo M admitted for partial SBO, s/p enterolysis and repair of small bowel enterotomy 2. Pt was on a general diet and TPN was off but pt began to experience some n/v and was made NPO so TPN was re-order on 07/06. Pt diet has been advanced again and TPN was discontinued on 07/08. PMHX: Colon, Ca, HLD, GERD LABS: Reviewed. BUN 31, Cr 1.50, Alb 3.5. MEDS: Reviewed. GI: 50 ml stool output via colostomy 07/09 CURRENT WTS: 79.9 kg, admit wt: 81.8 kg (stated) DIET: Soft. PO 10-75% of meals. EST. NEEDS: Colon Ca Kcals: 9295-8234 kcal/day (25-30 kcal/kg) Pro: 100-130 g/day (1.2-1.5 g/kg) NUTRITION DIAGNOSIS: 1.) Inadequate oral intake related to decreased ability to consume sufficient energy and altered GI function as evidenced by current NPO status and need for nutrition support due to decreased bowel function. --IMPROVING, PT OFF TPN AND DIET ADV TO SOFT. NUTRITION INTERVENTION: 1.) Will add ensure supplements TID with meals to encourage increased po intake. MONITOR / EVAL: PO intake, diet tolerance, labs, GI status, weight, nutrition status. Will continue to monitor per high nutrition risk guidelines.
[2016-07-09 15:43] VITALS: BP 115/55; PULSE 79; RESP 17; O2SAT 99
--- NOTE | 2016-07-09 16:33 | PCM.DIMED ---
Discharge Instructions Date of Service Jul 09, 2016 Dates of Hospitalization Jun 25, 2016 at 13:59 Discharge Diagnosis Discharge Diagnosis Partial small bowel obstruction s/p surgery 06/26/16 Sepesis CKD2 Hypertension Hyperlipidemia GERD Diet Other (soft mechanical diet) Activity Other (please follow the recommendations from surgery on your activities) Call your provider Fever or Chills, Shortness of breath, Bleeding, Chest pain, Excessive diarrhea Patient Instructions If you have any further questions about ostomy care unit may follow-up with the wound care clinic as suggested by Dr. Robbins Follow-up plan Follow-up in the surgery clinic on July 09 for staple removal. Follow-up Provider: Jose Duong MD Follow-up with PCP in: 1 week Beatrice Tom DO Jul 09, 2016 16:33
[2016-07-09] MEDS ORDERED: LEVO750T39 PO (16:38)
--- NOTE | 2016-07-09 16:45 | PCM.DC.MED ---
Discharge Summary Date of Service Jul 09, 2016 Dates of Hospitalization Date of Hospital Admission Jun 25, 2016 at 13:59 Date of Discharge: Jul 09, 2016 Providers: Admitting Physician: Kamar Maurer MD Primary Care Physician: Jose Duong MD Attending Physician: Kamar Maurer MD Diagnosis at Time of Discharge Diagnosis at Time of Discharge Partial small bowel obstruction s/p surgery 06/26/16 Sepesis CKD2 Hypertension Hyperlipidemia GERD Consultations General surgery Dr. Robbins Procedures XRay, CTs & MRIs X-RAY ACUTE ABDOMINAL SERIES INDICATIONS: abdominal pain, multiple obstructions previously TECHNIQUE: One view chest and two views of the abdomen were acquired. COMPARISON: None. FINDINGS: Surgical changes and devices: None. Chest: Lungs are clear. Mild biapical pleural thickening. Pleural calcifications right lateral chest wall. Mild eventration right hemidiaphragm. Heart size is normal. No pleural effusions. No pneumoperitoneum. Abdomen: Bowel gas pattern shows multiple stairstep air fluid levels within mildly dilated small bowel consistent with partial obstruction. There is air and stool within the colon. No suspicious calcifications. Visualized solid organ contours appear normal. Vascular calcifications. Bones: No suspicious bony lesions. Compression fractures are present in T12, L1 and L4. IMPRESSION: 1. No acute cardiopulmonary abnormality. 2. Partial small bowel obstruction. 3. 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 Invasive Procedures Lysis of adhesions, Repair of Enterotomies 06/26/2016 Brief History Patient is a 75 year old male with a past medical history of Colon Cancer status post partial colectomy, Hyperlipidemia, and GERD. He presents to the ER complaining of a 1 day hx of worsening abdominal pain and nausea with vomiting. Pt states he developed diarrhea approximately 3 days ago. He states he has been having significant output from his colostomy over the last 3 days. Last night, he irrigated his colostomy, and this morning he awoke with diffuse abdominal cramping. He later developed nausea with vomiting. He states he has not had any output from his colostomy today. He has not passed any gas into his colostomy today. Pt states he has no appetite at this time. He states he has a hx of multiple bowel obstructions in the past which have required surgery at [facility] in [place]. Pt has no other complaints or concerns at this time. Hospital Course Patient is a 75 year old male with a past medical history of Colon Cancer status post partial colectomy with colostomy placement, Hyperlipidemia, and GERD who is admitted to hospital for Partial Small Bowel Obstruction. Patient was admitted on 06/25/2016 for small bowel obstruction and sepsis. The patient underwent surgery on 06/26/2016 for lysis of adhesions and repair of enterotomies. Patient is now progressing well and is having good ostomy output as well as tolerating a soft mechanical diet. The patient will be discharged home for a full course of antibiotic therapy on Levaquin 750 mg by mouth for the next 10 days. The patient was also treated empirically from June 28 to July 04 with Zosyn. The patient seems to be doing well with blood cell count is now normal as well as his lactic acid. The patient and his are both concerned about cross-contamination with the patient's ostomy care and recent abdominal surgery. It has been a complaint to the patient that he should continue regular ostomy care and may put up plastic shielding around the surgical incision in order to prevent cross contamination. However the patient has been instructed to follow-up with the wound care clinic for further instructions. The patient will follow-up with general surgery for removal of sara. The patient did have a brief bout of encephalopathy/acute hospital delirium which seemed to improve with a good night sleep. Patient did not respond well with Seroquel however when the patient sleep hygiene was corrected the encephalopathy resolved. Patient is doing well and being discharged home in stable condition. Partial small bowel obstruction present on admission status post surgery 06/26/16 -Repeat abdominal x-ray on 07/15/2016 showed SBO and on 07/07 SBO was still present -Postop management, pain control -Decreased TPN today which was started on 07/06/2016 -Advance diet to soft mechanical as per recommendations of general surgery -O2 supplement when necessary -Continue use of incentive spirometer 10 times an hour Sepsis with fever labs showed bandemia, elevated procalcitonin, likely due to HCAP >48hrs from adm, developed post to operatively (improved) -Blood cultures negative 2 -Treated empirically with Zosyn from 06/28-07/04 -Continue Levaquin for a full 14 day course of Levaquin was started on 2016 -O2 supplement when necessary -UA was unremarkable Cayla oliva DC'kira on 06/30 -Continue to monitor for fever and elevated white count CKD2, POA -Cr wax and wane creatinine is currently 1.45 yesterday was 1.41 -Continue to avoid renal toxic drugs -IVF was stopped yesterday we will continue to hold at this time and see how the patient does. The patient currently has good oral intake in his diet is being increased as per surgery will continue to monitor and make adjustments as needed acute hospital delirium (improved ) -Developed since adm, in the setting sepsis, postop, age, underlying cognitive dysfunction, opioid. -Seroquel 25mg qhs prn, 1:1 observation as needed, aggressive reorientation, family at the beside, enough sun exposure during the day -Continue good sleep hygiene as this seems to have improved the patient's hypertensive episode (no hx of HTN) -Patient's blood pressure is currently 124/69 elevated pressures may be secondary to acute stress/postop pain/delirium -When necessary hydralazine if blood pressure is greater than 180 Hyperlipidemia (chronic stable) -Continue statin once patient is back on full diet GERD (chronic stable) -Continue pantoprazole 40 mg IV daily we will most likely switch to by mouth tomorrow History of colon cancer -CEA mildly elevated Diet -Currently on liquid diet will be increased to soft mechanical we will continue to follow recommendations from surgery CODE STATUS: reverted to Full Code Exam Vital Signs (Last) Date Time Temp Pulse Resp B/P Pulse Ox O2 Delivery O2 Flow Rate FiO2 07/09/16 15:43 36.6 79 17 115/55 99 Room Air 07/03/16 05:16 2.00 Exam Physical Exam: GEN: Patient was awake, alert, responding appropriately to questions HEENT: PERRLA, EOMI, Neck soft supple, trachea midline, nomocephalic/atraumatic CV: +S1/S2, RRR, no murmur auscultated Respiratory: CTAB, no wheezes, rales, rhonchi GI: +bowel sounds x4, soft, compressible, mild TTP near surgical incision, surgical incision clean dry and intact, ostomy intact with good output EXT: no c/c/e Neuro: CN II-XII grossly intact Psych: mood and affect were appropriate Test 06/25/16 11:40 06/28/16 04:35 06/28/16 10:55 06/30/16 05:50 Prothrombin Time 10.2sec (8.1-12.5) Prothromb Time International Ratio 0.95ratio Lipase 47U/L (13-60) Carcinoembryonic Antigen 5.4ng/mL (0.0-4.7) Band Neutrophils % 7% (1-5) Lactic Acid Level 1.3mmol/L (0.4-2.0) Triglycerides Level 136mg/dL (0-149) Test 07/01/16 06:35 07/01/16 13:19 07/08/16 04:50 07/09/16 06:00 Procalcitonin 1.43ng/mL (0.00-0.08) Urine Color Yellow (YELLOW) Urine Appearance Clear (CLEAR,HAZY) Urine pH 6.0 (5.0-8.0) Urine Specific Murdock 1.020 (1.003-1.035) Urine Protein Negativemg/dL (NEG,TRACE) Urine Glucose (UA) Negativemg/dL (NEGATIVE) Urine Ketones Negativemg/dL (NEGATIVE) Urine Occult Blood Trace (NEGATIVE) Urine Nitrite Negative (NEGATIVE) Urine Bilirubin Negative (NEGATIVE) Urine Urobilinogen Normalmg/dL (NORMAL) Urine Leukocyte Esterase Negative (NEGATIVE) Urine RBC 0-2/hpf (0-2) Urine WBC 0-5/hpf (0-5) Urine Epithelial Cells None/hpf (NONE-MOD) Urine Crystals None seen (NONE SEEN) Urine Bacteria None/hpf (NONE-FEW) Urine Hyaline Casts None/lpf (NONE) Urine Granular Casts None seen (NONE SEEN) Urine Waxy Casts None seen (NONE SEEN) Urine Red Blood Cell Casts None seen (NONE SEEN) Urine White Blood Cell Casts None seen (NONE SEEN) Urine Mucus None seen (None Seen) Urine Trichomonas None seen (NONE SEEN) Urine Yeast None (NONE SEEN) Urinalysis Comment None Urine Culture Reflexed Not indicated Neutrophils (%) (Auto) 65.6% (40-74) Lymphocytes (%) (Auto) 21.1% (14-46) Monocytes (%) (Auto) 9.9% (4-12) Eosinophils (%) (Auto) 2.7% (0-5) Basophils (%) (Auto) 0.3% (0-3) White Blood Count 8.4th/mm3 (3.8-10.1) Red Blood Count 3.33mil/mm3 (4.40-5.80) Hemoglobin 9.7g/dL (13.8-17.2) Hematocrit 30.9% (41.0-50.0) Mean Corpuscular Volume 92.8fL (81-100) Mean Corpuscular Hemoglobin 29.1pg (27.0-35.0) Mean Corpuscular Hemoglobin Concent 31.4% (32.0-37.0) Red Cell Distribution Width 15.2% (12.3-15.4) Platelet Count 379bil/L (150-400) Sodium Level 140mEq/L (134-144) Potassium Level 4.9mEq/L (3.5-5.2) Chloride Level 107mEq/L (97-108) Carbon Dioxide Level 18mmol/L (18-29) Blood Urea Nitrogen 31mg/dL (8-27) Creatinine 1.50mg/dL (0.76-1.27) Estimat Glomerular Filtration Rate 49mL/min (>59) Glucose Level 91mg/dL (60-99) Calcium Level 8.9mg/dL (8.5-10.1) Phosphorus Level 3.9mg/dL (2.5-4.9) Magnesium Level 2.0mg/dL (1.6-2.6) Total Bilirubin 0.4mg/dL (0.0-1.2) Aspartate Amino Transf (AST/SGOT) 40U/L (0-50) Alanine Aminotransferase (ALT/SGPT) 47U/L (0-44) Alkaline Phosphatase 101U/L (25-160) Total Protein 7.1g/dL (6.4-8.4) Albumin 3.5g/dL (3.4-5.0) Discharge Medications Discharge Medications Atorvastatin Calcium (Atorvastatin Calcium) 20 Mg Tablet 20 MG PO DAILY ( Reported) Calcium Carbonate (Calcium) 600 Mg Tablet 600 MG PO BID (Reported) Cholecalciferol (Vitamin D3) (Vitamin D3) 1,000 Unit Tab.chew 1,000 UNIT PO BID (Reported) Glucosamine (Glucosamine) 500 Mg Tablet 500 MG PO BID (Reported) Levofloxacin (Levofloxacin) 750 Mg Tablet 750 MG PO DAILY Prescribed by: JESSICA SMALLWOOD DO Magnesium Oxide (Magnesium) 250 Mg Tablet 250 MG PO BID (Reported) Multivit-Min/FA/Lycopen/Lutein (Centrum Silver Men Tablet) 300 Mcg-600 Mcg-300 Mcg Tablet 1 EACH PO DAILY (Reported) Doerun-3S/Dha/Epa/Fish Oil (Doerun Power 1,050 mg Softgel) 1,050 Mg Capsule 1,050 MG PO BID (Reported) Omeprazole (Omeprazole) 20 Mg Capsule.dr 20 MG PO DAILY (Reported) As needed Loperamide HCl (Imodium A-D) 2 Mg Capsule 2 MG PO DAILY PRN PRN For Diarrhea or Loose Stool (Reported) Followup Plan Follow-up plan Follow-up in the surgery clinic on July 09 for staple removal. Discharge Diet: Other (soft mechanical diet) Discharge Activity: Other (please follow the recommendations from surgery on your activities) Patient Instructions If you have any further questions about ostomy care unit may follow-up with the wound care clinic as suggested by Dr. Robbins Follow-up Provider: Jose Duong MD Follow-up with PCP in: 1 week Time spent Greater than 35 minutes copies to: Jose Duong MD, Precious L DO Jul 09, 2016 16:45
--- NOTE | 2016-07-09 19:43 | NUR ---
Discharge Pt. discharged to home at 1815 in stable condition. Pt. accompanied by . Colostomy bag changed prior to discharge, picc line dc'd per ACQUISITION ADVISOR, and all belongings, instructions and prescriptions sent with pt. No questions or concerns at this time.
== END 2016-07-09 18:15 | disposition home or self-care (01) | DRG 335 ==
LOC: SED 10:17 → OBSVTOIN 13:59 → OSC 13:59
PROVIDERS: ADMIT Family Medicine; ATTEND Family Medicine
PROC: 0DN80ZZ Release Small Intestine, Open Approach (ICD-10-PCS; principal; 2016-06-26 11:30)
DX: K56.5 Intestinal adhesions [bands] with obstruction (postinfection) (principal); J18.9 Pneumonia, unspecified organism; A41.9 Sepsis, unspecified organism; F05 Delirium due to known physiological condition; E78.5 Hyperlipidemia, unspecified; K21.9 Gastro-esophageal reflux disease without esophagitis; Z93.3 Colostomy status; Z53.31 Laparoscopic surgical procedure converted to open procedure; N18.2 Chronic kidney disease, stage 2 (mild); R03.0 Elevated blood-pressure reading, without diagnosis of hypertension

== ENCOUNTER 2016-10-24 01:50 | Emergency (ER) | payer MEDICARE ==
[~2016-10-24] VITALS: Ht 167.6 cm; Wt 82.7 kg
[~2016-10-24 01:50] MED LIST: ATOR20TA65 PO; CALC600T12 PO; CHOL10008 PO; GLUC500T12 PO; LEVO750T39 PO; LOPE-147 PO; MAGN250T29 PO; MULT-1104 PO; OMEG1050 PO; OMEP20CA11 PO
[2016-10-24 01:54] VITALS: BP 165/71; PULSE 87; RESP 16; O2SAT 95
--- NOTE | 2016-10-24 02:07 | ED.REPORT ---
HPI-Abd Pain M 40 and Over Date of Service Oct 24, 2016 ED Provider: Dr. Perez 76 y/o male with a hx of colostomy, multiple bowel obstructions requiring surgery and CKD stage III presents to the ED complaining of waxing and waning abdominal pain, onset yesterday. Associated sx include fever, confusion, dysuria and vomiting. He denies diarrhea and nausea in the ED. is very involved in the care of her small child who had a gastroenteritis virus. herself was only minimally ill with some mild nausea but no vomiting. Only contact of our patient with the child was via the . Nursing Notes Stated Complaint: VOMITING, FEVER Chief Complaint: Male Abdominal Pain Nursing Notes Reviewed: Yes Allergies: Coded Allergies: codeine (Verified Adverse Reaction, Unknown, rash, 06/25/16) lansoprazole (Verified Adverse Reaction, Unknown, rash, 06/25/16) Scheduled Atorvastatin Calcium (Atorvastatin Calcium) 20 Mg Tablet 20 MG PO DAILY Calcium Carbonate (Calcium) 600 Mg Tablet 600 MG PO BID Cholecalciferol (Vitamin D3) (Vitamin D3) 1,000 Unit Tab.chew 1,000 UNIT PO BID Glucosamine (Glucosamine) 500 Mg Tablet 500 MG PO BID Levofloxacin (Levofloxacin) 750 Mg Tablet 750 MG PO DAILY Magnesium Oxide (Magnesium) 250 Mg Tablet 250 MG PO BID Multivit-Min/FA/Lycopen/Lutein (Centrum Silver Men Tablet) 300 Mcg-600 Mcg-300 Mcg Tablet 1 EACH PO DAILY Douglas-3S/Dha/Epa/Fish Oil (Douglas Power 1,050 mg Softgel) 1,050 Mg Capsule 1,050 MG PO BID Omeprazole (Omeprazole) 20 Mg Capsule.dr 20 MG PO DAILY Ondansetron ODT (Ondansetron ODT) 8 Mg Tab.rapdis 8 MG PO QID Scheduled PRN Loperamide HCl (Imodium A-D) 2 Mg Capsule 2 MG PO DAILY PRN PRN For Diarrhea or Loose Stool General Time Seen by MD: 02:07 Chief Complaint Abdominal pain Hx Obtained From: Patient Arrived By: Walk-in Sudden in Onset?: Yes Onset Occurred: Yesterday Symptom Duration: Since onset Location: : Diffuse Quality: Painful Radiation: : Does not radiate Severity: Current: Moderate Severity: Maximum: Moderate Recent Healthcare: No recent doctor visit Similar Sx Previous: No Past Medical History Past Medical History Notes: Past Medical History Colostomy Arthritis Asthma Atrial fibrillation Cancer, colon carotid stenosis carotid surgery High cholesterol Hypertension Osteoporosis Stage 3 Kidney Disease thoracolumbar spine traumatic compression fractures Past Surgical History Colostomy X2 Abdominal Surgerys in 2001 and 2006 fo bowel obstruction Reports: Appendectomy Smoking History Former Smoker Social History Other Social History: Good social support, Ambulatory Status Independent Review of Systems Constitutional: Reports: Fever GI: Reports: Abdominal pain, Diarrhea, Nausea, Vomiting Male: Reports Dysuria Complete sys rev & neg: except as marked. Neurologic: Reports: Confusion Physical Exam Initial Vital Signs Vital Signs (First) Date Time Temp Pulse Resp B/P Pulse Ox O2 Delivery O2 Flow Rate FiO2 10/24/16 01:54 38.0 87 16 165/71 95 Room Air Initial VS: Reviewed Head / Eyes: Atraumatic, Normocephalic Neck: Supple, Non-tender, Full range of motion Extremities: Vascular intact, Neuro intact, No swelling, No tenderness Skin: Warm, Dry, No cyanosis Neurologic: Alert, Oriented, Nonfocal General/Constitutional: Awake, Cooperative Distress / Hydration: Positive: Dehydration mild Demented and mildly confused Respiratory / Chest: Atraumatic, Breath sounds NL, Breath sounds = bilat, No respiratory distress, No rales, No rhonchi, No wheezing Cardiovascular: Heart rate NL, Regular rhythm, Heart sounds NL, No gallop, No murmurs, No rubs Abdomen: Atraumatic, Soft, Non-tender, No guarding, No rebound, BS normoactive Colostomy in mid abdomen Back: Atraumatic, Full range of motion Interpretation & Diagnostics Lab Results Interpretation Result Diagram: 10/24/16 0216 10/24/16 0216 Test 10/24/16 02:16 White Blood Count 7.0th/mm3 (3.8-10.1) Red Blood Count 4.21mil/mm3 (4.40-5.80) Hemoglobin 12.3g/dL (13.8-17.2) Hematocrit 37.5% (41.0-50.0) Mean Corpuscular Volume 89.1fL (81-100) Mean Corpuscular Hemoglobin 29.2pg (27.0-35.0) Mean Corpuscular Hemoglobin Concent 32.8% (32.0-37.0) Red Cell Distribution Width 15.1% (12.3-15.4) Platelet Count 180bil/L (150-400) Neutrophils (%) (Auto) 78.1% (40-74) Lymphocytes (%) (Auto) 15.3% (14-46) Monocytes (%) (Auto) 6.4% (4-12) Eosinophils (%) (Auto) 0% (0-5) Basophils (%) (Auto) 0.1% (0-3) Prothrombin Time 10.7sec (8.1-12.5) Prothromb Time International Ratio 1.00ratio Sodium Level 135mEq/L (134-144) Potassium Level 4.3mEq/L (3.5-5.2) Chloride Level 97mEq/L (97-108) Carbon Dioxide Level 21mmol/L (18-29) Blood Urea Nitrogen 29mg/dL (8-27) Creatinine 1.63mg/dL (0.76-1.27) Estimat Glomerular Filtration Rate 44mL/min (>59) Glucose Level 120mg/dL (60-99) Lactic Acid Level 1.9mmol/L (0.4-2.0) Calcium Level 9.4mg/dL (8.5-10.1) Magnesium Level 2.1mg/dL (1.6-2.6) Total Bilirubin 0.3mg/dL (0.0-1.2) Aspartate Amino Transf (AST/SGOT) 35U/L (0-50) Alanine Aminotransferase (ALT/SGPT) 23U/L (0-44) Alkaline Phosphatase 100U/L (25-160) Total Protein 8.6g/dL (6.4-8.4) Albumin 4.6g/dL (3.4-5.0) Lipase 30U/L (13-60) ECG Interpretation ECG Interpretation: Normal sinus rhythm. Rate 84. Borderline prolonged HI interval. Time: 02:29 Interpreted by: ED physician CT Abd / Pelvis Interpretation Conclusion: No evidence for small bowel obstruction. Prior partial colectomy with left lower quadrant colostomy. No findings of diverticultis or colitis. Small nonspecific lymph noses with surrounding haziness in the jejunal mesentery. Numerous large and small bowel air-fluid levels suggesting a mild ileus or gastroenteritis. Signed by Dr. Sergio Paiz 10/24/16 02:54 Study type: Abdominal CT no contrast Interpretation / Wet Read by: Interpret - Radiologist Re-Eval/Medical Decision Med Decision/Clinical Course 76-year-old man with dementia, remote colostomy and history of bowel obstructions requiring surgery once prior, presents now with vomiting but no diarrhea. He had a sick contact consisting of his who is taking care of a sick child in another location. She was nauseated but did not vomit and had no diarrhea. The child was apparently quite acutely ill. His exam is basically benign. His labs are unrevealing. CT of his abdomen shows some mild ileus and no other significant findings. He is taking by mouth fluid here after some Zofran. No indication of structural obstruction. Home now for by mouth fluids, ondansetron as needed, and prompt return if worsening. Source of Hx: Old records Time of Eval: 03:50 Patient Status: Condition improved Re-Evaluation/Progress Note: Rechecked pt. Discussed lab results, imaging results, diagnosis and plan to discharge. Pt understands and agrees with the plan. F/U instructions and RTER warning given. All questions addressed. Counseled Regarding: Diagnosis, Lab results, Need for follow-up, When/why to return to ED Discharge & Departure Primary Impression: Gastroenteritis Additional Impression: Ileus Disposition: Home Vital Signs - All Vital Signs Date Time Temp Pulse Resp B/P Pulse Ox O2 Delivery O2 Flow Rate FiO2 10/24/16 04:52 87 21 157/59 94 Room Air 10/24/16 04:06 86 17 165/64 96 Room Air 10/24/16 01:54 38.0 87 16 165/71 95 Room Air )( All Prior VS Reviewed: Yes Condition: Stable Patient Instructions: Acute Nausea and Vomiting (ED), Gastroenteritis (ED) Additional Instructions: Clear fluids and advance slowly as tolerated. Zofran up to four times daily if needed for nausea. Follow-up with your doctor in the office. Return if he develops high fever, uncontrolled vomiting, worsening abdominal pain, or any new symptoms of concern. Referrals: Jose Duong MD (PCP) Scribe Attestation Portions of this note were transcribed by Lety Valladares. I, , personally performed the history, physical exam and medical decision- making;I reviewed and confirmed the accuracy of the information in the transcribed note. Signed by Berna Shine. 10/24/16 04:47 copies to: Jose Duong MD, Christopher W MD Oct 24, 2016 02:07 Lety Valladares Oct 24, 2016 02:15
[2016-10-24] MEDS ORDERED: 0.9% Sodium Chloride 1,000 ML IV ONE (02:14)
[2016-10-24] MEDS ORDERED: Ondansetron 2 mg/mL 2 mL Inj IVPUSH ONE (02:15)
[2016-10-24] MEDS ORDERED: HYDROmorphone 0.5 mg/0.5 mL iSecure Syringe IVPUSH PRN (02:15)
[2016-10-24 02:27] LABS: BASOPHILS % (AUTO) 0.1 % (0-3); EOSINOPHILS % (AUTO) 0 % (0-5); MONOCYTES % (AUTO) 6.4 % (4-12); Mean Corpuscular Hemoglobin 29.2 pg (27.0-35.0); Mean Corpuscular Volume 89.1 fL (81-100); NEUTROPHILS % (AUTO) 78.1 % (40-74); Platelet Count 180 bil/L (150-400)
[2016-10-24 02:48] LABS: Magnesium 2.1 mg/dL (1.6-2.6)
[2016-10-24] MEDS ORDERED: _Ondansetron ODT 4 mg Tablet PO PRN (03:55)
[2016-10-24 04:06] VITALS: BP 165/64; PULSE 86; RESP 17; O2SAT 96
[2016-10-24] MEDS ORDERED: ONDA8TAB10 PO (04:37)
[2016-10-24 04:52] VITALS: BP 157/59; PULSE 87; RESP 21; O2SAT 94
--- NOTE | 2016-10-24 10:10 | DRSVH ---
PROCEDURE: CT ABDOMEN AND PELVIS WITHOUT CONTRAST ([id number]) INDICATIONS: 76 year-old man with generalized abdominal pain and back pain. TECHNIQUE: After the administration of oral contrast, 5 mm thick sections acquired from the diaphragms to the sy mphysis. 5 mm coronal and sagittal reformats were performed. For radiation dose reduction, the foll owing was used: automated exposure control, adjustment of mA and/or kV according to patient size. COMPARISON: [facility], MR, MR PELVIS WO CON, 07/11/2015, 10:25. [facility], CT, CT NECK CHEST ABD PELVIS WO CON, 07/21/2015, 17:11. [facility], CR, XR LUMBAR SPINE 2 OR 3VW, 09/23/2015, 10:32. [facility], CT, CT CHEST WO CO N, 10/25/2015, 15:22. FINDINGS: Image quality: Excellent. ABDOMEN: Lung bases: Lung bases are clear. Heart size is normal. There is a small hiatal hernia. Solid organs: Liver and spleen are normal in size. Gallbladder is normal. Pancreas is normal in si ze. No adrenal nodules. Both kidneys are normal in size, without hydronephrosis or nephrolithiasis. Peritoneum and bowel: There is partial colectomy. There is a colostomy in the left anterior lower ab domen. Bowel loops demonstrate normal wall thickness and caliber. No free fluid or air. There is pr esacral soft tissue thickening. Nodes and vessels: No retroperitoneal or mesenteric adenopathy by size criteria. Aorta and inferior vena cava are normal in size. Moderate atherosclerosis of the splenic artery and distal aorta, as w ell as iliac arteries bilaterally Miscellaneous: No ventral hernias. PELVIS: Genitourinary: Bladder wall thickness is normal. Miscellaneous: No inguinal hernias or adenopathy. Bones: There are vertebral body compression fractures severe at L1, moderate at L4, and mild at T12 a nd L3. There is sclerotic appearance in the sacral ala bilaterally, left acetabular roof and left il iac bone adjacent to the sacroiliac joint. IMPRESSION: 1. Partial colectomy and a colostomy in the left lower abdomen. No evidence for small bowel obstructi on. 2. Small hiatal hernia. 3. Presacral soft tissue thickening. 4. Multiple non-acute compression fractures in lower thoracic and lumbar spine. 5. Sclerotic appearance of the sacral ala bilaterally, left acetabular roof and left iliac bone adjac ent to the left sacroiliac joint, probably sequelae of insufficiency fractures which were seen on the comparison MRI dated 07/11/2015. No significant discrepancy with the fast food shift lead radiology preliminary report. Dictated by: Charis Zee M.D. on 10/24/2016 at 9:57 Approved by: Charis Zee M.D. on 10/24/2016 at 10:09
== END 2016-10-24 05:18 | disposition home or self-care (01) ==
LOC: SED 01:50
DX: K52.9 Noninfective gastroenteritis and colitis, unspecified (principal); K56.7 Ileus, unspecified; I12.9 Hypertensive chronic kidney disease with stage 1 through stage 4 chronic kidney disease, or unspecified chronic kidney disease; N18.3 Chronic kidney disease, stage 3 (moderate); I48.91 Unspecified atrial fibrillation; J45.909 Unspecified asthma, uncomplicated; F12.10 Cannabis abuse, uncomplicated; Z87.891 Personal history of nicotine dependence; Z90.89 Acquired absence of other organs; Z93.3 Colostomy status; Z85.038 Personal history of other malignant neoplasm of large intestine; Z88.6 Allergy status to analgesic agent; Z88.8 Allergy status to other drugs, medicaments and biological substances
CPT/HCPCS: 36415; 74176; 80053; 83605; 83690; 83735; 85025; 85610; 93005; 96361; 96374; 99285; J2405; J7030

== ENCOUNTER 2016-10-25 21:19 | Emergency (ER) | payer MEDICARE ==
[~2016-10-25] VITALS: Ht 172.7 cm; Wt 77.0 kg
[~2016-10-25 21:19] MED LIST changes: +ONDA8TAB10 PO
[2016-10-25 21:29] VITALS: BP 123/56; PULSE 89; RESP 20; O2SAT 92
--- NOTE | 2016-10-25 22:14 | ED.REPORT ---
HPI-General Illness Date of Service Oct 25, 2016 ED Provider: Miki Perez MD Patient is a 76 year old male with a hx of afib, colon CA, HTN, kidney disease, and small bowel obstruction who was seen in the ED 2 nights ago with gastroenteritis. Since then, he visited Dr. Brink who told him that if he gets the shakes, he needs to go to the ED. He had an episode of shakes this evening while sitting on his couch watching TV. He is still experiencing diarrhea and chills. He denies vomiting, fever, dysuria, cough, or any other symptoms. He has not been taking his regular medications which include an anti-diarrheal medication. He has had the shakes associated with illness previously. Nursing Notes Stated Complaint: POSITIVE FOR FLU, SHAKING Chief Complaint: General Complaint Nursing Notes Reviewed: Yes Allergies: Coded Allergies: codeine (Verified Adverse Reaction, Unknown, rash, 06/25/16) lansoprazole (Verified Adverse Reaction, Unknown, rash, 06/25/16) Scheduled Atorvastatin Calcium (Atorvastatin Calcium) 20 Mg Tablet 20 MG PO DAILY Calcium Carbonate (Calcium) 600 Mg Tablet 600 MG PO BID Cholecalciferol (Vitamin D3) (Vitamin D3) 1,000 Unit Tab.chew 1,000 UNIT PO BID Glucosamine (Glucosamine) 500 Mg Tablet 500 MG PO BID Levofloxacin (Levofloxacin) 750 Mg Tablet 750 MG PO DAILY Magnesium Oxide (Magnesium) 250 Mg Tablet 250 MG PO BID Multivit-Min/FA/Lycopen/Lutein (Centrum Silver Men Tablet) 300 Mcg-600 Mcg-300 Mcg Tablet 1 EACH PO DAILY [place]-3S/Dha/Epa/Fish Oil ([place] Power 1,050 mg Softgel) 1,050 Mg Capsule 1,050 MG PO BID Omeprazole (Omeprazole) 20 Mg Capsule. 20 MG PO DAILY Ondansetron ODT (Ondansetron ODT) 8 Mg Tab.rapdis 8 MG PO QID Scheduled PRN Loperamide HCl (Imodium A-D) 2 Mg Capsule 2 MG PO DAILY PRN PRN For Diarrhea or Loose Stool General Time Seen by : 21:45 Chief Complaint Other (Shakes ) Hx Obtained From: Patient, Spouse Recent Healthcare: Recent doctor visit Past Medical History Past Medical History Colostomy Arthritis Asthma Atrial fibrillation Cancer, colon carotid stenosis carotid surgery High cholesterol Hypertension Osteoporosis Stage 3 Kidney Disease thoracolumbar spine traumatic compression fractures Small bowel obstruction Reports: GERD Past Surgical History Colostomy X2 Abdominal Surgerys in 2001 and 2006 fo bowel obstruction atrial ablation Reports: Appendectomy Smoking History Former Smoker Social History Drug Use: THC Other Social History: Good social support, Ambulatory Status Independent Review of Systems Full Review of Systems Constitutional: Reports: Chills, Denies: Fever Respiratory: Denies: Non-productive cough GI: Reports: Diarrhea, Denies: Vomiting Male: Denies Dysuria Neurologic: Reports: Shaking Complete sys rev & neg: except as marked. Physical Exam Vital Signs Vital Signs Date Time Temp Pulse Resp B/P Pulse Ox O2 Delivery O2 Flow Rate FiO2 10/26/16 01:59 106 20 154/53 98 Room Air 10/25/16 21:29 36.9 89 20 123/56 92 Room Air Initial VS: Reviewed, Vital signs normal Head / Eyes: Atraumatic, Normocephalic Neck: Full range of motion Respiratory: Breath sounds normal, Clear to auscultation, No respiratory distress Cardiovascular: Regular rate & rhythm, Heart sounds normal Skin: Warm, Dry Neurologic: Alert, Oriented, Nonfocal Psychiatric: Mood/affect normal, Behavior normal, Normal thought content General/Constitutional: Awake, Alert, No acute distress Abdomen: Atraumatic, Soft, Non-tender, No distention Interpretation & Diagnostics Lab Results Interpretation Result Diagram: 10/25/162 10/25/162231 Test 10/25/16 22:32 10/25/16 23:00 10/26/16 00:39 White Blood Count 4.0th/mm3 (3.8-10.1) Red Blood Count 4.10mil/mm3 (4.40-5.80) Hemoglobin 12.0g/dL (13.8-17.2) Hematocrit 36.7% (41.0-50.0) Mean Corpuscular Volume 89.5fL (81-100) Mean Corpuscular Hemoglobin 29.3pg (27.0-35.0) Mean Corpuscular Hemoglobin Concent 32.7% (32.0-37.0) Red Cell Distribution Width 15.2% (12.3-15.4) Platelet Count 150bil/L (150-400) Neutrophils (%) (Auto) 72.8% (40-74) Lymphocytes (%) (Auto) 21.3% (14-46) Monocytes (%) (Auto) 3.3% (4-12) Eosinophils (%) (Auto) 2.0% (0-5) Basophils (%) (Auto) 0.3% (0-3) Sodium Level 137mEq/L (134-144) Potassium Level 3.9mEq/L (3.5-5.2) Chloride Level 99mEq/L (97-108) Carbon Dioxide Level 20mmol/L (18-29) Blood Urea Nitrogen 30mg/dL (8-27) Creatinine 1.66mg/dL (0.76-1.27) Estimat Glomerular Filtration Rate 43mL/min (>59) Glucose Level 94mg/dL (60-99) Lactic Acid Level 2.9mmol/L (0.4-2.0) Calcium Level 9.0mg/dL (8.5-10.1) Phosphorus Level 3.6mg/dL (2.5-4.9) Magnesium Level 2.0mg/dL (1.6-2.6) Total Bilirubin 0.4mg/dL (0.0-1.2) Aspartate Amino Transf (AST/SGOT) 420U/L (0-50) Alanine Aminotransferase (ALT/SGPT) 363U/L (0-44) Alkaline Phosphatase 83U/L (25-160) Total Protein 7.8g/dL (6.4-8.4) Albumin 4.1g/dL (3.4-5.0) Procalcitonin 0.65ng/mL (0.00-0.08) Prothrombin Time 10.4sec (8.1-12.5) Prothromb Time International Ratio 0.97ratio Activated Partial Thromboplast Time 26.8sec (22.8-33.0) Urine Color Yellow (YELLOW) Urine Appearance Clear (CLEAR,HAZY) Urine pH 5.5 (5.0-8.0) Urine Specific [place] 1.025 (1.003-1.035) Urine Protein 30mg/dL (NEG,TRACE) Urine Glucose (UA) Negativemg/dL (NEGATIVE) Urine Ketones Negativemg/dL (NEGATIVE) Urine Occult Blood Trace (NEGATIVE) Urine Nitrite Negative (NEGATIVE) Urine Bilirubin Negative (NEGATIVE) Urine Urobilinogen Normalmg/dL (NORMAL) Urine Leukocyte Esterase Negative (NEGATIVE) Urine RBC 0-2/hpf (0-2) Urine WBC 0-5/hpf (0-5) Urine Epithelial Cells Occasional/hpf (NONE-MOD) Urine Crystals None seen (NONE SEEN) Urine Bacteria Few/hpf (NONE-FEW) Urine Hyaline Casts None/lpf (NONE) Urine Granular Casts 5-20 (NONE SEEN) Urine Waxy Casts None seen (NONE SEEN) Urine Red Blood Cell Casts None seen (NONE SEEN) Urine White Blood Cell Casts None seen (NONE SEEN) Urine Mucus Present (None Seen) Urine Trichomonas None seen (NONE SEEN) Urine Yeast None (NONE SEEN) Urinalysis Comment Amorphous sediment Urine Culture Reflexed Not indicated X-Ray Chest Interpretation Chest Xray Interpretation: Non-acute View: Portable, 1 view Interpretation / Wet Read by: Interpret - ED physician Re-Eval/Medical Decision Med Decision/Clinical Course 76-year-old with history of bowel obstructions presents after exposure to gastroenteritis with vomiting two days ago, now progressing to diarrhea. A couple of brief episodes of chills and was advised. He had no actual fever and no other significant complaints. Stool studies have been sent for PCR to be done this morning. Blood cultures have been obtained. He has not been having any shakes has been in no distress throughout his observation period here. CBC is unremarkable. He is discharged home with labs as above pending. We will contact him if his stool studies require intervention. Unlikely to have a positive blood culture but they are pending. Time of Eval: 01:23 Re-Evaluation/Progress Note: Rechecked pt. Discussed plan for discharge. Patient understands and agrees with plan. All questions addressed at this time. Counseled Regarding: Diagnosis, Lab results, Need for follow-up, When/why to return to ED Discharge & Departure Primary Impression: Gastroenteritis Additional Impression: Chills (without fever) Disposition: Home Discharge Condition All VS Reviewed: Yes Condition: Stable Additional Instructions: Your stool studies will be available midday tomorrow. We will contact you if anything requires any intervention. Return here promptly if you develop high fever or any other new symptoms of concern. Do not take your loperamide for a few days until your situation has been evaluated fully and your stool results are available. Follow-up with your doctor in the office. Referrals: Jose Duong MD (PCP) Scribe Attestation Portions of this note were transcribed by Wade Kwok. I, Dr. Perez personally performed the history, physical exam and medical decision-making; I reviewed and confirmed the accuracy of the information in the transcribed note. Signed by: Wade Kwok 10/26/2016, 0129 copies to: Jose Duong MD, Christopher W MD Oct 25, 2016 22:14 WADE KWOK Oct 25, 2016 22:20
[2016-10-25 22:35] LABS: BASOPHILS % (AUTO) 0.3 % (0-3); MONOCYTES % (AUTO) 3.3 % (4-12); Mean Corpuscular Hemoglobin 29.3 pg (27.0-35.0); Mean Corpuscular Volume 89.5 fL (81-100); NEUTROPHILS % (AUTO) 72.8 % (40-74); Platelet Count 150 bil/L (150-400)
[2016-10-25 23:07] LABS: Phosphorus 3.6 mg/dL (2.5-4.9)
[2016-10-25 23:34] LABS: INR 0.97 ratio
[2016-10-25] MEDS ORDERED: 0.9% Sodium Chloride 1,000 ML IV ONE (23:40)
[2016-10-26 01:04] LABS: APPEARANCE,URINE CLEAR (CLEAR,HAZY); COLOR,URINE YELLOW (YELLOW); OCCULT BLOOD,URINE TRACE (NEGATIVE); PH,URINE 5.5 (5.0-8.0); UROBILINOGEN,URINE NORMAL (NORMAL)
[2016-10-26 01:59] VITALS: BP 154/53; PULSE 106; RESP 20; O2SAT 98
--- NOTE | 2016-10-26 08:39 | DRSVH ---
PROCEDURE: X-RAY CHEST ONE VIEW, PORTABLE ([id number]) INDICATIONS: "shakes" TECHNIQUE: One view of the chest was acquired. COMPARISON: [facility], CR, XR CHEST 1VW (PORTABLE), 06/28/2016, 12:01. FINDINGS: Surgical changes and devices: None. Lungs and pleura: No pleural effusions or pneumothorax. Lungs are clear. Diffuse scarring/intersti tial change. Mediastinum: Mediastinal contours appear normal. Heart size is normal. Bones and chest wall: No suspicious bony lesions. Overlying soft tissues appear unremarkable. Left shoulder calcific tendinitis IMPRESSION: No acute disease Dictated by: Erick Henry M.D. on 10/26/2016 at 8:37 Approved by: Erick Henry M.D. on 10/26/2016 at 8:38
== END 2016-10-26 01:59 | disposition home or self-care (01) ==
LOC: SED 21:19
DX: K52.9 Noninfective gastroenteritis and colitis, unspecified (principal); R68.83 Chills (without fever); E78.00 Pure hypercholesterolemia, unspecified; F12.10 Cannabis abuse, uncomplicated; I48.91 Unspecified atrial fibrillation; I12.9 Hypertensive chronic kidney disease with stage 1 through stage 4 chronic kidney disease, or unspecified chronic kidney disease; N18.3 Chronic kidney disease, stage 3 (moderate); J45.909 Unspecified asthma, uncomplicated; I10 Essential (primary) hypertension; K21.9 Gastro-esophageal reflux disease without esophagitis; Z85.038 Personal history of other malignant neoplasm of large intestine; Z93.3 Colostomy status; Z87.19 Personal history of other diseases of the digestive system; Z90.89 Acquired absence of other organs; Z87.891 Personal history of nicotine dependence; Z88.8 Allergy status to other drugs, medicaments and biological substances; Z88.5 Allergy status to narcotic agent
CPT/HCPCS: 36415; 71010; 80053; 81000; 83605; 83735; 84100; 84145; 85025; 85610; 85730; 87040; 87507; 99285; J7030

== ENCOUNTER 2016-11-25 16:32 | Emergency (ER) | payer MEDICARE ==
[~2016-11-25] VITALS: Ht 165.7 cm; Wt 81.8 kg
[2016-11-25 16:34] VITALS: BP 126/75; PULSE 69; RESP 16; O2SAT 98
[2016-11-25 17:42] LABS: BASOPHILS % (AUTO) 0.2 % (0-3); EOSINOPHILS % (AUTO) 2.9 % (0-5); MONOCYTES % (AUTO) 9.1 % (4-12); Mean Corpuscular Hemoglobin 28.8 pg (27.0-35.0); NEUTROPHILS % (AUTO) 39.9 % (40-74); Platelet Count 174 bil/L (150-400)
--- NOTE | 2016-11-25 18:01 | ED.REPORT ---
HPI-Abd Pain M 40 and Over Date of Service Nov 25, 2016 ED Provider: Clifton Chapa MD Pt is a 76 y/o male w/ a hx of colon CA s/p hemicolectomy and ostomy placement now in remission, HTN, HLD, CKD 3, presenting to the ED with his c/o near- constant periumbilical abdominal cramping onset 2 days ago. Pt denies fever, chills, nausea, vomiting, diarrhea, constipation, dysuria, change in back pain. His last BM was yesterday and his ostomy has been flowing normally. His pain is somewhat similar to his prior SBO which occurred in June and required surgical intervention. Nursing Notes Stated Complaint: ABDOMINAL CRAMPS Chief Complaint: Male Abdominal Pain Nursing Notes Reviewed: Yes Allergies: Coded Allergies: codeine (Verified Adverse Reaction, Unknown, rash, 11/25/16) lansoprazole (Verified Adverse Reaction, Unknown, rash, 11/25/16) Scheduled Atorvastatin Calcium (Atorvastatin Calcium) 20 Mg Tablet 20 MG PO DAILY Calcium Carbonate (Calcium) 600 Mg Tablet 600 MG PO BID Cephalexin (Keflex) 500 Mg Capsule 500 MG PO QID Cholecalciferol (Vitamin D3) (Vitamin D3) 1,000 Unit Tab.chew 1,000 UNIT PO BID Glucosamine (Glucosamine) 500 Mg Tablet 500 MG PO BID Levofloxacin (Levofloxacin) 750 Mg Tablet 750 MG PO DAILY Magnesium Oxide (Magnesium) 250 Mg Tablet 250 MG PO BID Multivit-Min/FA/Lycopen/Lutein (Centrum Silver Men Tablet) 300 Mcg-600 Mcg-300 Mcg Tablet 1 EACH PO DAILY [place]-3S/Dha/Epa/Fish Oil ([place] Power 1,050 mg Softgel) 1,050 Mg Capsule 1,050 MG PO BID Omeprazole (Omeprazole) 20 Mg Capsule.dr 20 MG PO DAILY Ondansetron ODT (Ondansetron ODT) 8 Mg Tab.rapdis 8 MG PO QID Scheduled PRN Loperamide HCl (Imodium A-D) 2 Mg Capsule 2 MG PO DAILY PRN PRN For Diarrhea or Loose Stool General Time Seen by MD: 17:59 Chief Complaint Abdominal pain Hx Obtained From: Patient Arrived By: Walk-in Sudden in Onset?: No Onset Occurred: 2 days ago Symptom Duration: Since onset Progression since Onset: Constant Location: : Suprapubic Quality: Painful Radiation: : Does not radiate Severity: Current: Moderate Severity: Maximum: Moderate Recent Healthcare: No recent hospitalization Similar Sx Previous: Yes Past Medical History Past Medical History Arthritis Asthma Atrial fibrillation Hx colon cancer in remission s/p hemicolectomy and ostomy placement carotid stenosis carotid surgery Hyperlipidemia Hypertension Osteoporosis Stage 3 Kidney Disease thoracolumbar spine traumatic compression fractures Hx small bowel obstruction GERD Past Surgical History Colostomy X2 Abdominal Surgerys in 2001 and 2006 fo bowel obstruction atrial ablation Reports: Appendectomy Smoking History Former Smoker Social History Drug Use: THC Other Social History: Good social support, Ambulatory Status Independent Review of Systems Constitutional: Denies: Fever GI: Reports: Abdominal pain, Denies: Constipation, Diarrhea, Nausea, Vomiting Complete sys rev & neg: except as marked. Physical Exam Initial Vital Signs Vital Signs (First) Date Time Temp Pulse Resp B/P Pulse Ox O2 Delivery O2 Flow Rate FiO2 11/25/16 16:34 36.8 69 16 126/75 98 Room Air Initial VS: Reviewed, Vital signs normal Head / Eyes: Atraumatic, Normocephalic, PERRL ENT: Mucous membranes moist, Conjunctiva normal, No scleral icterus Neck: Supple, Full range of motion Extremities: Vascular intact, Neuro intact, No swelling Skin: Warm, Dry, No cyanosis Neurologic: Alert, Oriented, Nonfocal Psychiatric: Mood/affect normal, Behavior normal, Normal thought content General/Constitutional: Awake, Alert, No acute distress, Cooperative, Not toxic appearing Respiratory / Chest: Breath sounds NL, Breath sounds = bilat, No respiratory distress, No rales, No rhonchi, No wheezing Cardiovascular: Heart rate NL, Regular rhythm, Heart sounds NL, No murmurs Abdomen: Atraumatic, Soft, No guarding, No rebound, BS normoactive, No distention, No palpable mass Mild suprapubic tenderness Mild diffuse lower abdominal tenderness Interpretation & Diagnostics Lab Results Interpretation Result Diagram: 11/25/16 1737 11/25/16 1737 Test 11/25/16 17:37 11/25/16 17:38 White Blood Count 5.5th/mm3 (3.8-10.1) Red Blood Count 3.51mil/mm3 (4.40-5.80) Hemoglobin 10.1g/dL (13.8-17.2) Hematocrit 31.6% (41.0-50.0) Mean Corpuscular Volume 90.0fL (81-100) Mean Corpuscular Hemoglobin 28.8pg (27.0-35.0) Mean Corpuscular Hemoglobin Concent 32.0% (32.0-37.0) Red Cell Distribution Width 15.2% (12.3-15.4) Platelet Count 174bil/L (150-400) Neutrophils (%) (Auto) 39.9% (40-74) Lymphocytes (%) (Auto) 47.9% (14-46) Monocytes (%) (Auto) 9.1% (4-12) Eosinophils (%) (Auto) 2.9% (0-5) Basophils (%) (Auto) 0.2% (0-3) Sodium Level 145mEq/L (134-144) Potassium Level 4.0mEq/L (3.5-5.2) Chloride Level 106mEq/L (97-108) Carbon Dioxide Level 25mmol/L (18-29) Blood Urea Nitrogen 26mg/dL (8-27) Creatinine 1.54mg/dL (0.76-1.27) Estimat Glomerular Filtration Rate 47mL/min (>59) Glucose Level 101mg/dL (60-99) Calcium Level 8.9mg/dL (8.5-10.1) Magnesium Level 1.7mg/dL (1.6-2.6) Total Bilirubin 0.2mg/dL (0.0-1.2) Aspartate Amino Transf (AST/SGOT) 18U/L (0-50) Alanine Aminotransferase (ALT/SGPT) 14U/L (0-44) Alkaline Phosphatase 76U/L (25-160) Total Protein 6.7g/dL (6.4-8.4) Albumin 3.7g/dL (3.4-5.0) Lipase 34U/L (13-60) Hold Blue Top Tube Received (Received) CT Abd / Pelvis Interpretation IMPRESSION: 1. No acute findings to explain abdominal pain. Postoperative changes involve the distal and proximal colon as before. 2. Nonacute moderate L1 and L4 vertebral body compression fractures. 3. Central mesenteric fat stranding again noted, without associated mesenteric adenopathy, consistent with mesenteric panniculitis. Dictated by: Efe Hurtado M.D. on 11/25/2016 at 18:58 Approved by: Efe Hurtado M.D. on 11/25/2016 at 19:12 Study type: Abdominal CT no contrast Interpretation / Wet Read by: Interpret - Radiologist Re-Eval/Medical Decision Med Decision/Clinical Course 76-year-old male history of colon cancer status post resection with colostomy in place for many years presenting with lower abdominal pain. He had a small bowel obstruction several months ago. He reports good colostomy output. He is tender diffuse lower abdomen mild no rebound or guarding. Vital signs are stable. Labs are stable. CT scan shows no evidence of small bowel obstruction. There is some mesenteric panniculitis. There is no evidence cellulitis on exam. As no evidence of sepsis. Hospital inflammatory cannot rule out infectious. Patient will be treated with Keflex parents return if he has any new or worsening pain, fevers, nausea vomiting, any other new or worsening symptoms. Advised f/u PMD 2-3 days. Time of Eval: 19:51 Re-Evaluation/Progress Note: Pt rechecked. Discussed imaging. Informed pt of plan for discharge. Pt understands and agrees with plan for discharge. F/U instructions and RTER warnings given. All questions addressed. Counseled Regarding: Diagnosis, Lab results, Need for follow-up, When/why to return to ED Discharge & Departure Primary Impression: Generalized abdominal pain Additional Impression: Mesenteric panniculitis Disposition: Home Vital Signs - All Vital Signs Date Time Temp Pulse Resp B/P Pulse Ox O2 Delivery O2 Flow Rate FiO2 11/25/16 20:02 73 15 118/63 97 Room Air 11/25/16 19:00 72 10 133/58 97 Room Air 11/25/16 16:34 36.8 69 16 126/75 98 Room Air )( All Prior VS Reviewed: Yes Condition: Stable Patient Instructions: Acute Abdominal Pain (ED) Additional Instructions: The cause of your symptoms is unclear but does not appear emergent. The CT scan showed signs of mild inflammation of your abdominal wall, also known as mesenteric panniculitis. There was no sign of emergent condition or bowel obstruction. Panniculitis is sometimes seen during infections but is fairly nonspecific. In case of possible infection, I would like to start you on antibiotics. Return to the emergency department if you experience worsening abdominal pain, fever with temp >100.4F, vomiting, or for other concerning symptoms. Follow-up with your primary care doctor in 2-3 days. Call to schedule an appointment. Referrals: Jose Duong MD (PCP) Scribe Attestation Portions of this note were transcribed by Mando Yoon. I, Dr. Chapa personally performed the history, physical exam and medical decision-making; I reviewed and confirmed the accuracy of the information in the transcribed note. copies to: Jose Duong MD, Ben M MD Nov 25, 2016 18:00 MANDO YOON Nov 25, 2016 18:25
[2016-11-25 18:02] LABS: Magnesium 1.7 mg/dL (1.6-2.6)
[2016-11-25] MEDS ORDERED: 0.9% Sodium Chloride 1,000 ML IV ONE (18:28)
[2016-11-25] MEDS ORDERED: Ondansetron 2 mg/mL 2 mL Inj IVPUSH PRN (18:30)
[2016-11-25 19:00] VITALS: BP 133/58; PULSE 72; RESP 10; O2SAT 97
--- NOTE | 2016-11-25 19:14 | DRSVH ---
PROCEDURE: CT ABDOMEN AND PELVIS WITHOUT CONTRAST ([id number]) INDICATIONS: 76 year-old male with history of colostomy, now with abdominal pain. TECHNIQUE: Noncontrast 5 mm thick sections acquired from the diaphragms to the symphysis. 5 mm coronal and sagi ttal reformats were then performed. For radiation dose reduction, the following was used: automated exposure control, adjustment of mA and/or kV according to patient size. COMPARISON: [facility], CT, CT ABD PELVIS WO CON, 10/24/2016, 2:42. [facility], CT, CT NECK CHEST ABD PELVIS WO CON, 07/21/2015, 17:11. FINDINGS: Image quality: Excellent. ABDOMEN: Lung bases: Lung bases are clear. Heart size is normal. Solid organs: Liver and spleen are normal in size. Gallbladder is contracted at the time of scan. Pancreas is normal in contours. No adrenal nodules. Kidneys are normal in size, without hydronephro sis or nephrolithiasis. Peritoneum and bowel: Unenhanced bowel loops demonstrate normal wall thickness and caliber. Patient is status post distal colon resection with left lower quadrant colostomy, as well as proximal colon resection with ileocolic anastomosis. No free fluid or air. Nodes and vessels: No retroperitoneal or mesenteric adenopathy by size criteria. Central mesenteric fat stranding is again noted. Aorta and inferior vena cava are normal in caliber, with diffuse aorto iliac atherosclerosis. Miscellaneous: No ventral hernias. PELVIS: Genitourinary: Bladder wall thickness is normal. Prostate gland is small or surgically absent. Miscellaneous: No inguinal hernias or adenopathy. Bones: No suspicious bony lesions. Nonacute moderate L1 and L4 vertebral body compression fractures are again noted. IMPRESSION: 1. No acute findings to explain abdominal pain. Postoperative changes involve the distal and proximal colon as before. 2. Nonacute moderate L1 and L4 vertebral body compression fractures. 3. Central mesenteric fat stranding again noted, without associated mesenteric adenopathy, consistent with mesenteric panniculitis. Dictated by: Efe Hurtado M.D. on 11/25/2016 at 18:58 Approved by: Efe Hurtado M.D. on 11/25/2016 at 19:12
[2016-11-25] MEDS ORDERED: CEPH-512 PO (19:51)
[2016-11-25 20:02] VITALS: BP 118/63; PULSE 73; RESP 15; O2SAT 97
== END 2016-11-25 19:58 | disposition home or self-care (01) ==
LOC: SED 16:32
DX: R10.84 Generalized abdominal pain (principal); K65.4 Sclerosing mesenteritis; I12.9 Hypertensive chronic kidney disease with stage 1 through stage 4 chronic kidney disease, or unspecified chronic kidney disease; N18.3 Chronic kidney disease, stage 3 (moderate); K21.9 Gastro-esophageal reflux disease without esophagitis; E78.5 Hyperlipidemia, unspecified; J45.909 Unspecified asthma, uncomplicated; I48.91 Unspecified atrial fibrillation; Z88.8 Allergy status to other drugs, medicaments and biological substances; Z98.890 Other specified postprocedural states; Z87.891 Personal history of nicotine dependence; Z88.5 Allergy status to narcotic agent
CPT/HCPCS: 36415; 74176; 80053; 81002; 83690; 83735; 85025; 96360; 99285; G0463; J7030